=== PATIENT | male | born 1955 | race Caucasian/White ===

== ENCOUNTER 2017-09-26 11:05 | Inpatient (IN) | payer OTHER ==
[~2017-09-26] VITALS: Ht 170.2 cm; Wt 130.7 kg
[~2017-09-26 11:05] MED LIST: ALBUTEROL; ASPIRIN81 M2 PO; DIOVAN160 MG PO; POTASSIUM-9999 MG PO; SPIRIVA18 MCG INH; SYMBICORT 80-46.9 GM IH; TRAZODONE HCL50 MG PO; VITAMIN C500 M5 PO; Z.0.BENTYL20 MG; Z.0.DIOVAN HCT 3201 PO; Z.0.FLAGYL500 MG; Z.0.LASIX80 MG PO; Z.0.LOSARTAN-HCTZ1 E PO; Z.0.SIMVASTATIN40 MG PO; Z.0.VYTORIN 10-401 E PO; [UNRECOGNIZED DRUG - CODE] PO; [UNRECOGNIZED DRUG - OTHER] PO
--- NOTE | 2017-09-26 11:49 | Diagnostic Imaging Report ---
PROCEDURE: A single AP view of the chest. COMPARISON: 05/21/12 INDICATIONS: SOB FINDINGS: Lines/tubes: None. Lungs: Limited by body habitus. The lungs are well inflated. Mild vascular congestion and possibly interstitial edema. Pleura: There is no pleural effusion or pneumothorax. Heart and mediastinum: Enlarged cardiomediastinal silhouette. Bones: No acute bony abnormality. IMPRESSION: Enlarged cardiomediastinal silhouette, mild vascular congestion, and possibly mild interstitial edema, unchanged from prior exam. Dictated by: Pipo Cline M.D. on 09/26/2017 at 11:58 Electronically approved by: Pipo Cline M.D. on 09/26/2017 at 11:58
[2017-09-26 11:52] LABS: BASOPHILS # (AUTO) 0.1 (0.0-0.1); EOSINOPHILS # (AUTO) 0.1 (0.0-0.4); EOSINOPHILS % 1.1 % (0.0-6.0); HEMATOCRIT 60.2 % (38.2-49.6); HEMOGLOBIN 18.6 g/dL (14.0-18.0); LYMPHOCYTES # (AUTO) 1.8 (1.0-3.2); LYMPHOCYTES % 14.4 % (18.0-39.1); MEAN CORPUSCULAR HEMOGLOBIN 29.9 pg (28-32); MEAN CORPUSCULAR HGB CONC 30.9 g/dL (31-35); MEAN CORPUSCULAR VOLUME 96.8 fL (81-99); MONOCYTES # (AUTO) 1.5 (0.2-0.8); MONOCYTES % 11.5 % (4.4-11.3); NEUTROPHILS # (AUTO) 9.1 (2.1-6.9); NEUTROPHILS % 71.5 % (38.7-80.0); PLATELET COUNT 216 x10e3/uL (140-360); RED BLOOD COUNT 6.22 x10e6/uL (4.3-5.7); RED CELL DISTRIBUTION WIDTH 15.8 % (11.7-14.4)
[2017-09-26 12:08] LABS: INR 0.91; PROTHROMBIN TIME 12.7 seconds (11.9-14.5)
[2017-09-26 12:09] LABS: PARTIAL THROMBOPLASTIN TIME 30.7 seconds (23.8-35.5)
[2017-09-26 12:23] LABS: ALANINE AMINOTRANSFERASE 58 IU/L (0-55); ALBUMIN 2.9 g/dL (3.5-5.0); ALBUMIN/GLOBULIN RATIO 0.7 (0.8-2.0); ALKALINE PHOSPHATASE 107 IU/L (40-150); ANION GAP 12.2 mmol/L (8-16); BLOOD UREA NITROGEN 16 mg/dL (7-26); BUN/CREATININE RATIO 20 (6-25); CALCIUM 8.8 mg/dL (8.4-10.2); CARBON DIOXIDE 37 mmol/L (22-29); CHLORIDE 100 mmol/L (98-107); CREATININE, SERUM 0.82 mg/dL (0.72-1.25); EST GLOMERULAR FILTRATION RATE > 60 ML/MIN (60-); GLUCOSE 104 mg/dL (74-118); POTASSIUM 4.2 mmol/L (3.5-5.1); SODIUM 145 mmol/L (136-145)
[2017-09-26 12:26] LABS: B-TYPE NATRIURETIC PEPTIDE2 893.1 pg/mL (0-100)
[2017-09-26 12:33] LABS: TROPONIN I 0.051 ng/mL (0-0.300)
[2017-09-26] MEDS ORDERED: LEVOFLOXACIN 500MG/D5W 100ML IV SCH (13:00)
[2017-09-26 13:03] LABS: ABG PH 7.22 (7.31-7.41)
[2017-09-26 13:04] LABS: ABG HCO3 40 mmol/L (23-28); ABG PCO2 97 mmHg (41-51); ABG PO2 100 mmHg (80-105)
[2017-09-26] MEDS ORDERED: LEVOFLOXACIN 500MG/D5W 100ML 100 ML IV SCH (13:30)
[2017-09-26] MEDS: METHYLPREDNISOLONE SOD SUCC 125 MG/2ML VIAL IV SCH (14:08)
[2017-09-26] MEDS ORDERED: BISACODYL 5 MG TAB EC PO PRN (16:15)
[2017-09-26] MEDS ORDERED: TIOTROPIUM 18 MCG INH POWDER INH SCH (16:15)
[2017-09-26] MEDS ORDERED: TIOTROPIUM 18 MCG INH POWDER INH PRN (16:30)
[2017-09-26] MEDS: ALBUTEROL/IPRATROPIUM 3 ML NEB NEB SCH ×3 (16:39→23:45)
--- NOTE | 2017-09-26 16:51 | History and Physical ---
CHIEF COMPLAINT: Worsening dyspnea. HISTORY OF PRESENT ILLNESS: The patient is a 61-year-old man. He has a history of cardiac disease. He has had 2 prior stents in the past. He also had a catheterization and echocardiogram that showed a chronic decreased ejection fraction. He is currently under the care of Dr. Aldana and takes Lasix on a regular basis along with Diovan for his blood pressure. The patient also has chronic obstructive pulmonary disease. His last pulmonary function test done 3 or 4 years ago showed severe disease with an FEV1 of 1.56 liters. He has a history of sleep apnea and uses BiPAP at night. He came to the hospital complaining of worsening congestion and difficulty breathing. He noted a cough productive of only small amounts of phlegm. He did not complain of any chest pain. He may have had some chills, but does not seem certain about this. PAST MEDICAL HISTORY 1. Severe COPD based on GOLD criteria. 2. Obstructive sleep apnea. 3. Coronary artery disease. 4. Hypertension. PAST SURGICAL HISTORY 1. Status post cardiac stents. 2. Status post bilateral iliac stents in 2004. 3. Thumb surgery. 4. Knee surgery. FAMILY HISTORY: The paternal grandfather from cancer, and maternal grandfather from cancer. SOCIAL HISTORY: The patient quit smoking recently. He is not an active drinker. ALLERGIES: THERE ARE NO KNOWN DRUG ALLERGIES. REVIEW OF SYSTEMS: The patient does not have fever or chills. There is no headache. He is not having any neck pain. He does not complain of chest pain. He does note some difficulty breathing. He has some congestion and a rare cough. He is not having any abdominal pain. He has no nausea or vomiting. He does not complain of leg edema. He has no focal neurological problems. PHYSICAL EXAMINATION VITAL SIGNS: The blood pressure is 150/81, and the saturation is 97%. The heart rate is 83, and the respiratory rate is 24. HEENT: Examination shows no facial swelling or erythema. The nasal mucosa is normal. The oropharynx is normal. LYMPHATIC: Examination shows no submandibular, cervical or supraclavicular adenopathy. CARDIAC: Regular rate and rhythm with normal S1 and S2. There are no murmurs or rubs. LUNGS: Auscultation of the lungs reveals rhonchorous breath sounds bilaterally. There is no wheezing. ABDOMEN: Soft, nontender. There is no rebound or guarding. EXTREMITIES: 2 to 3+ leg edema. There are skin changes consistent with chronic venous stasis. LABORATORY DATA: The white blood cell count is 12.8, and the hemoglobin is 18.6. Platelet count is 216. The JBD-cm-cuitlexryt ratio is normal. The other electrolytes are within normal limits. The BNP is 893. Troponin I is normal. RADIOGRAPHIC DATA: The chest x-ray shows some cardiomegaly and possibly some cephalization. IMPRESSION 1. Cilcu-vk-vthziwc systolic congestive heart failure. 2. Lndhg-sl-mcxcztr respiratory failure. 3. Obstructive sleep apnea. 4. Chronic leg edema and chronic venous stasis. 5. Chronic obstructive pulmonary disease. 6. Obstructive sleep apnea. 7. Peripheral vascular disease and has required prior iliac stents. 8. Coronary disease that has required prior cardiac stent. PLAN 1. Patient will be started on Solu-Medrol at 1 mg per kg along with bronchodilators and antibiotics. 2. Patient will need an evaluation for influenza. 3. Patient will need intravenous diuretics because of his elevated BNP and congestive heart failure. 4. Continue BiPAP. 5. Evaluation of chronic leg edema. Job#: [id number]
[2017-09-26] MEDS ORDERED: ENOXAPARIN SOD INJ 40 MG/0.4 ML SYR SC SCH (17:00)
[2017-09-26] MEDS ORDERED: FUROSEMIDE INJ 10 MG/ML 4 ML VIAL IV SCH (17:00)
[2017-09-26 17:22] LABS: ABG PH 7.27 (7.31-7.41)
[2017-09-26 17:23] LABS: ABG HCO3 38 mmol/L (23-28); ABG PCO2 82 mmHg (41-51); ABG PO2 73 mmHg (80-105)
[2017-09-26] MEDS ORDERED: LORAZEPAM INJ 2 MG/ML VIAL IV ONE (17:30)
[2017-09-26] MEDS: AZITHROMYCIN 500MG/NS 250 ML 250 ML IV SCH (17:53)
[2017-09-26] MEDS: OSELTAMIVIR PHOSPHATE 75 MG CAP PO SCH (17:53)
[2017-09-26] MEDS: SIMVASTATIN 40 MG TAB PO SCH (17:56)
[2017-09-26] MEDS: TRAZODONE HCL 50 MG TAB PO SCH (17:56)
[2017-09-26] MEDS ORDERED: ASPIRIN 81 MG CHEW TAB PO ONE (19:00)
[2017-09-26 19:29] LABS: CREATINE KINASE MB 3.8 ng/mL (0.00-5.00)
[2017-09-26] MEDS: ASPIRIN 81 MG CHEW TAB PO SCH (19:31)
[2017-09-26 19:38] LABS: THYROID STIMULATING HORMONE 1.986 uIU/mL (0.350-4.940)
[2017-09-26 21:34] LABS: CREATINE KINASE MB 4.1 ng/mL (0.00-5.00); TROPONIN I 0.039 ng/mL (0-0.300)
[2017-09-26] MEDS ORDERED: AMIODARONE HCL 200 MG TAB PO SCH (22:00)
[2017-09-27] MEDS: ALBUTEROL/IPRATROPIUM 3 ML NEB NEB SCH ×6 (00:15→19:15)
--- NOTE | 2017-09-27 05:32 | Consultation ---
DATE OF CONSULTATION: September 26, 2017 CARDIOLOGY CONSULTATION ATTENDING PHYSICIAN: Dr. Sandeep Chester CLINICAL HISTORY: This is a 61-year-old white man referred by Dr. Sandeep Chester for cardiovascular evaluation in the setting of respiratory distress. This patient was hospitalized in April of 2017 at [facility] because of suicide ideation. Workup at that time included echocardiogram that showed an ejection fraction of 55% with left ventricular hypertrophy. He has been followed by Dr. Sandeep Chester and presented to the emergency room with shortness of breath and is being admitted. Cardiology consultation requested. PAST MEDICAL HISTORY: Remarkable for hypertension, hyperlipidemia, previous chest pains, COPD, peripheral vascular disease, status post bilateral iliac stents. He had a cardiac catheterization 3 years ago that was said to be negative. PAST SURGICAL HISTORY: Knee surgery and thumb surgery. FAMILY HISTORY: Grandfather had cancer. Grandmother had cancer. PERSONAL/SOCIAL HISTORY: He continues to smoke. ALLERGIES: NONE KNOWN. MEDICATIONS 1. Aspirin. 2. Potassium. 3. Symbicort 160 per 4.5 b.i.d. 4. Spiriva HandiHaler. 5. Lasix 80 mg daily. 6. Ventolin HFA. 7. Albuterol. 8. Trazodone 50 mg daily. 9. Simvastatin 40 mg daily. 10. Diovan 320 mg p.o. daily. REVIEW OF SYSTEMS: Noncontributory. PHYSICAL EXAMINATION GENERAL: He has a BiPAP in position. CARDIAC: Jugular veins are not distended. S1 and S2 are regular. There is no appreciable murmurs. LUNGS: Show wheezing. ABDOMEN: Soft. Bowel sounds are present. EXTREMITIES: Show no cyanosis, clubbing or edema. LABORATORY STUDIES: Chest x-ray showed cardiomegaly and pulmonary congestion. White count is 12,700, hemoglobin 18.6 and platelet count 216,000. The sodium is 145, potassium 4.2, bicarb 27, BUN 16, creatinine 0.8. BNP is 893. Albumin 2.9. Blood gas showed a pH of 7.22, pCO2 97, pO2 100. INR is 0.91. IMPRESSION 1. Respiratory failure due to end-stage chronic obstructive pulmonary disease. 2. Atypical chest pains of 2 weeks' duration with history of the same. 3. Hypertension. 4. Hyperlipidemia. 5. Peripheral vascular disease, status post bilateral iliac stents. 6. Negative cardiac catheterization in 2012. RECOMMENDATION: Treatment for REPORT NOT COMPLETED, LENGTH 5:35 Job#: [id number] RI
[2017-09-27] MEDS: METHYLPREDNISOLONE SOD SUCC 125 MG/2ML VIAL IV SCH ×2 (05:42→14:30)
[2017-09-27 07:25] VITALS: BP 187/85
[2017-09-27 07:56] LABS: BASOPHILS # (AUTO) 0.1 (0.0-0.1); BASOPHILS % 0.7 % (0.0-1.0); EOSINOPHILS % 0.1 % (0.0-6.0); HEMATOCRIT 63.5 % (38.2-49.6); HEMOGLOBIN 19.2 g/dL (14.0-18.0); LYMPHOCYTES # (AUTO) 1.2 (1.0-3.2); LYMPHOCYTES % 11.3 % (18.0-39.1); MEAN CORPUSCULAR HEMOGLOBIN 29.5 pg (28-32); MEAN CORPUSCULAR HGB CONC 30.2 g/dL (31-35); MEAN CORPUSCULAR VOLUME 97.5 fL (81-99); MONOCYTES % 9.9 % (4.4-11.3); NEUTROPHILS # (AUTO) 8.1 (2.1-6.9); NEUTROPHILS % 77.5 % (38.7-80.0); PLATELET COUNT 190 x10e3/uL (140-360); RED BLOOD COUNT 6.51 x10e6/uL (4.3-5.7); RED CELL DISTRIBUTION WIDTH 15.9 % (11.7-14.4)
[2017-09-27] MEDS ORDERED: ASPIRIN 81 MG CHEW TAB PO SCH (09:00)
[2017-09-27] MEDS ORDERED: NON-FORMULARY MEDICATION (Aspirin 81 MG) PO SCH (09:00)
[2017-09-27] MEDS ORDERED: POTASSIUM 595 MG PO SCH (09:00)
[2017-09-27] MEDS ORDERED: CHOLECALCIFEROL 2000 UNIT PO SCH (09:00)
[2017-09-27] MEDS ORDERED: VALSARTAN 160 MG TAB PO SCH (09:00)
[2017-09-27] MEDS: VALSARTAN 160 MG TAB PO SCH (09:13)
[2017-09-27] MEDS: CHOLECALCIFEROL 1,000 UNIT TAB PO SCH (09:13)
[2017-09-27] MEDS: OSELTAMIVIR PHOSPHATE 75 MG CAP PO SCH ×2 (09:13→17:14)
[2017-09-27] MEDS: ASPIRIN 81 MG CHEW TAB PO SCH (09:14)
[2017-09-27] MEDS: POTASSIUM CHLORIDE 10 MEQ TABCR PO SCH (09:14)
[2017-09-27] MEDS: ENOXAPARIN SOD INJ 40 MG/0.4 ML SYR SC SCH (09:15)
[2017-09-27] MEDS: NICOTINE 7 MG PATCH TOP SCH (09:15)
[2017-09-27] MEDS ORDERED: FUROSEMIDE INJ 100 MG in SODIUM CHLORIDE 0.9% 100 ML 90 ML IV SCH (09:30)
[2017-09-27 09:56] LABS: ALANINE AMINOTRANSFERASE 51 IU/L (0-55); ALBUMIN 2.9 g/dL (3.5-5.0); ALBUMIN/GLOBULIN RATIO 0.7 (0.8-2.0); ALKALINE PHOSPHATASE 100 IU/L (40-150); ANION GAP 12.2 mmol/L (8-16); BLOOD UREA NITROGEN 18 mg/dL (7-26); BUN/CREATININE RATIO 23 (6-25); CALCIUM 8.6 mg/dL (8.4-10.2); CARBON DIOXIDE 37 mmol/L (22-29); CHLORIDE 100 mmol/L (98-107); CREATINE KINASE 41 IU/L (30-200); CREATININE, SERUM 0.79 mg/dL (0.72-1.25); EST GLOMERULAR FILTRATION RATE > 60 ML/MIN (60-); GLUCOSE 99 mg/dL (74-118); POTASSIUM 4.2 mmol/L (3.5-5.1); SODIUM 145 mmol/L (136-145)
[2017-09-27 10:02] LABS: TROPONIN I 0.047 ng/mL (0-0.300)
[2017-09-27] MEDS: AZITHROMYCIN 500MG/NS 250 ML 250 ML IV SCH (15:50)
[2017-09-27 15:55] LABS: ABG PH 7.21 (7.31-7.41)
[2017-09-27 15:57] LABS: ABG HCO3 39 mmol/L (23-28); ABG PCO2 97 mmHg (41-51); ABG PO2 77 mmHg (80-105)
[2017-09-27 15:59] LABS: ABG HCO3 42 mmol/L (23-28); ABG PCO2 96 mmHg (41-51); ABG PH 7.26 (7.31-7.41); ABG PO2 79 mmHg (80-105)
[2017-09-27] MEDS ORDERED: KETOROLAC TROMETHAMINE 30 MG/ML VIAL IV STA (16:11)
[2017-09-27] MEDS ORDERED: VANCOMYCIN 1GM/NS 250 ML 250 ML IV ONE (16:15)
[2017-09-27 17:43] LABS: CREATINE KINASE MB 3.7 ng/mL (0.00-5.00); TROPONIN I 0.053 ng/mL (0-0.300)
--- NOTE | 2017-09-27 18:16 | Progress Note ---
DATE: September 27, 2017 PULMONARY CRITICAL CARE PROGRESS NOTE SUBJECTIVE: The patient continues on BiPAP. He is on a Lasix drip. He notes slight improvement, but still complains of dyspnea. He complains of pain in the sacral area. OBJECTIVE VITAL SIGNS: Blood pressure 134/70 and pulse 79, respiratory rate 15. He is on BiPAP at 18/10 with a backup rate of 10. HEENT: No facial swelling or erythema. The nasal mucosa is normal. The oropharynx is normal. LYMPHATICS: No submandibular, cervical or supraclavicular adenopathy. CARDIAC EXAM: Regular rate and rhythm with normal S1 and S2. There are no murmurs or rubs. LUNGS: Auscultation of the lungs reveals increased breath sounds bilaterally. There is no wheezing. ABDOMEN: Soft and nontender. There is no rebound or guarding. EXTREMITIES: No leg edema or calf tenderness. There is chronic bilateral leg edema. LABORATORY DATA: Blood gas is 7.26 with a CO2 of 96 and an O2 of 79. The bicarb is 42. The BUN to creatinine ratio is 18 to 0.8. The other electrolytes are normal except for an elevated carbon dioxide. The blood counts are within normal limits. IMPRESSION 1. Hwpla-fv-idkhibe respiratory failure. 2. Chronic obstructive pulmonary disease with cor pulmonale. 3. Jxats-yq-tmuyuxu systolic congestive heart failure. PLAN: 1. We will continue the BiPAP. 2. The patient will be continued on Solu-Medrol. 3. The patient will continue the Lasix drip until tomorrow. 4. Antibiotics. Job#: [id number]
[2017-09-27] MEDS: TRAZODONE HCL 50 MG TAB PO SCH (20:40)
[2017-09-27] MEDS: SIMVASTATIN 40 MG TAB PO SCH (20:40)
[2017-09-27] MEDS: HYDROCODONE/APAP 5MG-325MG TAB PO PRN (20:56)
[2017-09-28] VITALS (16 sets, daily range): BP systolic 130–182; BP diastolic 63–111
[2017-09-28] MEDS: METHYLPREDNISOLONE SOD SUCC 125 MG/2ML VIAL IV SCH ×2 (01:30→13:51)
[2017-09-28 01:51] LABS: BASOPHILS % 0.2 % (0.0-1.0); HEMATOCRIT 58.1 % (38.2-49.6); HEMOGLOBIN 17.7 g/dL (14.0-18.0); LYMPHOCYTES # (AUTO) 0.5 (1.0-3.2); LYMPHOCYTES % 5.1 % (18.0-39.1); MEAN CORPUSCULAR HEMOGLOBIN 29.5 pg (28-32); MEAN CORPUSCULAR HGB CONC 30.5 g/dL (31-35); MONOCYTES # (AUTO) 0.6 (0.2-0.8); MONOCYTES % 6.4 % (4.4-11.3); NEUTROPHILS # (AUTO) 8.8 (2.1-6.9); NEUTROPHILS % 87.9 % (38.7-80.0); PLATELET COUNT 207 x10e3/uL (140-360); RED BLOOD COUNT 5.99 x10e6/uL (4.3-5.7); RED CELL DISTRIBUTION WIDTH 15.1 % (11.7-14.4)
[2017-09-28 02:08] LABS: ALANINE AMINOTRANSFERASE 44 IU/L (0-55); ALBUMIN 2.8 g/dL (3.5-5.0); ALBUMIN/GLOBULIN RATIO 0.7 (0.8-2.0); ALKALINE PHOSPHATASE 88 IU/L (40-150); ANION GAP 11.6 mmol/L (8-16); BLOOD UREA NITROGEN 25 mg/dL (7-26); BUN/CREATININE RATIO 29 (6-25); CALCIUM 8.3 mg/dL (8.4-10.2); CARBON DIOXIDE 38 mmol/L (22-29); CHLORIDE 98 mmol/L (98-107); CREATININE, SERUM 0.86 mg/dL (0.72-1.25); EST GLOMERULAR FILTRATION RATE > 60 ML/MIN (60-); GLUCOSE 126 mg/dL (74-118); POTASSIUM 4.6 mmol/L (3.5-5.1); SODIUM 143 mmol/L (136-145)
[2017-09-28] MEDS: ALBUTEROL/IPRATROPIUM 3 ML NEB NEB SCH ×4 (03:00→20:45)
--- NOTE | 2017-09-28 07:35 | Diagnostic Imaging Report ---
PROCEDURE: A single AP view of the chest. COMPARISON: Portable chest 09/26/2017. INDICATIONS: SHORTNESS OF BREATH. COPD FINDINGS: Lines/tubes: None. Lungs: Bilateral perihilar opacifications. No parenchymal mass. Pleura: There is no pleural effusion or pneumothorax. Heart and mediastinum: The heart and the mediastinum are unremarkable. Atherosclerotic calcifications. Bones: No acute bony abnormality. Degenerative changes of the thoracic spine. IMPRESSION: Bilateral perihilar opacifications may represent pulmonary edema. Dictated by: Chano Pratt M.D. on 09/28/2017 at 7:43 Electronically approved by: Chano Pratt M.D. on 09/28/2017 at 7:43
[2017-09-28] MEDS ORDERED: FUROSEMIDE 20 MG TAB PO SCH (09:00)
[2017-09-28] MEDS: HYDROCODONE/APAP 5MG-325MG TAB PO PRN (09:19)
[2017-09-28] MEDS: ASPIRIN 81 MG CHEW TAB PO SCH (09:19)
[2017-09-28] MEDS: VALSARTAN 160 MG TAB PO SCH (09:21)
[2017-09-28] MEDS: ENOXAPARIN SOD INJ 40 MG/0.4 ML SYR SC SCH (09:22)
[2017-09-28] MEDS: CHOLECALCIFEROL 1,000 UNIT TAB PO SCH (09:22)
[2017-09-28] MEDS: OSELTAMIVIR PHOSPHATE 75 MG CAP PO SCH ×2 (09:22→17:00)
[2017-09-28] MEDS: NICOTINE 7 MG PATCH TOP SCH (09:22)
[2017-09-28] MEDS: POTASSIUM CHLORIDE 10 MEQ TABCR PO SCH (09:22)
--- NOTE | 2017-09-28 10:58 | Cardiology Report ---
DATE OF STUDY: September 27, 2017 ATTENDING PHYSICIAN: Dr. Sandeep Chester ECHOCARDIOGRAM M-MODE: Dilated right ventricle. Dilated left atrium. Left ventricular hypertrophy. Borderline left ventricular contractility. Normal mitral, aortic and tricuspid valves. No pericardial effusion. SECTOR SCAN: Dilated right ventricle. Dilated left atrium. Left ventricular hypertrophy. Ejection fraction is approximately 50%. Mitral, aortic and tricuspid valves are grossly normal. There is no pericardial effusion. CARDIAC DOPPLER STUDY WITH COLOR: No significant valvular regurgitation or stenosis. CONCLUSION 1. Left ventricular hypertrophy with ejection fraction of approximately 50%. 2. Mildly enlarged left atrium. 3. Mildly enlarged right ventricle suggestive of pulmonary hypertension. 4. No significant tricuspid regurgitation to measure. Right ventricular pressure and vegetation. Job#: [id number] RI cc:SANDEEP CHESTER MD
--- NOTE | 2017-09-28 14:00 | Progress Note ---
DATE: PULMONARY PROGRESS NOTE SUBJECTIVE: The patient was diuresed yesterday several liters. He feels better this morning. He has less dyspnea. He was able to come off the BiPAP and placed on a nasal cannula. OBJECTIVE VITAL SIGNS: The blood pressure is 159/84, the heart rate is 80. HEENT: No facial swelling or erythema. The oropharynx is normal. LYMPHATICS: No submandibular, cervical or supraclavicular adenopathy. CARDIAC: Regular rate and rhythm with normal S1 and S2. There are no murmurs or rubs. LUNGS: Auscultation of the lungs reveals clear breath sounds. There is some rhonchi. ABDOMEN: Soft and nontender. EXTREMITIES: The patient is still has chronic leg edema. IMPRESSION 1. Rsqsp-bm-hukjrcv respiratory failure. 2. Yesls-mx-kvimvlv systolic heart failure. 3. Chronic obstructive pulmonary disease. 4. Obstructive sleep apnea. RECOMMENDATIONS 1. Continue the Solu-Medrol and aggressive bronchodilator therapy. 2. Stop the Lasix drip and switch back to daily Lasix. 3. Continue antibiotics. 4. Wean oxygen as tolerated. Job#: [id number] VAS
[2017-09-28] MEDS ORDERED: HYDROCODONE/APAP 10MG-325MG TAB PO PRN (14:15)
[2017-09-28 14:42] LABS: ABG HCO3 41 mmol/L (23-28); ABG PCO2 66 mmHg (41-51); ABG PO2 65 mmHg (80-105)
[2017-09-28] MEDS: AZITHROMYCIN 500MG/NS 250 ML 250 ML IV SCH (16:15)
[2017-09-28] MEDS: TRAZODONE HCL 50 MG TAB PO SCH (20:50)
[2017-09-28] MEDS: SIMVASTATIN 40 MG TAB PO SCH (20:50)
[2017-09-29] VITALS (10 sets, daily range): BP systolic 128–167; BP diastolic 72–91
[2017-09-29] MEDS: ALBUTEROL/IPRATROPIUM 3 ML NEB NEB SCH ×7 (00:30→22:50)
[2017-09-29] MEDS: METHYLPREDNISOLONE SOD SUCC 125 MG/2ML VIAL IV SCH ×2 (01:30→16:17)
[2017-09-29 06:46] LABS: BASOPHILS % 0.2 % (0.0-1.0); HEMOGLOBIN 18.2 g/dL (14.0-18.0); LYMPHOCYTES # (AUTO) 0.3 (1.0-3.2); LYMPHOCYTES % 3.4 % (18.0-39.1); MEAN CORPUSCULAR HEMOGLOBIN 29.4 pg (28-32); MEAN CORPUSCULAR HGB CONC 30.8 g/dL (31-35); MEAN CORPUSCULAR VOLUME 95.2 fL (81-99); MONOCYTES # (AUTO) 0.5 (0.2-0.8); MONOCYTES % 4.8 % (4.4-11.3); NEUTROPHILS # (AUTO) 8.8 (2.1-6.9); NEUTROPHILS % 91.2 % (38.7-80.0); PLATELET COUNT 226 x10e3/uL (140-360); RED CELL DISTRIBUTION WIDTH 15.4 % (11.7-14.4)
[2017-09-29 07:19] LABS: ALANINE AMINOTRANSFERASE 38 IU/L (0-55); ALBUMIN/GLOBULIN RATIO 0.8 (0.8-2.0); ALKALINE PHOSPHATASE 83 IU/L (40-150); ANION GAP 13.4 mmol/L (8-16); BLOOD UREA NITROGEN 23 mg/dL (7-26); BUN/CREATININE RATIO 33 (6-25); CALCIUM 8.8 mg/dL (8.4-10.2); CARBON DIOXIDE 35 mmol/L (22-29); CHLORIDE 98 mmol/L (98-107); EST GLOMERULAR FILTRATION RATE > 60 ML/MIN (60-); GLUCOSE 119 mg/dL (74-118); POTASSIUM 4.4 mmol/L (3.5-5.1); SODIUM 142 mmol/L (136-145)
[2017-09-29] MEDS: FUROSEMIDE INJ 10 MG/ML 4 ML VIAL IV SCH ×2 (08:45→09:23)
[2017-09-29] MEDS: VALSARTAN 160 MG TAB PO SCH (08:45)
[2017-09-29] MEDS: POTASSIUM CHLORIDE 10 MEQ TABCR PO SCH (08:45)
[2017-09-29] MEDS: ASPIRIN 81 MG CHEW TAB PO SCH (08:45)
[2017-09-29] MEDS: CHOLECALCIFEROL 1,000 UNIT TAB PO SCH (08:46)
[2017-09-29] MEDS: ENOXAPARIN SOD INJ 40 MG/0.4 ML SYR SC SCH (08:46)
[2017-09-29] MEDS: NICOTINE 7 MG PATCH TOP SCH (08:46)
[2017-09-29] MEDS: OSELTAMIVIR PHOSPHATE 75 MG CAP PO SCH ×2 (08:46→17:28)
[2017-09-29] MEDS: AZITHROMYCIN 500MG/NS 250 ML 250 ML IV SCH (16:45)
[2017-09-29] MEDS: SIMVASTATIN 40 MG TAB PO SCH (21:00)
[2017-09-29] MEDS: TRAZODONE HCL 50 MG TAB PO SCH (21:00)
[2017-09-30] MEDS: METHYLPREDNISOLONE SOD SUCC 125 MG/2ML VIAL IV SCH ×2 (01:04→13:17)
[2017-09-30] MEDS: ALBUTEROL/IPRATROPIUM 3 ML NEB NEB SCH ×6 (03:00→23:30)
[2017-09-30 04:29] VITALS: BP 171/81
[2017-09-30 07:10] VITALS: BP 170/90
[2017-09-30 07:30] VITALS: BP 170/90
[2017-09-30] MEDS: CHOLECALCIFEROL 1,000 UNIT TAB PO SCH (08:09)
[2017-09-30] MEDS: NICOTINE 7 MG PATCH TOP SCH (08:09)
[2017-09-30] MEDS: ENOXAPARIN SOD INJ 40 MG/0.4 ML SYR SC SCH (08:09)
[2017-09-30] MEDS: ASPIRIN 81 MG CHEW TAB PO SCH (08:09)
[2017-09-30] MEDS: FUROSEMIDE INJ 10 MG/ML 4 ML VIAL IV SCH (08:09)
[2017-09-30] MEDS: OSELTAMIVIR PHOSPHATE 75 MG CAP PO SCH ×2 (08:09→16:06)
[2017-09-30] MEDS: VALSARTAN 160 MG TAB PO SCH (08:10)
[2017-09-30] MEDS: POTASSIUM CHLORIDE 10 MEQ TABCR PO SCH (08:10)
[2017-09-30] MEDS ORDERED: AMIODARONE HCL 200 MG TAB PO SCH (09:00)
[2017-09-30] MEDS ORDERED: ACETAZOLAMIDE 250 MG TAB PO SCH (11:00)
[2017-09-30 13:00] VITALS: BP 164/102
[2017-09-30] MEDS: ACETAZOLAMIDE 250 MG TAB PO SCH (13:17)
[2017-09-30] MEDS ORDERED: TERAZOSIN HCL 1 MG CAP PO ONE (13:30)
[2017-09-30] MEDS: CLOTRIMAZOLE 1% CR 15 GM TOP SCH (16:06)
[2017-09-30] MEDS: AZITHROMYCIN 500MG/NS 250 ML 250 ML IV SCH (16:06)
[2017-09-30 16:07] VITALS: BP 166/86
[2017-09-30] MEDS: SIMVASTATIN 40 MG TAB PO SCH (20:13)
[2017-09-30] MEDS: TERAZOSIN HCL 1 MG CAP PO SCH (20:13)
[2017-09-30] MEDS: TRIAMCINOLONE 0.1% OINTMENT 15 GM TUBE TP SCH (20:13)
[2017-09-30] MEDS: TRAZODONE HCL 50 MG TAB PO SCH (20:13)
[2017-09-30 20:16] VITALS: BP 143/75
[2017-10-01] VITALS (8 sets, daily range): BP systolic 135–175; BP diastolic 81–94
[2017-10-01] MEDS: METHYLPREDNISOLONE SOD SUCC 125 MG/2ML VIAL IV SCH ×2 (01:22→14:02)
[2017-10-01] MEDS: ALBUTEROL/IPRATROPIUM 3 ML NEB NEB SCH ×6 (03:15→23:45)
[2017-10-01] MEDS: ASPIRIN 81 MG CHEW TAB PO SCH (08:46)
[2017-10-01] MEDS: CHOLECALCIFEROL 1,000 UNIT TAB PO SCH (08:46)
[2017-10-01] MEDS: ENOXAPARIN SOD INJ 40 MG/0.4 ML SYR SC SCH (08:46)
[2017-10-01] MEDS: FUROSEMIDE 40 MG TAB PO SCH (08:46)
[2017-10-01] MEDS: POTASSIUM CHLORIDE 10 MEQ TABCR PO SCH (08:46)
[2017-10-01] MEDS: NICOTINE 7 MG PATCH TOP SCH (08:46)
[2017-10-01] MEDS: OSELTAMIVIR PHOSPHATE 75 MG CAP PO SCH ×2 (08:46→17:25)
[2017-10-01] MEDS: VALSARTAN 160 MG TAB PO SCH (08:46)
[2017-10-01] MEDS: CLOTRIMAZOLE 1% CR 15 GM TOP SCH ×2 (09:00→17:00)
[2017-10-01] MEDS: TRIAMCINOLONE 0.1% OINTMENT 15 GM TUBE TP SCH ×2 (09:00→20:46)
[2017-10-01] MEDS: AZITHROMYCIN 500MG/NS 250 ML 250 ML IV SCH (15:40)
[2017-10-01] MEDS: TRAZODONE HCL 50 MG TAB PO SCH (20:45)
[2017-10-01] MEDS: TERAZOSIN HCL 1 MG CAP PO SCH (20:45)
[2017-10-01] MEDS: SIMVASTATIN 40 MG TAB PO SCH (20:46)
[2017-10-02] VITALS (8 sets, daily range): BP systolic 115–158; BP diastolic 39–94
[2017-10-02] MEDS: METHYLPREDNISOLONE SOD SUCC 125 MG/2ML VIAL IV SCH (01:47)
[2017-10-02] MEDS: ALBUTEROL/IPRATROPIUM 3 ML NEB NEB SCH ×6 (03:00→22:55)
[2017-10-02 06:01] LABS: BASOPHILS % 0.2 % (0.0-1.0); HEMATOCRIT 55.9 % (38.2-49.6); HEMOGLOBIN 17.6 g/dL (14.0-18.0); LYMPHOCYTES # (AUTO) 0.2 (1.0-3.2); LYMPHOCYTES % 2.6 % (18.0-39.1); MEAN CORPUSCULAR HEMOGLOBIN 29.3 pg (28-32); MEAN CORPUSCULAR HGB CONC 31.5 g/dL (31-35); MEAN CORPUSCULAR VOLUME 93.2 fL (81-99); MONOCYTES # (AUTO) 0.3 (0.2-0.8); MONOCYTES % 3.3 % (4.4-11.3); NEUTROPHILS # (AUTO) 8.7 (2.1-6.9); NEUTROPHILS % 93.5 % (38.7-80.0); PLATELET COUNT 187 x10e3/uL (140-360); RED CELL DISTRIBUTION WIDTH 14.9 % (11.7-14.4)
[2017-10-02 06:22] LABS: ALANINE AMINOTRANSFERASE 32 IU/L (0-55); ALBUMIN 2.8 g/dL (3.5-5.0); ALBUMIN/GLOBULIN RATIO 0.8 (0.8-2.0); ALKALINE PHOSPHATASE 64 IU/L (40-150); ANION GAP 8.9 mmol/L (8-16); BLOOD UREA NITROGEN 25 mg/dL (7-26); BUN/CREATININE RATIO 31 (6-25); CALCIUM 8.6 mg/dL (8.4-10.2); CARBON DIOXIDE 31 mmol/L (22-29); CHLORIDE 100 mmol/L (98-107); EST GLOMERULAR FILTRATION RATE > 60 ML/MIN (60-); GLUCOSE 178 mg/dL (74-118); POTASSIUM 3.9 mmol/L (3.5-5.1); SODIUM 136 mmol/L (136-145)
[2017-10-02] MEDS: TRIAMCINOLONE 0.1% OINTMENT 15 GM TUBE TP SCH ×2 (09:00→21:18)
[2017-10-02] MEDS: CLOTRIMAZOLE 1% CR 15 GM TOP SCH ×2 (09:00→17:28)
[2017-10-02] MEDS: ENOXAPARIN SOD INJ 40 MG/0.4 ML SYR SC SCH (09:50)
[2017-10-02] MEDS: FUROSEMIDE 40 MG TAB PO SCH (09:50)
[2017-10-02] MEDS: POTASSIUM CHLORIDE 10 MEQ TABCR PO SCH (09:50)
[2017-10-02] MEDS: VALSARTAN 160 MG TAB PO SCH (09:50)
[2017-10-02] MEDS: ASPIRIN 81 MG CHEW TAB PO SCH (09:50)
[2017-10-02] MEDS: OSELTAMIVIR PHOSPHATE 75 MG CAP PO SCH ×2 (09:50→17:28)
[2017-10-02] MEDS: CHOLECALCIFEROL 1,000 UNIT TAB PO SCH (09:50)
[2017-10-02] MEDS: NICOTINE 7 MG PATCH TOP SCH (10:00)
[2017-10-02] MEDS: ACETAZOLAMIDE 250 MG TAB PO SCH (12:15)
--- NOTE | 2017-10-02 14:30 | Diagnostic Imaging Report ---
EXAM: XR CHEST 2 VIEWS DATE: 10/02/2017 7:30 AM INDICATION: Edema COMPARISON: 09/28/2017 FINDINGS: Lines and Tubes: None Heart and Mediastinum: Cardiomegaly stable. Aortic vascular calcifications. Lungs and Pleura: Biapical scarring present. Small pleural effusion suspected with superimposed opacity left lung base. Bones and Soft Tissues: At least 2 midthoracic vertebral bodies with height loss. IMPRESSION: 1. Probable mild edema with small effusions. 2. Superimposed opacity left lung base, more conspicuous, likely atelectasis. Infectious process not excluded. Signed by: Dr. Macario Talley MD on 10/02/2017 2:26 PM
[2017-10-02] MEDS: METHYLPREDNISOLONE SOD SUCC 40 MG/ML VIAL IV SCH (15:03)
[2017-10-02] MEDS: AZITHROMYCIN 500MG/NS 250 ML 250 ML IV SCH (17:28)
[2017-10-02] MEDS: TERAZOSIN HCL 1 MG CAP PO SCH (21:18)
[2017-10-02] MEDS: TRAZODONE HCL 50 MG TAB PO SCH (21:18)
[2017-10-02] MEDS: SIMVASTATIN 40 MG TAB PO SCH (21:18)
[2017-10-03 00:11] VITALS: BP 142/77
[2017-10-03] MEDS: METHYLPREDNISOLONE SOD SUCC 40 MG/ML VIAL IV SCH (01:45)
[2017-10-03] MEDS: ALBUTEROL/IPRATROPIUM 3 ML NEB NEB SCH ×3 (02:10→10:37)
[2017-10-03 05:36] VITALS: BP 134/71
[2017-10-03 08:00] VITALS: BP 123/64
[2017-10-03] MEDS: ENOXAPARIN SOD INJ 40 MG/0.4 ML SYR SC SCH (08:39)
[2017-10-03] MEDS: VALSARTAN 160 MG TAB PO SCH (08:39)
[2017-10-03] MEDS: CLOTRIMAZOLE 1% CR 15 GM TOP SCH (08:39)
[2017-10-03] MEDS: NICOTINE 7 MG PATCH TOP SCH (08:39)
[2017-10-03] MEDS: POTASSIUM CHLORIDE 10 MEQ TABCR PO SCH (08:39)
[2017-10-03] MEDS: FUROSEMIDE 40 MG TAB PO SCH (08:39)
[2017-10-03] MEDS: CHOLECALCIFEROL 1,000 UNIT TAB PO SCH (08:39)
[2017-10-03] MEDS: TRIAMCINOLONE 0.1% OINTMENT 15 GM TUBE TP SCH (08:39)
[2017-10-03] MEDS: ASPIRIN 81 MG CHEW TAB PO SCH (08:39)
[2017-10-03] MEDS ORDERED: PREDNISONE10 MG PO (09:15)
[2017-10-03] MEDS ORDERED: [UNRECOGNIZED DRUG - OTHER] (09:18)
== END 2017-10-03 11:16 | disposition home or self-care (01) | DRG 291 ==
LOC: ER 11:05 → ERHOLD 15:13 → EDBEDREQSVC 09-28 17:04 → IMCU 09-28 23:43 → ICU 10-02 18:30 → MED/SURG2 10-02 18:35 → IMCU 10-02 18:41 → MED/SURG2 10-02 19:56
PROVIDERS: ADMIT Internal Medicine Cardiovascular Disease; ATTEND Internal Medicine Critical Care Medicine
DX: I11.0 Hypertensive heart disease with heart failure (principal); J96.20 Acute and chronic respiratory failure, unspecified whether with hypoxia or hypercapnia; J44.1 Chronic obstructive pulmonary disease with (acute) exacerbation; I50.23 Acute on chronic systolic (congestive) heart failure; G47.33 Obstructive sleep apnea (adult) (pediatric); Z95.5 Presence of coronary angioplasty implant and graft; F17.200 Nicotine dependence, unspecified, uncomplicated; I87.2 Venous insufficiency (chronic) (peripheral); Z95.820 Peripheral vascular angioplasty status with implants and grafts; Z87.891 Personal history of nicotine dependence; I25.10 Atherosclerotic heart disease of native coronary artery without angina pectoris; E78.5 Hyperlipidemia, unspecified; D75.1 Secondary polycythemia
CPT/HCPCS: 36415; 36600; 71010; 71020; 80053; 82550; 82553; 82805; 83605; 83880; 84436; 84443; 84479; 84484; 85025; 85610; 85730; 87040; 87071; 87186; 87205; 87400; 93005; 93306; 94640; 94660; 99284; J0456; J1650; J1885; J1940; J2060; J2920; J2930; J3370

== ENCOUNTER 2017-12-26 20:50 | Inpatient (IN) | payer OTHER ==
[~2017-12-26] VITALS: Ht 170.2 cm; Wt 130.6 kg
[~2017-12-26 20:50] MED LIST changes: +PREDNISONE10 MG PO; +[UNRECOGNIZED DRUG - OTHER]
--- OUTSIDE RECORDS SUMMARY | 2017-12-26 20:54 | XMS REPORT ---
Author Author [facility] Address Unknown Phone Unavailable Care Team Providers Care Law Enforcement Director Name Role Phone SANDEEP CHESTER Unavailable Unavailable MEME GABRIEL Unavailable Unavailable Problems This patient has no known problems. Allergies, Adverse Reactions, Alerts This patient has no known allergies or adverse reactions. Medications This patient has no known medications. Results Test Description Test Time Test Comments Text Results Atomic Results Result Comments CHEST 2 VIEWS [place] [address] Patient Name: ALEX SERVIN MR #: [id number] : 1955 Age/Sex: 62/M Req #: [id number] Adm Physician: CHRISTY HANKINS MD Ordered by: SANDEEP CHESTER MD Report #: [id number] Location: [facility] Room/Bed: [place] [address] _ Procedure: [id number] DX/CHEST 2 VIEWS Exam Date: 10/02/17 Exam Time: 1406 REPORT STATUS: Signed EXAM: XR CHEST 2 VIEWS DATE: 10/02/2017 7:30 AM INDICATION: Edema COMPARISON: 2017 FINDINGS: Lines and Tubes: None Heart and Mediastinum: Cardiomegaly stable. Aortic vascular calcifications. Lungs and Pleura: Biapical scarring present. Small pleural effusion suspected with superimposed opacity left lung base. Bones and Soft Tissues: At least 2 midthoracic vertebral bodies with height loss. IMPRESSION: 1. Probable mild edema with small effusions. 2. Superimposed opacity left lung base, more conspicuous, likely atelectasis. Infectious process not excluded. Signed by: Dr. Macario Talley MD on 10/02/2017 2:26 PM Dictated By: MACARIO TALLEY MD 25 Transcribed By: LUDMILA on 10/02/171425 COPY TO: SANDEEP CHESTER MD CHEST SINGLE (PORTABLE) [place] [address] Patient Name: ALEX SERVIN MR #: [id number] : 1955 Age/Sex: 62/M Req #: [id number] Adm Physician: CHRISTY HANKINS MD Ordered by: SANDEEP CHESTER MD Report #: [id number] Location: [facility] Room/Bed: [place] [address] Procedure: [id number] DX/CHEST SINGLE (PORTABLE) Exam Date: 09/28/17 Exam Time: 0650 REPORT STATUS: Signed PROCEDURE: A single AP view of the chest. COMPARISON: Portable chest 09/26. INDICATIONS: SHORTNESS OF BREATH. COPD FINDINGS: Lines/tubes: None. Lungs: Bilateral perihilar opacifications. No parenchymal mass. Pleura: There is no pleural effusion or pneumothorax. Heart and mediastinum: The heart and the mediastinum are unremarkable. Atherosclerotic calcifications. Bones: No acute bony abnormality. Degenerative changes of the thoracic spine. IMPRESSION: Bilateral perihilar opacifications may represent pulmonary edema. Dictated by: August Acosta M.D. on 09/28/2017 at 7:43 Electronically approved by: August Acosta M.D. on 09/28/2017 at 7:43 Dictated By : AUGUST ACOSTA MD 0743 Transcribed By: INFCE on 09/28/17 0743 COPY TO: SANDEEP CHESTER MD ECHO COMPLETE (ECHOCARDIOGRAM) [place] [address] Patient Name : ALEX SERVIN MR #: [id number] : 1955 Age/Sex: 62/M Adm Physician : SANDEEP CHESTER MD Admit Date : 09/26/17 Location : MED/SURG2 Room/Bed : [facility] REPORT: Cardiology Report DATE OF STUDY: September 27, 2017 ATTENDING PHYSICIAN: Dr. Sandeep Chester ECHOCARDIOGRAM M- MODE: Dilated right ventricle. Dilated left atrium. Left ventricular hypertrophy. Borderline left ventricular contractility. Normal mitral, aortic and tricuspid valves. No pericardial effusion. SECTOR SCAN: Dilated right ventricle. Dilated left atrium. Left ventricular hypertrophy. Ejection fraction is approximately 50%. Mitral, aortic and tricuspid valves are grossly normal. There is no pericardial effusion. CARDIAC DOPPLER STUDY WITH COLOR: No significant valvular regurgitation or stenosis. CONCLUSION 1. Left ventricular hypertrophy with ejection fraction of approximately 50%. 2. Mildly enlarged left atrium. 3. Mildly enlarged right ventricle suggestive of pulmonary hypertension. 4. No significant tricuspid regurgitation to measure. Right ventricular pressure and vegetation. Job #: [id number] RI cc: SANDEEP CHESTER MD Signature Date Dictated By: ANIL ALLAN MD Transcribed By: SMEDS on 09/28/17 < Electronically signed by ANIL ALLAN MD><<Signature on File>>10/07/17 1029 COPY TO: CHEST SINGLE (PORTABLE) [address] [address] Patient Name: ALEX SERVIN MR #: [id number] : 1955 Age/Sex: 62/M Req #: [id number] Adm Physician: Ordered by: ANNA PARDO MD Report #: [id number] Location: ER Room/Bed: Procedure: [id number] DX/CHEST SINGLE (PORTABLE) Exam Date: 09/26/17 Exam Time: 1125 REPORT STATUS: Signed PROCEDURE: A single AP view of the chest. COMPARISON: 05/21/12 INDICATIONS: SOB FINDINGS: Lines/tubes: None. Lungs: Limited by body habitus. The lungs are well inflated. Mild vascular congestion and possibly interstitial edema. Pleura: There is no pleural effusion or pneumothorax. Heart and mediastinum: Enlarged cardiomediastinal silhouette. Bones: No acute bony abnormality. IMPRESSION: Enlarged cardiomediastinal silhouette, mild vascular congestion, and possibly mild interstitial edema, unchanged from prior exam. Dictated by: Pipo Bañuelos M.D. on 2017 at 11:58 Electronically approved by: Pipo Bañuelos M.D. on 2017 at 11:58 Dictated By: PIPO BAÑUELOS MD 1158 Transcribed By: AMY on 09/26/17 1158 COPY TO: ANNA PARDO MD CT ABDOMEN/PELVIS [place] [address] Patient Name: ALEX SERVIN MR #: [id number] : 1955 Age/Sex: 62/M Req # : [id number] Adm Physician: Ordered by: MEME GABRIEL MD Report # : [id number] Location: ER Room/Bed: Procedure: [id number] CT/CT ABDOMEN/PELVIS W Exam Date: 07/22/17 Exam Time: 0205 REPORT STATUS: Signed EXAM: CT ABDOMEN/PELVIS W DATE : 07/22/2017 12:30 AM INDICATION: Lower abdominal pain COMPARISON: 2015 TECHNIQUE: The abdomen and pelvis were scanned using a multidetector helical scanner. Coronal and sagittal reformations were obtained. Routine protocol performed. IV Contrast: 100 ml Isovue 370 FINDINGS: LOWER THORAX: No consolidations LIVER/BILIARY: Probable hepatic steatosis. No ductal dilatation. GALLBLADDER: Unremarkable SPLEEN: Unremarkable PANCREAS: Unremarkable ADRENALS: Unchanged right adrenal nodules, largest 3 cm previously characterized as adenomas. KIDNEYS: Symmetric perfusion. Probable right superior renal cyst best seen on coronal image 89. Nonobstructing 5 mm right renal calculus, stable. No hydronephrosis. GI TRACT: No bowel obstruction. Extensive diverticulosis. Normal appendix. VESSELS: Severe atherosclerotic changes with bilateral common iliac artery stents. Severe multifocal stenosis and/or occlusion of the common and external iliac arteries but patent distally. PERITONEUM/RETROPERITONEUM: No free air or fluid LYMPH NODES: No lymphadenopathy REPRODUCTIVE ORGANS/BLADDER: Unremarkable SOFT TISSUES: Rectus muscle diastases. BONES: Scattered degenerative changes with unchanged mild L4 anterior wedging deformity IMPRESSION: 1. No acute abnormality. Extensive diverticulosis without evidence of acute diverticulitis. 2. Severe atherosclerotic changes with bilateral common iliac artery stents. Multifocal occlusion and/or severe stenosis of the common/external iliac arteries, but patent distally. Signed by: Dr Concepcion Heaton MD on 07/22/2017 2:46 AM Dictated By: CONCEPCION HEATON MD 0246 Transcribed By: LUDMILA on 07/22/17 0246 COPY TO: MEME GABRIEL MD
[2017-12-26] MEDS ORDERED: ALBUTEROL SULF 0.083% NEB SOLN 3 ML NEB NEB STA (21:03)
[2017-12-26] MEDS ORDERED: ASPIRIN 81 MG CHEW TAB PO ONE ×3 (21:15→22:30)
[2017-12-26] MEDS ORDERED: IPRATROPIUM BROMIDE 0.02% 2.5 ML NEB NEB ONE (21:15)
[2017-12-26] MEDS ORDERED: RISPERIDONE0.5 MG PO (21:17)
[2017-12-26] MEDS ORDERED: VENTOLIN HFA18 GM INH (21:17)
[2017-12-26] MEDS ORDERED: SERTRALINE HCL100 MG PO (21:17)
[2017-12-26] MEDS ORDERED: LISINOPRIL10 MG PO (21:17)
[2017-12-26] MEDS ORDERED: ULTRAM50 MG PO (21:17)
[2017-12-26] MEDS ORDERED: DESOXIMETASONE15 G2 TOP (21:17)
[2017-12-26] MEDS ORDERED: SYMBICORT 80-10.2 GM INH (21:17)
[2017-12-26] MEDS ORDERED: TEMAZEPAM15 MG PO (21:17)
[2017-12-26 21:19] LABS: BASOPHILS # (AUTO) 0.1 (0.0-0.1); BASOPHILS % 1.2 % (0.0-1.0); EOSINOPHILS # (AUTO) 0.1 (0.0-0.4); EOSINOPHILS % 0.8 % (0.0-6.0); HEMATOCRIT 60.8 % (38.2-49.6); HEMOGLOBIN 18.8 g/dL (14.0-18.0); LYMPHOCYTES # (AUTO) 1.1 (1.0-3.2); MEAN CORPUSCULAR HEMOGLOBIN 30.2 pg (28-32); MEAN CORPUSCULAR HGB CONC 30.9 g/dL (31-35); MEAN CORPUSCULAR VOLUME 97.7 fL (81-99); MONOCYTES % 8.8 % (4.4-11.3); NEUTROPHILS # (AUTO) 8.6 (2.1-6.9); NEUTROPHILS % 78.8 % (38.7-80.0); PLATELET COUNT 159 x10e3/uL (140-360); RED BLOOD COUNT 6.22 x10e6/uL (4.3-5.7); RED CELL DISTRIBUTION WIDTH 14.9 % (11.7-14.4)
[2017-12-26] MEDS ORDERED: CARBINOXAMINE MA4 MG PO ×2 (21:23→21:25)
[2017-12-26 21:38] LABS: ALANINE AMINOTRANSFERASE 32 IU/L (0-55); ALBUMIN 3.1 g/dL (3.5-5.0); ALBUMIN/GLOBULIN RATIO 0.7 (0.8-2.0); ALKALINE PHOSPHATASE 92 IU/L (40-150); ANION GAP 13.7 mmol/L (8-16); BLOOD UREA NITROGEN 10 mg/dL (7-26); BUN/CREATININE RATIO 12 (6-25); CALCIUM 8.9 mg/dL (8.4-10.2); CARBON DIOXIDE 39 mmol/L (22-29); CHLORIDE 96 mmol/L (98-107); CREATINE KINASE 66 IU/L (30-200); CREATININE, SERUM 0.86 mg/dL (0.72-1.25); EST GLOMERULAR FILTRATION RATE > 60 ML/MIN (60-); GLUCOSE 127 mg/dL (74-118); POTASSIUM 3.7 mmol/L (3.5-5.1); SODIUM 145 mmol/L (136-145)
--- NOTE | 2017-12-26 21:45 | Diagnostic Imaging Report ---
EXAM: CHEST SINGLE (PORTABLE), AP 1 view INDICATION: Shortness of breath COMPARISON: PA and lateral view of the chest October 02 2017 FINDINGS: LINES/TUBES: None LUNGS: No consolidations or edema. PLEURA: No effusions or pneumothorax. Limited evaluation of the costophrenic angles bilaterally. HEART AND MEDIASTINUM: Stable appearance. Pulmonary vessels likely accentuated by positioning and technique. BONES AND SOFT TISSUES: No acute findings. IMPRESSION: No acute thoracic abnormality. Signed by: Dr. Elodia Alcala M.D. on 12/26/2017 9:42 PM
[2017-12-26] MEDS ORDERED: AZITHROMYCIN 500MG/NS 250 ML 250 ML IV SCH (22:30)
[2017-12-26] MEDS ORDERED: TRAMADOL HCL 50 MG TAB PO PRN (22:30)
[2017-12-26] MEDS ORDERED: CEFTRIAXONE SOD 1 GM VIAL IV SCH (23:00)
[2017-12-26] MEDS: ALBUTEROL/IPRATROPIUM 3 ML NEB NEB SCH (23:00)
[2017-12-27] MEDS: METHYLPREDNISOLONE SOD SUCC 40 MG/ML VIAL IV SCH ×2 (00:20→06:45)
[2017-12-27] MEDS: ALBUTEROL/IPRATROPIUM 3 ML NEB NEB SCH ×2 (03:35→08:00)
[2017-12-27 05:30] LABS: BASOPHILS # (AUTO) 0.1 (0.0-0.1); BASOPHILS % 0.8 % (0.0-1.0); HEMATOCRIT 53.5 % (38.2-49.6); HEMOGLOBIN 16.5 g/dL (14.0-18.0); LYMPHOCYTES # (AUTO) 0.4 (1.0-3.2); LYMPHOCYTES % 6.4 % (18.0-39.1); MEAN CORPUSCULAR HEMOGLOBIN 30.1 pg (28-32); MEAN CORPUSCULAR HGB CONC 30.8 g/dL (31-35); MEAN CORPUSCULAR VOLUME 97.6 fL (81-99); MONOCYTES # (AUTO) 0.1 (0.2-0.8); MONOCYTES % 1.7 % (4.4-11.3); NEUTROPHILS # (AUTO) 5.8 (2.1-6.9); NEUTROPHILS % 90.6 % (38.7-80.0); PLATELET COUNT 145 x10e3/uL (140-360); RED BLOOD COUNT 5.48 x10e6/uL (4.3-5.7); RED CELL DISTRIBUTION WIDTH 14.6 % (11.7-14.4)
[2017-12-27 05:52] LABS: ANION GAP 13.8 mmol/L (8-16); BLOOD UREA NITROGEN 13 mg/dL (7-26); BUN/CREATININE RATIO 15 (6-25); CALCIUM 9.1 mg/dL (8.4-10.2); CARBON DIOXIDE 36 mmol/L (22-29); CHLORIDE 99 mmol/L (98-107); CREATINE KINASE 57 IU/L (30-200); CREATININE, SERUM 0.88 mg/dL (0.72-1.25); EST GLOMERULAR FILTRATION RATE > 60 ML/MIN (60-); GLUCOSE 146 mg/dL (74-118); SODIUM 144 mmol/L (136-145)
[2017-12-27] MEDS ORDERED: CARBINOXAMINE MALEATE 4 MG PO SCH (06:00)
[2017-12-27 06:05] LABS: POTASSIUM 4.8 mmol/L (3.5-5.1)
--- NOTE | 2017-12-27 06:40 | Diagnostic Imaging Report ---
EXAM: CHEST SINGLE (PORTABLE), AP 1 view INDICATION: COPD COMPARISON: AP view of the chest December 26, 2017 FINDINGS: LINES/TUBES: None LUNGS: No consolidations or edema. PLEURA: No effusions or pneumothorax. HEART AND MEDIASTINUM: Stable BONES AND SOFT TISSUES: No acute findings. IMPRESSION: No interval change Signed by: Dr. Elodia Alcala M.D. on 12/27/2017 6:36 AM
[2017-12-27] MEDS ORDERED: BUDESONIDE/FORMOTEROL FUMARATE 80/4.5MCG 6.9 GM INH AEROSOL IH SCH (07:00)
[2017-12-27] MEDS: CARBINOXAMINE MALEATE 4 MG PO SCH ×2 (08:40→14:00)
[2017-12-27] MEDS ORDERED: FUROSEMIDE 40 MG TAB PO SCH (09:00)
[2017-12-27] MEDS ORDERED: RISPERIDONE 0.5 MG TAB PO SCH (09:00)
[2017-12-27] MEDS ORDERED: ALBUTEROL SULFATE HFA 8GM INHALATION AEROSOL INH PRN (09:00)
[2017-12-27] MEDS ORDERED: VALSARTAN 160 MG TAB PO SCH (09:00)
[2017-12-27] MEDS ORDERED: BISACODYL 5 MG TAB EC PO SCH (09:00)
[2017-12-27] MEDS ORDERED: SIMVASTATIN 40 MG TAB PO SCH (09:00)
[2017-12-27] MEDS ORDERED: CHOLECALCIFEROL 1,000 UNIT TAB PO SCH (09:00)
[2017-12-27] MEDS ORDERED: DESOXIMETASONE TOP SCH (09:00)
[2017-12-27] MEDS ORDERED: ASPIRIN 81 MG CHEW TAB PO SCH (09:00)
[2017-12-27] MEDS ORDERED: NICOTINE 21 MG/EA PATCH TOP SCH (09:00)
[2017-12-27] MEDS ORDERED: POTASSIUM 99 MG PO SCH (09:00)
[2017-12-27] MEDS ORDERED: METHYLPREDNISOLONE SOD SUCC 125 MG/2ML VIAL IV SCH (09:00)
[2017-12-27] MEDS ORDERED: METHYLPREDNISOLONE SOD SUCC 40 MG/ML VIAL IV SCH (09:00)
[2017-12-27] MEDS ORDERED: LISINOPRIL 10 MG TAB PO SCH (09:00)
[2017-12-27] MEDS ORDERED: TIOTROPIUM 18 MCG INH POWDER INH SCH (10:00)
[2017-12-27 10:30] VITALS: BP 181/83
[2017-12-27 10:42] VITALS: BP 112/73
[2017-12-27 13:54] LABS: CREATINE KINASE MB 2.2 ng/mL (0-5.0)
--- NOTE | 2017-12-27 19:35 | History and Physical ---
SHORTSTAY CHIEF COMPLAINT: Dyspnea. HISTORY OF PRESENT ILLNESS: The patient has a history of COPD and obstructive sleep apnea. He uses a CPAP at home. He also uses oxygen at home. He has Spiriva and Symbicort along with rescue medications and a nebulizer. The patient came to the hospital complaining of increased difficulty breathing. He noted some congestion and dyspnea. He denied any cough. After arriving to the ER he received some Solu-Medrol and bronchodilators. He improved with this. PAST SURGICAL HISTORY 1. Status post bilateral iliac stents in the legs in 2004. 2. Cardiac catheterization that was negative in 2012. 3. Prior thumb surgery. 4. Prior knee surgery. PAST MEDICAL HISTORY 1. Sleep apnea. 2. COPD. 3. Hypertension. FAMILY HISTORY: History of cancer in his grandparents. There is no history of heart disease. SOCIAL HISTORY: The patient quit smoking. He was a prior smoker. He is not an active drinker. REVIEW OF SYSTEMS: He does not have any fevers or headache. He did not complain of neck pain. There is no sore throat. He has no swollen glands. He did have difficulty breathing and some congestion. This has improved. He did not have any chest pain. He denies any abdominal pain. There is no nausea or vomiting. He did have some leg edema that has been worsening. He attributes this to not taking his Lasix and to his prior peripheral vascular disease. PHYSICAL EXAMINATION VITAL SIGNS: The patient is afebrile. The blood pressure is 112/73. Saturation is 98%. His pulse is 63. HEENT: Shows no facial swelling or erythema. The nasal mucosa is normal. The oropharynx is normal. LYMPHATIC: Shows no submandibular, cervical or supraclavicular adenopathy. CARDIAC: Regular rate and rhythm with a normal S1 and S2. There are no murmurs or rubs. LUNGS: Auscultation reveals rhonchus breath sounds bilaterally. Some wheezing. ABDOMEN: Soft, nontender. There is no rebound or guarding. EXTREMITIES: Shows some edema and skin changes suggestive of chronic lymphedema. NEUROLOGIC: Shows no focal abnormalities. LABORATORY DATA: Troponin I negative. The CMP is all within normal limits. The blood counts are within normal limits. RADIOGRAPHIC DATA: Chest x-ray shows no active disease. IMPRESSION 1. Chronic obstructive pulmonary disease with acute exacerbation. 2. Chronic lymphedema. 3. Peripheral vascular disease. 4. Sleep apnea. 5. Hypertension. PLAN 1. Patient will be discharged home. 2. He will continue his Symbicort along with Spiriva. 3. He will continue his Lasix. 1. Antibiotics at home. 2. Followup in [address] Chester. Job#: [id number] [place]
[2017-12-27] MEDS ORDERED: SERTRALINE HCL 100 MG TAB PO SCH (21:00)
[2017-12-27] MEDS ORDERED: TEMAZEPAM 15 MG CAP PO SCH (21:00)
[2017-12-27] MEDS ORDERED: TRAZODONE HCL 50 MG TAB PO SCH (21:00)
[2017-12-28] MEDS ORDERED: RISPERIDONE 1 MG TAB PO SCH (09:00)
== END 2017-12-27 15:41 | disposition home or self-care (01) | DRG 190 ==
LOC: ER 20:50 → ERHOLD 22:47 → MED/SURG2 12-27 09:50
PROVIDERS: ADMIT Internal Medicine Critical Care Medicine; ATTEND Internal Medicine Critical Care Medicine
DX: J44.1 Chronic obstructive pulmonary disease with (acute) exacerbation (principal); J96.21 Acute and chronic respiratory failure with hypoxia; Z68.42 Body mass index [BMI] 45.0-49.9, adult; I10 Essential (primary) hypertension; G47.33 Obstructive sleep apnea (adult) (pediatric); I73.9 Peripheral vascular disease, unspecified; I89.0 Lymphedema, not elsewhere classified; Z87.891 Personal history of nicotine dependence; E66.3 Overweight
CPT/HCPCS: 36415; 71045; 80048; 80053; 82550; 82553; 82948; 83880; 84484; 85025; 87040; 87071; 87205; 93005; 94640; 94660; 99284; J0456; J0696; J2920

== ENCOUNTER 2018-01-31 00:44 | Inpatient (IN) | payer OTHER ==
[~2018-01-31] VITALS: Ht 165.1 cm; Wt 128.6 kg
[2018-01-31] VITALS (55 sets, daily range): BP systolic 77–162; BP diastolic 57–98
[~2018-01-31 00:44] MED LIST changes: +CARBINOXAMINE MA4 MG PO; +DESOXIMETASONE15 G2 TOP; +LISINOPRIL10 MG PO; +RISPERIDONE0.5 MG PO; +SERTRALINE HCL100 MG PO; +SYMBICORT 80-10.2 GM INH; +TEMAZEPAM15 MG PO; +ULTRAM50 MG PO; +VENTOLIN HFA18 GM INH
[2018-01-31] MEDS ORDERED: ALBUTEROL SULF 0.083% NEB SOLN 3 ML NEB NEB STA ×2 (00:46→03:31)
[2018-01-31] MEDS ORDERED: METHYLPREDNISOLONE SOD SUCC 125 MG/2ML VIAL IV STA (00:46)
--- OUTSIDE RECORDS SUMMARY | 2018-01-31 00:48 | XMS REPORT | Continuity of Care Document ---
Author Author [facility] Organization [facility] Address [address] [place] [address] Phone Unavailable Care Team Providers Care Training Mgr Name Role Phone MAMIE NIXON DO PCP Insurance Providers Guarantor Arun Hough Address [address] [place] [address] Email [email or web address] Payer Aetna Pos Policy Number [id number] Subscriber's Name Arun Hough Relationship 18 Self / Same As Patient Group Number [id number] Group Name BARRY Effective Date 12 Advance Directives Directive Response Recorded Date/Time Does the patient have an advance directive? No 12/27/17 10:36am If yes, is advance directive on file with [facility]? No 12/27/17 10:36am If not on file with [facility] will patient provide a copy? No 12/27/17 10:36am Do you have a Directive to Physician? No 12/26/17 10:41pm Do you have a Medical Power of Bunghole Borer? No 04/09/18 10:41pm Do you have an out of hospital Do Not Resuscitate Order? No 12/26/17 10:41pm Do you have any special needs we should be aware of? No 12/26/17 10:41pm Do you have a support person here with you today? No 12/26/17 10:41pm Did patient receive Notice of Privacy Practices? Yes 12/26/17 10:41pm Did patient receive patient rights and responsibilities? Yes 12/26/17 10:41pm Problems Medical Problem Onset Date Status Bilateral leg pain Unknown Acute COPD (chronic obstructive pulmonary disease) Unknown Acute Polycythemia Unknown Acute Medications Current Home Medications Medication Dose Units Route Directions Days Qty Instructions Start Date Albuterol Albuterol Sulfate (Ventolin Hfa) 18 Gm Hfa.aer.ad 2 Inh Inhalation Every 4 Hours as needed for Shortness Of Breath Aspirin 81 Mg Tablet 81 Mg Oral Daily Bisacodyl (Dulcolax) 5 Mg Tablet.dr 5 Mg Oral 3 X A Week Budesonide/Formoterol Fumarate (Symbicort 80-4.5 Mcg Inhaler) 10.2 Gm Hfa.aer.ad 1 Each Inhalation Twice A Day Carbinoxamine Maleate 4 Mg Tablet 4 Mg Oral Every 8 Hours Carbinoxamine Maleate 4 Mg Tablet 4 Mg Oral Every 8 Hours Cholecalciferol (Vitamin D3) (Vitamin D-3) 2,000 Unit Capsule 2,000 Unit Oral Daily Desoximetasone 15 Gm Cream..g. 1 Applic Topically Daily Furosemide (Lasix) 80 Mg Tablet 40 Mg Oral Daily Lisinopril 10 Mg Tablet 10 Mg Oral Daily 30 Tab Potassium (Potassium-99) 99 Mg Tablet 99 Mg Oral Daily Prednisone 10 Mg Tab 10 Mg Oral Risperidone 0.5 Mg Tablet 1 Mg Oral Daily Sertraline Hcl 100 Mg Tablet 100 Mg Oral Bedtime Simvastatin 40 Mg Tablet 40 Mg Oral Daily Temazepam 15 Mg Capsule 15 Mg Oral Bedtime Tiotropium [place] (Spiriva) 18 Mcg Cap.w.dev 18 Mcg Inhalation As Needed Tramadol Hcl (Ultram) 50 Mg Tablet 50 Mg Oral Twice A Day as needed for Pain And Temperature Trazodone Hcl 50 Mg Tablet 100 Mg Oral Bedtime 30 Tab Valsartan (Diovan) 160 Mg Tab 325 Mg Oral Daily 60 Tab Past Home Medications Medication Directions Ordered Status 2 Angel , Discontinued Ascorbate Calcium (Vitamin C) 500 Mg Tablet, 500 Mg Oral Daily Discontinued Budesonide/Formoterol Fumarate (Symbicort 80-4.5 Mcg Inhaler) 6.9 Gm Hfa.aer.ad , 6.9 Gm Inhalation As Needed Discontinued Dicyclomine Hcl (Bentyl) 20 Mg Tablet, Discontinued Ezetimibe/Simvastatin (Vytorin 10-40 Mg Tablet) 1 Each Tablet, 1 Tab Oral Daily Discontinued Losartan/Hydrochlorothiazide (Losartan-Hctz 100-25 Mg Tab) 1 Each Tablet, 1 Each Oral Daily Discontinued Metronidazole (Flagyl) 500 Mg Tablet, Discontinued Valsartan/Hydrochlorothiazide (Diovan Hct 320-25 Mg Tablet) 1 Each Tablet, 1 Tab Oral Daily Discontinued Social History Social History Problem Response Recorded Date/Time Onset Date Status Hx Psychiatric Problems No 12/27/2017 10:36am Not Applicable Not Applicable Hx Eating Disorder Yes 12/27/2017 10:36am Not Applicable Not Applicable Hx Substance Use Disorder No 12/27/2017 10:36am Not Applicable Not Applicable Hx Depression Yes 12/27/2017 10:36am Not Applicable Not Applicable Hx Alcohol Use No 12/27/2017 10:36am Not Applicable Not Applicable Hx Substance Use Treatment No 12/27/2017 10:36am Not Applicable Not Applicable Hx Physical Abuse No 12/27/2017 10:36am Not Applicable Not Applicable Smoking Status Start Date Stop Date Current every day smoker Hospital Discharge Instructions No hospital discharge instruction information available. Plan of Care Discharge Date 12/27/17 3:41pm Disposition HOME, SELF-CARE Instructions/Education Provided COPD Prescriptions See Medication Section Referrals JULIAN DUNHAM MD (Pulmonary) Order Date: 1 Week Entered Date: 12/27/2017 2:24pm Address: [address] [place] [id number] Additional Instructions/Education Cardiac diet Functional Status Query Response Date Recorded Assistive Devices None December 27, 2017 10:42am Ambulation Ability Independent December 27, 2017 10:42am Toileting Ability Independent December 27, 2017 10:42am Allergies, Adverse Reactions, Alerts No known allergies. Immunizations No immunization information available. Vital Signs Acute Vital Signs Vital Response Date/Time Temperature (Fahrenheit) 98.0 degrees F (97.6 - 99.5) 12/27/2017 10:30am Pulse Pulse Rate (adult) 63 bpm (60 - 90) 12/27/2017 10:42am Respiratory Rate 20 bpm (12 - 24) 12/27/2017 10:42am Blood Pressure 112/73 mm Hg 12/27/2017 10:42am Height 5 ft 7 in 12/26/2017 9:02pm Weight 288 lb 12/26/2017 9:02pm Body Mass Index 45.1 kg/m^2 12/27/2017 10:36am Results Laboratory Results Test Name Result Units Flags Reference Collection Date/Time Result Date/ Time Comments Urine Color YELLOW YELLOW 07/22/2017 12:37am 07/22/2017 12:49am Urine Clarity CLEAR CLEAR 07/22/2017 12:37am 07/22/2017 12:49am Urine Specific Dawn 1.020 1.010-1.025 07/22/2017 12:37am 2016 12:49am Urine pH 5 5 - 7 07/22/2017 12:37am 07/22/2017 12:49am Urine Leukocyte Esterase TRACE H NEGATIVE 07/22/2017 12:37am 2016 12:49am Urine Nitrite NEGATIVE NEGATIVE 07/22/2017 12:37am 07/22/2017 12: 49am Urine Protein 2+ H NEGATIVE 07/22/2017 12:37am 07/22/2017 12:49am Urine Glucose (UA) NEGATIVE NEGATIVE 07/22/2017 12:37am 07/22/2017 12 :49am Urine Ketones NEGATIVE NEGATIVE 07/22/2017 12:37am 07/22/2017 12: 49am Urine Urobilinogen 1 mg/dL 0.2 - 1 07/22/2017 12:37am 07/22/2017 12: 49am Urine Bilirubin NEGATIVE NEGATIVE 07/22/2017 12:37am 07/22/2017 12: 49am Urine Blood 1+ H NEGATIVE 07/22/2017 12:37am 07/22/2017 12:49am Urine WBC 6-10 /HPF H 0-5 07/22/2017 12:37am 07/22/2017 12:59am Urine RBC 6-10 /HPF H 0-5 07/22/2017 12:37am 07/22/2017 12:59am Urine Bacteria RARE /HPF NONE 07/22/2017 12:37am 07/22/2017 12:59am Urine Epithelial Cells RARE /LPF NONE 07/22/2017 12:37am 07/22/2017 12: 59am Amylase Level 69 U/L 25-125 07/22/2017 12:37am 07/22/2017 1:08am Lipase 44 U/L 8-78 07/22/2017 12:37am 07/22/2017 1:08am Prothrombin Time 12.7 seconds 11.9-14.5 09/26/2017 11:20am 09/26/2017 12:09pm Prothromb Time International Ratio 0.91 09/26/2017 11:20am 2017 12:09pm Oral Anticoagulant Therapy INR Values: 1. Low Intensity Therapy 1.5 - 2.0 2. Moderate Intensity Therapy 2.0 - 3.0 3. High Intensity Therapy(1) 2.5 - 3.5 4. High Intensity Therapy(2) 3.0 - 4.0 5. Panic Value INR > 5.0 Activated Partial Thromboplast Time 30.7 seconds 23.8-35.5 09/26/2017 11 :20am 09/26/2017 12:09pm Influenza Virus Types A,B Antigen NEGATIVE NEGATIVE 09/27/2017 10: 50am 09/27/2017 11:35am Lactic Acid Level 8.4 MG/DL 4.5-19.8 09/26/2017 11:20am 09/26/2017 12: 23pm Free Thyroxine Index 2.0004 1.4-3.8 09/26/2017 11:20am 09/26/2017 7: 38pm Thyroxine (T4) 5.87 ug/dL 4.5-10.9 09/26/2017 11:20am 09/26/2017 7: 38pm Triiodothyronine (T3) Uptake 34.08 % 22.50-37.00 09/26/2017 11:20am 04/2018 7:38pm Thyroid Stimulating Hormone (TSH) 1.986 uIU/mL 0.350-4.940 09/26/2017 11 :20am 09/26/2017 7:38pm Arterial Blood pH 7.40 7.31-7.41 09/28/2017 2:12pm 09/28/2017 2:43pm Arterial Blood Partial Pressure CO2 66 mmHg *H 41-51 09/28/2017 2:12pm 2:43pm Results called/hand delivered to ER DOCTOR at 1442 on 09/28/17 by AYAH BARRIOS. RB OK. Arterial Blood Partial Pressure O2 65 mmHg L 80-105 09/28/2017 2:12pm 2:43pm Arterial Blood HCO3 41 mmol/L H 23-28 09/28/2017 2:12pm 09/28/2017 2: 43pm Arterial Blood Base Excess 16.0 mmol/L H -2 - 3 09/28/2017 2:12pm 2017 2:43pm Arterial Blood Oxygen Saturation 91.0 % L 95-98 09/28/2017 2:12pm 2017 2:43pm White Blood Count 6.37 x10e3/uL 4.8-10.8 12/27/2017 5:20am 12/27/2017 5 :30am Red Blood Count 5.48 x10e6/uL 4.3-5.7 12/27/2017 5:20am 12/27/2017 5: 30am Hemoglobin 16.5 g/dL 14.0-18.0 12/27/2017 5:2012/27/2017 5:30am Hematocrit 53.5 % H 38.2-49.6 12/27/2017 5:2012/27/2017 5:30am Mean Corpuscular Volume 97.6 fL 81-99 12/27/2017 5:20am 12/27/2017 5: 30am Mean Corpuscular Hemoglobin 30.1 pg 28-32 12/27/2017 5:2012/27/2017 5:30am Mean Corpuscular Hemoglobin Concent 30.8 g/dL L 31-35 12/27/2017 5:2012/27/2017 5:30am Red Cell Distribution Width 14.6 % H 11.7-14.4 12/27/2017 5:202017 5:30am Platelet Count 145 x10e3/uL 140-360 12/27/2017 5:20am 12/27/2017 5: 30am Neutrophils (%) (Auto) 90.6 % H 38.7-80.0 12/27/2017 5:20am 12/27/2017 5 :30am Lymphocytes (%) (Auto) 6.4 % L 18.0-39.1 12/27/2017 5:2012/27/2017 5: 30am Monocytes (%) (Auto) 1.7 % L 4.4-11.3 12/27/2017 5:12/27/2017 5: 30am Eosinophils (%) (Auto) 0.0 % 0.0-6.0 12/27/2017 5:12/27/2017 5: 30am Basophils (%) (Auto) 0.8 % 0.0-1.0 12/27/2017 5:12/27/2017 5:30am IM GRANULOCYTES % 0.5 % 0.0-1.0 12/27/2017 5:12/27/2017 5:30am Neutrophils # (Auto) 5.8 2.1-6.9 12/27/2017 5:12/27/2017 5:30am Lymphocytes # (Auto) 0.4 L 1.0-3.2 12/27/2017 5:12/27/2017 5: 30am Monocytes # (Auto) 0.1 L 0.2-0.8 12/27/2017 5:12/27/2017 5:30am Eosinophils # (Auto) 0.0 0.0-0.4 12/27/2017 5:12/27/2017 5:30am Basophils # (Auto) 0.1 0.0-0.1 12/27/2017 5:12/27/2017 5:30am Absolute Immature Granulocyte (auto 0.03 x10e3/uL 0-0.1 12/27/2017 5: 12/27/2017 5:30am Sodium Level 144 mmol/L 136-145 12/27/2017 5:12/27/2017 6:05am Potassium Level 4.8 mmol/L # 3.5-5.1 12/27/2017 5:12/27/2017 6:05am Results called to JANN MONTOYA RN at 0604 on 12/27/17 by Nicole Rdz. RB OK. Chloride Level 99 mmol/L 98-107 12/27/2017 5:2012/27/2017 6:05am Carbon Dioxide Level 36 mmol/L H 22-29 12/27/2017 5:12/27/2017 6: 05am Anion Gap 13.8 mmol/L 8-16 12/27/2017 5:2012/27/2017 6:05am Blood Urea Nitrogen 13 mg/dL 7-26 12/27/2017 5:20am 12/27/2017 6:05am Creatinine 0.88 mg/dL 0.72-1.25 12/27/2017 5:20am 12/27/2017 6:05am BUN/Creatinine Ratio 15 6-25 12/27/2017 5:20am 12/27/2017 6:05am Estimat Glomerular Filtration Rate > 60 ML/MIN 60- 12/27/2017 5:20 6:05am Ranges were taken from the National Kidney Disease Education Program and the National Kid[employer] Foundation literature. Reference ranges: 60 or greater: Normal 16-59 (for 3 consecutive months): Chronic kidney disease 15 or less: Kidney failure Glucose Level 146 mg/dL H 74-118 12/27/2017 5:20am 12/27/2017 6:05am Calcium Level 9.1 mg/dL 8.4-10.2 12/27/2017 5:2012/27/2017 6:05am Total Bilirubin 0.4 mg/dL 0.2-1.2 12/26/2017 9:07pm 12/26/2017 9:38pm Aspartate Amino Transf (AST/SGOT) 14 IU/L 5-34 12/26/2017 9:07pm 2017 9:38pm Alanine Aminotransferase (ALT/SGPT) 32 IU/L 0-55 12/26/2017 9:07pm 05/2018 9:38pm Total Protein 7.3 g/dL 6.5-8.1 12/26/2017 9:07pm 12/26/2017 9:38pm Albumin 3.1 g/dL L 3.5-5.0 12/26/2017 9:07pm 12/26/2017 9:38pm Globulin 4.2 g/dL H 2.3-3.5 12/26/2017 9:07pm 12/26/2017 9:38pm Albumin/Globulin Ratio 0.7 L 0.8-2.0 12/26/2017 9:07pm 12/26/2017 9: 38pm Alkaline Phosphatase 92 IU/L 40-150 12/26/2017 9:07pm 12/26/2017 9: 38pm B-Type Natriuretic Peptide 712.8 pg/mL H 0-100 12/26/2017 9:07pm 2017 9:43pm Creatine Kinase 58 IU/L 30-200 12/27/2017 1:00pm 12/27/2017 1:48pm Creatine Kinase MB 2.20 ng/mL 0-5.0 12/27/2017 1:00pm 12/27/2017 1: 55pm Troponin I 0.018 ng/mL 0-0.300 12/27/2017 1:00pm 12/27/2017 1:55pm Microbiology Results Procedure Source Organism/Result Collection Date/Time Result Date/Time Result Status Blood Culture Blood STAPHYLOCOCCUS INTERMEDIUS 09/26/2017 11:20am 2017 1:12pm Final Blood Culture Blood NO GROWTH AFTER 5 DAYS, FINAL REPORT 09/26/2017 11: 20am 10/01/2017 11:46am Final Procedures Procedure Status Date Provider(s) Computed tomography of abdomen and pelvis with contrast Active 07/22/17 MEME GABRIEL MD X-ray of chest, two views Active 10/02/17 JULIAN DUNHAM MD Encounters Encounter Location Arrival/Admit Date Discharge/Depart Date Attending Provider Discharged Inpatient [facility] 12/26/17 10:47pm 3:41pm JULIAN DUNHAM MD Discharged Inpatient [facility] 09/26/17 3:13pm 10/03/17 11:16am JULIAN DUNHAM MD Departed Emergency Room [facility] 07/22/17 12:18am 07/22 5:00am MEME GABRIEL MD
[2018-01-31] MEDS ORDERED: IPRATROPIUM BROMIDE 0.02% 2.5 ML NEB NEB ONE ×2 (01:00→03:45)
[2018-01-31 01:10] LABS: BASOPHILS # (AUTO) 0.1 (0.0-0.1); BASOPHILS % 0.8 % (0.0-1.0); EOSINOPHILS % 0.2 % (0.0-6.0); HEMATOCRIT 62.5 % (38.2-49.6); HEMOGLOBIN 18.8 g/dL (14.0-18.0); LYMPHOCYTES # (AUTO) 1.1 (1.0-3.2); LYMPHOCYTES % 8.8 % (18.0-39.1); MEAN CORPUSCULAR HEMOGLOBIN 30.3 pg (28-32); MEAN CORPUSCULAR HGB CONC 30.1 g/dL (31-35); MEAN CORPUSCULAR VOLUME 100.8 fL (81-99); MONOCYTES # (AUTO) 1.4 (0.2-0.8); MONOCYTES % 10.7 % (4.4-11.3); NEUTROPHILS # (AUTO) 9.9 (2.1-6.9); NEUTROPHILS % 79.3 % (38.7-80.0); PLATELET COUNT 187 x10e3/uL (140-360); RED CELL DISTRIBUTION WIDTH 15.6 % (11.7-14.4)
[2018-01-31 01:24] LABS: INR 1.08; PROTHROMBIN TIME 13.2 seconds (11.9-14.5)
[2018-01-31 01:25] LABS: PARTIAL THROMBOPLASTIN TIME 31.6 seconds (23.8-35.5)
[2018-01-31] MEDS ORDERED: NITROGLYCERIN 2% OINT 1 GM PKT TOP ONE ×2 (01:45→02:45)
--- NOTE | 2018-01-31 01:58 | Diagnostic Imaging Report ---
EXAMINATION: CHEST SINGLE (PORTABLE) INDICATION: COPD with cough, shortness of breath. COMPARISON: 12/27/2017 FINDINGS: TUBES and LINES: None. LUNGS: Lungs are not well inflated. There are bibasilar atelectasis. There is perihilar interstitial opacities, consistent with interstitial edema. PLEURA: No pleural effusion or pneumothorax. HEART AND MEDIASTINUM: Cardiac size is moderately enlarged. BONES AND SOFT TISSUES: No acute osseous lesion. Soft tissues are unremarkable. UPPER ABDOMEN: No free air under the diaphragm. IMPRESSION: Findings are compatible with cardiomegaly and developing pulmonary edema with central vascular congestion. Signed by: Dr. Carter Castañeda M.D. on 01/31/2018 1:55 AM
[2018-01-31 02:39] LABS: CREATINE KINASE MB < 1.00 ng/mL (0-4.3)
[2018-01-31] MEDS ORDERED: FUROSEMIDE INJ 10 MG/ML 4 ML VIAL IV ONE ×2 (02:45→06:00)
[2018-01-31 03:34] LABS: ALANINE AMINOTRANSFERASE 29 IU/L (0-55); ALBUMIN/GLOBULIN RATIO 0.9 (0.8-2.0); ALKALINE PHOSPHATASE 97 IU/L (40-150); ANION GAP 14.1 mmol/L (8-16); BLOOD UREA NITROGEN 13 mg/dL (7-26); BUN/CREATININE RATIO 16 (6-25); CALCIUM 8.2 mg/dL (8.4-10.2); CHLORIDE 94 mmol/L (98-107); CREATINE KINASE 52 IU/L (30-200); CREATININE, SERUM 0.83 mg/dL (0.72-1.25); EST GLOMERULAR FILTRATION RATE > 60 ML/MIN (60-); GLUCOSE 121 mg/dL (74-118); MAGNESIUM 1.8 MG/DL (1.3-2.1); POTASSIUM 4.1 mmol/L (3.5-5.1); SODIUM 145 mmol/L (136-145)
[2018-01-31 03:40] LABS: CARBON DIOXIDE 41 mmol/L (22-29)
[2018-01-31] MEDS ORDERED: LEVOFLOXACIN 500MG/D5W 100ML 100 ML IV SCH (03:45)
[2018-01-31 03:58] LABS: BILIRUBIN,URINE NEGATIVE (NEGATIVE); CLARITY,URINE CLEAR (CLEAR); COLOR,URINE YELLOW (YELLOW); KETONES,URINE NEGATIVE (NEGATIVE); LEUKOCYTE ESTERASE ,URINE NEGATIVE (NEGATIVE); NITRITE,URINE NEGATIVE (NEGATIVE); PROTEIN,URINE DIPSTICK 2+ (NEGATIVE); URINE UROBILINOGEN 0.2 mg/dL (0.2 - 1)
[2018-01-31 04:11] LABS: MUCUS,URINE FEW (RARE)
[2018-01-31 04:27] LABS: ABG PH 7.25 (7.31-7.41)
[2018-01-31 04:29] LABS: ABG HCO3 45 mmol/L (23-28); ABG PCO2 102 mmHg (41-51); ABG PO2 51 mmHg (80-105)
[2018-01-31 05:49] LABS: ABG PH 7.29 (7.31-7.41)
[2018-01-31 05:50] LABS: ABG PCO2 104 mmHg (41-51)
[2018-01-31 05:52] LABS: ABG PO2 83 mmHg (80-105)
[2018-01-31 05:54] LABS: ABG HCO3 49 mmol/L (23-28)
[2018-01-31] MEDS ORDERED: NITROGLYCERIN 2% OINT 1 GM PKT TOP SCH (06:00)
[2018-01-31] MEDS ORDERED: METHYLPREDNISOLONE SOD SUCC 125 MG/2ML VIAL IV SCH ×3 (06:00→21:00)
[2018-01-31] MEDS: ALBUTEROL SULF 0.083% NEB SOLN 3 ML NEB NEB SCH ×5 (07:00→23:45)
[2018-01-31] MEDS: IPRATROPIUM BROMIDE 0.02% 2.5 ML NEB NEB SCH ×5 (07:00→23:45)
[2018-01-31] MEDS ORDERED: ALBUTEROL/IPRATROPIUM 3 ML NEB NEB ONE (08:30)
[2018-01-31] MEDS ORDERED: FUROSEMIDE INJ 10 MG/ML 4 ML VIAL IV SCH (09:00)
[2018-01-31] MEDS: NITROGLYCERIN 2% OINT 1 GM PKT TOP SCH ×2 (09:00→12:00)
[2018-01-31 09:10] LABS: ABG PH 7.25 (7.31-7.41)
[2018-01-31 09:11] LABS: ABG HCO3 48 mmol/L (23-28); ABG PCO2 111 mmHg (41-51); ABG PO2 85 mmHg (80-105)
[2018-01-31 09:31] LABS: B-TYPE NATRIURETIC PEPTIDE2 1018.4 pg/mL (0-100); CREATINE KINASE MB 2.1 ng/mL (0-5.0)
--- NOTE | 2018-01-31 09:44 | Diagnostic Imaging Report ---
PROCEDURE: CHEST SINGLE (PORTABLE) COMPARISON: Patients [facility], DX, CHEST SINGLE (PORTABLE), 01/31/2018, 1:13. INDICATIONS: SOB, COPD, CHF FINDINGS: LUNGS: Worsening of pulmonary edema. PLEURA: Small left pleural effusion. HEART \T\ MEDIASTINUM: The heart remains enlarged. BONES \T\ SOFT TISSUES: No acute findings. CONCLUSION: Cardiomegaly with worsening pulmonary edema. Deo Davalos D.O. Dictated by: Deo Davalos D.O. on 01/31/2018 at 9:46 Electronically approved by: Deo Davalos D.O. on 01/31/2018 at 9:46
[2018-01-31] MEDS ORDERED: ETOMIDATE 2 MG/ML 10 ML INJ IV STA (10:14)
[2018-01-31] MEDS ORDERED: SUCCINYLCHOLINE 200 MG/10 ML SYR IV STA (10:14)
[2018-01-31] MEDS ORDERED: ROCURONIUM BROMIDE 10 MG/ML 5ML VIAL IV ONE (10:15)
[2018-01-31] MEDS ORDERED: PROPOFOL IV EMULSION 10MG/ML 100 ML IV ONE (10:15)
--- NOTE | 2018-01-31 12:24 | Diagnostic Imaging Report ---
PROCEDURE: A single AP view of the chest. COMPARISON: Patients [facility], DX, CHEST SINGLE (PORTABLE), 01/31/2018, 9:18. INDICATIONS: ET TUBE PLACEMENT FINDINGS: See impression. IMPRESSION: 1. interval placement of endotracheal tube, which has its distal tip projecting approximately 3.7 cm above the marilyn. An enteric tube is also noted, however, the distal tip is not visualized. 2. Otherwise, no significant interval change. Bradford Mattson M.D. Dictated by: Bradford Mattson M.D. on 01/31/2018 at 12:26 Electronically approved by: Bradford Mattson M.D. on 01/31/2018 at 12:26
--- NOTE | 2018-01-31 12:45 | Consultation ---
DATE OF CONSULTATION: January 31, 2018 CARDIOLOGY CONSULTATION ATTENDING PHYSICIAN: Sandeep Chester MD CLINICAL HISTORY: This is a 61-year-old white man with end-stage renal disease referred by Dr. Sandeep Chester for cardiovascular evaluation in the setting of progressive respiratory failure possibly requiring intubation and with intermittent atrial fibrillation with history of atrial flutter. This patient was seen by me in September at which time he had rapid atrial flutter with rate in the range of 150. He presented this time with intermittent atrial fibrillation and has converted to sinus rhythm. He is not, as far as I know, on anticoagulant. PAST MEDICAL HISTORY: Remarkable for hypertension, hyperlipidemia, peripheral vascular disease, status post bilateral iliac stents. He had a cardiac catheterization around 2014, said to be negative. It was done elsewhere. PAST SURGICAL HISTORY: Knee surgery, thumb surgery. FAMILY HISTORY: Grandfather had cancer. Grandmother also had cancer. PERSONAL / SOCIAL HISTORY: Continues to smoke. ALLERGIES: NONE KNOWN. MEDICATIONS: Previously included Symbicort, aspirin, potassium, Spiriva, Lasix, Ventolin, albuterol, trazodone, simvastatin, Diovan. REVIEW OF SYSTEMS: Noncontributory. PHYSICAL EXAMINATION GENERAL: He is wearing BiPAP and may be getting intubated. CARDIAC: Jugular veins were not well seen. S1 and S2 were irregular. There is no appreciable murmur. LUNGS: Diminished breath sounds with expiratory wheezing. ABDOMEN: Soft. Bowel sounds are present. EXTREMITIES: No cyanosis, clubbing or edema. IMPRESSION 1. Respiratory failure due to end-stage renal disease possibly requiring intubation. Currently on BiPAP. 2. History of atypical chest pain. Cannot exclude underlying coronary artery disease with history of peripheral vascular disease. 3. Peripheral vascular disease status post bilateral iliac stents. 4. Hypertension. 5. Obesity. 6. Hyperlipidemia. 7. Negative cardiac catheterization in 2012 per patient's report. 8. Ejection fraction in September was 50% by echocardiogram with enlarged left atrium. 9. Atrial fibrillation and atrial flutter, currently in sinus rhythm, probably exacerbated by underlying lung disease and lung medications. RECOMMENDATION: Treatment for COPD, consider amiodarone to control atrial fibrillation and atrial flutter. Thank you very much. Job#: [id number] cc:SANDEEP CHESTER M.D.
--- NOTE | 2018-01-31 12:52 | Diagnostic Imaging Report ---
PROCEDURE:X-RAY ABDOMEN - KUB COMPARISON:Patients [facility], DX, CHEST SINGLE (PORTABLE), 01/31/2018, 11:44. INDICATIONS:OG TUBE PLACEMENT FINDINGS: Limited KUB for purpose of OG tube placement. Location. Enteric tube projects in the mid lower mediastinum, with distal tip projecting at the level of the proximal fundus/GE junction. Obscuration of the left lateral costophrenic sulcus and partially left hemidiaphragm, likely representing left pleural effusion and associated atelectasis. CONCLUSION: Enteric tube has distal tip projecting at the proximal fundus near GE junction. Further advancement is recommended. Bradford Mattson M.D. Dictated by: Bradford Mattson M.D. on 01/31/2018 at 12:54 Electronically approved by: Bradford Mattson M.D. on 01/31/2018 at 12:54
[2018-01-31 13:23] LABS: ABG HCO3 52 mmol/L (23-28); ABG PCO2 82 mmHg (41-51); ABG PO2 247 mmHg (80-105)
[2018-01-31] MEDS ORDERED: PROPOFOL IV EMULSION 10 MG/ML 50 ML VIAL IV PRN (14:15)
[2018-01-31] MEDS ORDERED: ZEBETA10 MG PO (14:27)
[2018-01-31] MEDS ORDERED: CLONIDINE HCL0.2 MG PO (14:28)
[2018-01-31] MEDS ORDERED: VENTOLIN HFA18 GM IH (14:31)
[2018-01-31] MEDS ORDERED: TRIAMCINOLONE A15 G2 TOP (14:33)
[2018-01-31] MEDS ORDERED: LASIX20 MG PO (14:38)
[2018-01-31] MEDS ORDERED: POTASSIUM CHLO10 ME1 PO (14:39)
[2018-01-31] MEDS: PROPOFOL IV EMULSION 10MG/ML 100 ML IV PRN ×3 (14:47→20:57)
[2018-01-31] MEDS ORDERED: DOXYCYCLINE 100MG/NS 100ML 100 ML IV SCH (15:00)
[2018-01-31] MEDS ORDERED: ALBUTEROL SULFATE HFA 8GM INHALATION AEROSOL INH PRN (15:00)
--- NOTE | 2018-01-31 15:33 | History and Physical ---
HISTORY OF PRESENT ILLNESS: The patient is a 62-year-old man. He has a history of severe COPD, obstructive sleep apnea and obesity hypoventilation syndrome. He also has a history of chronic heart problems secondary to his lung disease. He has recurrent fluid retention in the lower extremities, as well as a history of atrial fibrillation that required treatment in the hospital in September. He came to the emergency department last night after worsening fluid retention over several days. He noted worsening dyspnea and leg swelling. He complained of some cough, but no fevers. He did not have chest pain. He had BiPAP overnight and some intermittent Lasix, but did not improve and was intubated this morning. PAST MEDICAL HISTORY 1. Hypertension. 2. Severe COPD. 3. Obstructive sleep apnea. 4. Obesity hypoventilation syndrome. 5. Chronic cor pulmonale. 6. Atrial fibrillation. PAST SURGICAL HISTORY 1. History of knee surgery. 2. History of colonoscopies. 3. History of iliac stents in 2004. FAMILY HISTORY: There is no significant family history. SOCIAL HISTORY: The patient is a chronic smoker. He is not an active drinker. ALLERGIES: THERE ARE NO KNOWN DRUG ALLERGIES. REVIEW OF SYSTEMS: The patient is not having any fevers. He does not have any headache. There is no neck pain. He has no throat pain or difficulty swallowing. He is not having any chest pain. He did note difficulty breathing and dyspnea. He noted cough. He notes abdominal swelling, as well as leg swelling. He does not complain of focal neurological problems. PHYSICAL EXAMINATION VITALS: The patient is afebrile. The vital signs are stable. HEENT: Shows no facial swelling or erythema. The nasal mucosa is normal. The oropharynx is normal. LYMPHATICS: Shows no submandibular, cervical or clavicular adenopathy. NECK: Shows no JVD or thyromegaly. There is no nuchal rigidity. CARDIAC: Reveals a regular rate and rhythm with a normal S1 and S2. There are no murmurs or rubs. LUNGS: Auscultation of the lungs reveals rhonchus breath sounds bilaterally. There is no wheezing. ABDOMEN: Distended. There is some fluid retention. EXTREMITIES: The patient has bilateral leg edema. It is 3-4+ and pitting. NEURO: There are no focal neurological abnormalities. LABORATORY DATA: The white blood cell count is 12.56, hemoglobin is 18.8, and the platelet count is 187,000. The BNP is 1018. The BUN to creatinine ratio is normal. The other electrolytes are within normal limits. The blood gas most recently is 7.4, 82, 247, and 52. RADIOGRAPHIC DATA: Chest x-ray shows findings consistent with congestive heart failure. IMPRESSION 1. Suneg-ex-belgmzh respiratory failure. 2. Hcroh-za-gnbauwn right-sided heart failure. 3. Sgjlv-ku-qmfoijg diastolic heart failure. 4. Obstructive sleep apnea. 5. Obesity hypoventilation syndrome. PLAN 1. The patient will be placed on an IV Lasix drip. 2. Repeat electrolytes and chest x-ray in the morning. 3. Solu-Medrol. 4. Try and wean the patient as tolerated. 5. DVT prophylaxis. 6. Cardiology evaluation. Job#: [id number] ADRI
[2018-01-31] MEDS ORDERED: FUROSEMIDE INJ 100 MG in SODIUM CHLORIDE 0.9% 100 ML 90 ML IV SCH (16:00)
[2018-01-31] MEDS: LISINOPRIL 10 MG TAB PO SCH (17:00)
[2018-01-31] MEDS: CLONIDINE HCL 0.2 MG TAB PO SCH (17:00)
[2018-01-31] MEDS: BISOPROLOL FUMARATE 10 MG TAB PO SCH (17:00)
[2018-01-31] MEDS ORDERED: VECURONIUM BROMIDE FOR INJ 20 MG VIAL ONE (17:53)
[2018-01-31] MEDS ORDERED: WATER STERILE 10 ML VIAL ONE (17:53)
[2018-01-31] MEDS ORDERED: ETOMIDATE 40 MG/ 20ML VIAL IV ONE (17:53)
[2018-01-31] MEDS: ENOXAPARIN SOD INJ 40 MG/0.4 ML SYR SC SCH (17:56)
--- NOTE | 2018-01-31 18:09 | Diagnostic Imaging Report ---
PROCEDURE: A single AP view of the chest. COMPARISON: Patients [facility], DX, CHEST SINGLE (PORTABLE), 01/31/2018, 11:44. INDICATIONS: PICC LINE PLACEMENT FINDINGS: See impression. IMPRESSION: 1. exam limited by soft tissue attenuation. 2. Interval placement of right-sided PIC line, which has its distal tip projecting at the cavoatrial junction. 3. Endotracheal tube is unchanged. Enteric tube is again noted, however, distal tip cannot be visualized. 4. Bilateral central venous congestion and interstitial opacities, likely reflecting edema. Left pleural effusion and likely associated atelectasis. Enlarged cardiac silhouette. Bradford Mattson M.D. Dictated by: Bradford Mattson M.D. on 01/31/2018 at 18:11 Electronically approved by: Bradford Mattson M.D. on 01/31/2018 at 18:11
[2018-01-31] MEDS: BUDESONIDE/FORMOTEROL FUMARATE 80/4.5MCG 6.9 GM INH AEROSOL IH SCH (19:00)
[2018-01-31 19:19] LABS: CREATINE KINASE MB 2.3 ng/mL (0-5.0)
[2018-01-31] MEDS: DOXYCYCLINE 100MG/NS 100ML 100 ML IV SCH (20:29)
[2018-01-31] MEDS: FUROSEMIDE INJ 100 MG in SODIUM CHLORIDE 0.9% 100 ML 90 ML IV SCH (20:30)
[2018-01-31] MEDS: TRAZODONE HCL 50 MG TAB PO SCH (20:31)
[2018-01-31] MEDS: SIMVASTATIN 40 MG TAB PO SCH (20:31)
[2018-02-01] VITALS (41 sets, daily range): BP systolic 83–154; BP diastolic 52–93
[2018-02-01] MEDS: PROPOFOL IV EMULSION 10MG/ML 100 ML IV PRN ×8 (00:16→20:40)
[2018-02-01] MEDS: IPRATROPIUM BROMIDE 0.02% 2.5 ML NEB NEB SCH ×6 (02:45→22:45)
[2018-02-01] MEDS: ALBUTEROL SULF 0.083% NEB SOLN 3 ML NEB NEB SCH ×6 (02:45→22:45)
--- NOTE | 2018-02-01 06:04 | Diagnostic Imaging Report ---
EXAMINATION: CHEST SINGLE (PORTABLE) INDICATION: Congestive heart failure COMPARISON: 01/31/2018 FINDINGS: TUBES and LINES: Endotracheal and NG tubes are stable in good position. Right PICC line is stable. LUNGS: Lungs are not well inflated. There are bibasilar atelectasis. There is perihilar interstitial opacities, consistent with interstitial edema. PLEURA: No pleural effusion or pneumothorax. HEART AND MEDIASTINUM: Cardiac size is moderately enlarged. BONES AND SOFT TISSUES: No acute osseous lesion. Soft tissues are unremarkable. UPPER ABDOMEN: No free air under the diaphragm. IMPRESSION: Findings are stable, compatible with cardiomegaly and developing pulmonary edema with central vascular congestion. Signed by: Dr. Carter Castañeda M.D. on 02/01/2018 6:01 AM
[2018-02-01 06:05] LABS: BASOPHILS % 0.2 % (0.0-1.0); HEMATOCRIT 55.6 % (38.2-49.6); HEMOGLOBIN 17.2 g/dL (14.0-18.0); LYMPHOCYTES # (AUTO) 0.4 (1.0-3.2); LYMPHOCYTES % 3.8 % (18.0-39.1); MEAN CORPUSCULAR HEMOGLOBIN 29.8 pg (28-32); MEAN CORPUSCULAR HGB CONC 30.9 g/dL (31-35); MEAN CORPUSCULAR VOLUME 96.4 fL (81-99); MONOCYTES # (AUTO) 0.9 (0.2-0.8); MONOCYTES % 8.1 % (4.4-11.3); NEUTROPHILS # (AUTO) 9.2 (2.1-6.9); NEUTROPHILS % 87.4 % (38.7-80.0); PLATELET COUNT 140 x10e3/uL (140-360); RED BLOOD COUNT 5.77 x10e6/uL (4.3-5.7); RED CELL DISTRIBUTION WIDTH 14.8 % (11.7-14.4)
[2018-02-01] MEDS: DOXYCYCLINE 100MG/NS 100ML 100 ML IV SCH ×2 (06:24→18:39)
[2018-02-01 06:33] LABS: ALANINE AMINOTRANSFERASE 20 IU/L (0-55); ALBUMIN 2.5 g/dL (3.5-5.0); ALBUMIN/GLOBULIN RATIO 0.8 (0.8-2.0); ALKALINE PHOSPHATASE 72 IU/L (40-150); ANION GAP 13.8 mmol/L (8-16); BLOOD UREA NITROGEN 19 mg/dL (7-26); BUN/CREATININE RATIO 24 (6-25); CALCIUM 8.4 mg/dL (8.4-10.2); CARBON DIOXIDE 40 mmol/L (22-29); CHLORIDE 93 mmol/L (98-107); EST GLOMERULAR FILTRATION RATE > 60 ML/MIN (60-); GLUCOSE 140 mg/dL (74-118); POTASSIUM 3.8 mmol/L (3.5-5.1); SODIUM 143 mmol/L (136-145)
[2018-02-01] MEDS: BUDESONIDE/FORMOTEROL FUMARATE 80/4.5MCG 6.9 GM INH AEROSOL IH SCH ×2 (06:35→19:00)
[2018-02-01] MEDS ORDERED: ACETAZOLAMIDE SODIUM 500 MG/VIAL IV ONE (08:15)
--- NOTE | 2018-02-01 08:50 | Diagnostic Imaging Report ---
PROCEDURE:ABDOMEN-1VIEW (KUB) TECHNIQUE:Supine AP abdomen INDICATION:NG tube placement COMPARISON:None. FINDINGS: See conclusion. CONCLUSION: 1. Nasogastric tube tip at the proximal gastric body. The distal side-port is in the distal esophagus and therefore enhancement 10-15 cm is recommended. 2. Nonobstructive bowel gas pattern. Dictated by: Tad Lewis M.D. on 02/01/2018 at 8:52 Electronically approved by: Tad Lewis M.D. on 02/01/2018 at 8:52
[2018-02-01] MEDS: LISINOPRIL 10 MG TAB PO SCH ×2 (09:00→18:39)
[2018-02-01] MEDS: CLONIDINE HCL 0.2 MG TAB PO SCH ×2 (09:00→17:00)
[2018-02-01] MEDS: BISOPROLOL FUMARATE 10 MG TAB PO SCH ×2 (09:00→17:00)
[2018-02-01] MEDS: VALSARTAN 160 MG TAB PO SCH (09:00)
[2018-02-01] MEDS: SERTRALINE HCL 100 MG TAB PO SCH (09:32)
[2018-02-01] MEDS: ASPIRIN 81 MG CHEW TAB PO SCH (10:16)
[2018-02-01] MEDS: METHYLPREDNISOLONE SOD SUCC 125 MG/2ML VIAL IV SCH ×2 (10:19→20:40)
[2018-02-01 11:06] LABS: ABG HCO3 44 mmol/L (23-28); ABG PCO2 61 mmHg (41-51); ABG PH 7.46 (7.31-7.41); ABG PO2 53 mmHg (80-105)
--- NOTE | 2018-02-01 12:27 | Cardiology Report ---
DATE OF STUDY: January 31, 2018 DOPPLER SCAN OF LOWER EXTREMITY VEINS The lower extremity veins were interrogated using the duplex scanning method. The veins were compressible. There was no definite deep venous thrombosis. CONCLUSIONS: No definite deep venous thrombosis seen involving the lower extremity veins bilaterally. Job#: [id number] cc:JULIAN DUNHAM M.D.
--- NOTE | 2018-02-01 15:35 | Diagnostic Imaging Report ---
PROCEDURE:X-RAY ABDOMEN - KUB COMPARISON:None. INDICATIONS:DOBHOFF TUBE PLACEMENT FINDINGS: There are no dilated loops of bowel to suggest obstruction. There are no masses or abnormal calcifications. There is no evidence of free air. No acute osseous abnormalities are present. Endotracheal tube tip is 4 cm above the marilyn. Dobbhoff tube tip is in the pylorus. Moderate left pleural effusion. CONCLUSION: Dobbhoff tip is in the pylorus. Dictated by: Nirav Downey M.D. on 02/01/2018 at 15:37 Electronically approved by: Nirav Downey M.D. on 02/01/2018 at 15:37
[2018-02-01] MEDS: FUROSEMIDE INJ 100 MG in SODIUM CHLORIDE 0.9% 100 ML 90 ML IV SCH (15:42)
--- NOTE | 2018-02-01 15:42 | Progress Note ---
DATE: PULMONARY CRITICAL CARE PROGRESS NOTE The patient started a Lasix drip yesterday and is negative about 1200 mL. He had respiratory alkalosis as a result of overhead ventilation. His ventilation was decreased and a repeat ABG is pending. He does have sinus rhythm with frequent PACs but is not in atrial fibrillation. He had an NG tube placed for feedings but the positioning was not good on the KUB. The nurses subsequently removed it and inserting a Dobbhoff. PHYSICAL EXAMINATION VITAL SIGNS: The patient is afebrile. The blood pressure is 103/80 and the heart rate is 97. HEENT: Shows no facial swelling or erythema. The nasal mucosa is normal. Patient is on pressure regulated volume control. CARDIAC: Reveals a regular rate and rhythm with irregular beats. The patient has decreased breath sounds at the bases. ABDOMEN: Soft and nontender. There is no rebound or guarding. There is some ascites. The patient has 2-3+ leg edema. NEUROLOGIC: Shows no focal abnormalities. LABORATORY DATA: White blood cell count is 10.5 and the hemoglobin is 17.2. The platelet count is 140. The SVP-al-wmizmhdfbh ratio is normal. Carbon dioxide is 40. The other electrolytes were within normal limits. The albumin is 2.5. The blood gas is 7.46 or 61 CO2 and an O2 of 53. The bicarbonate is 44. IMPRESSION 1. Icpyc-qa-nsccsyo respiratory failure. 2. Xenfc-hw-afifxaw right-sided heart failure. 3. Chronic obstructive pulmonary disease. 4. Obesity hypoventilation syndrome. PLAN 1. Patient will be continued on Lasix drip. 2. We will repeat the ABG at 7 pm. 3. Repeat spontaneous breathing trial in the morning. 4. Wean corticosteroids. 5. Continue doxycycline. 6. Monitor electrolytes, BUN, creatinine and blood sugar. 7. Enteral feedings. 8. DVT prophylaxis. Greater than 35 minutes in direct critical care time during 2 separate visits, one at 8 am and one at 3 pm. Case discussed with the family, nursing staff and Respiratory. Job#: [id number] SALVADOR
[2018-02-01 17:21] LABS: ABG PCO2 59 mmHg (41-51); ABG PH 7.45 (7.31-7.41); ABG PO2 60 mmHg (80-105)
[2018-02-01 17:22] LABS: ABG HCO3 41 mmol/L (23-28)
--- NOTE | 2018-02-01 18:02 | Diagnostic Imaging Report ---
PROCEDURE:US RETROPERITONEAL ( KIDNEY ). COMPARISON:CT abdomen and pelvis 03/29/2014 INDICATIONS:PROTEINURIA \T\ LOW ALBUMIN TECHNIQUE: Morales-scale and color sonographic images of the bilateral kidneys and bladder where obtained in transverse and longitudinal planes. FINDINGS: RIGHT KIDNEY: 12.0 x 6.5 x 6.6 cm, cortex 1.4 cm Cysts: None Solid masses: 2.6 x 2.7 x 2.6 cm hypoechoic area in the superior medial pole, exophytic Stones: None Hydronephrosis: None Echogenicity: Increased LEFT KIDNEY: 12.6 x 8.0 x 7.0 cm, cortex 1.9 cm Cysts: None Solid masses: None Stones: None Hydronephrosis: None Echogenicity: Increase Bladder: Pantoja catheter in place. Partially filled. 41 mL. Prostate: Not visualized. CONCLUSION: 1. 2.7 cm lesion in the superior medial pole of the right kidney. On previous CTs there were no discrete mass. There was however a 2.8 cm right adrenal nodule in the approximate location. 2. Slight increased echogenicity of the kidneys consistent medical renal disease. Dictated by: Nirav Downey M.D. on 02/01/2018 at 18:04 Electronically approved by: Nirav Downey M.D. on 02/01/2018 at 18:04
[2018-02-01] MEDS: ENOXAPARIN SOD INJ 40 MG/0.4 ML SYR SC SCH (18:39)
[2018-02-01] MEDS: TRAZODONE HCL 50 MG TAB PO SCH (20:40)
[2018-02-01] MEDS: SIMVASTATIN 40 MG TAB PO SCH (20:40)
[2018-02-02] VITALS (72 sets, daily range): BP systolic 92–160; BP diastolic 45–77
[2018-02-02] MEDS: IPRATROPIUM BROMIDE 0.02% 2.5 ML NEB NEB SCH ×6 (02:20→22:35)
[2018-02-02] MEDS: ALBUTEROL SULF 0.083% NEB SOLN 3 ML NEB NEB SCH ×6 (02:20→22:35)
[2018-02-02] MEDS: PROPOFOL IV EMULSION 10MG/ML 100 ML IV PRN ×4 (02:21→23:51)
--- NOTE | 2018-02-02 05:50 | Diagnostic Imaging Report ---
EXAMINATION: CHEST SINGLE (PORTABLE) INDICATION: Respiratory failure COMPARISON: 02/01/2018 FINDINGS: TUBES and LINES: Endotracheal and NG tubes are stable in good position. Right PICC line is stable. LUNGS: Lungs are not well inflated. There are bibasilar atelectasis. There is perihilar interstitial opacities, consistent with interstitial edema. PLEURA: Small left pleural effusion is suspected. HEART AND MEDIASTINUM: Cardiac size is moderately enlarged. BONES AND SOFT TISSUES: No acute osseous lesion. Soft tissues are unremarkable. UPPER ABDOMEN: No free air under the diaphragm. IMPRESSION: Findings are stable, compatible with cardiomegaly and developing pulmonary edema with central vascular congestion. Signed by: Dr. Carter Castañeda M.D. on 02/02/2018 5:47 AM
[2018-02-02 05:55] LABS: BASOPHILS % 0.3 % (0.0-1.0); HEMATOCRIT 56.7 % (38.2-49.6); HEMOGLOBIN 17.7 g/dL (14.0-18.0); LYMPHOCYTES # (AUTO) 0.5 (1.0-3.2); LYMPHOCYTES % 4.1 % (18.0-39.1); MEAN CORPUSCULAR HEMOGLOBIN 30.3 pg (28-32); MEAN CORPUSCULAR HGB CONC 31.2 g/dL (31-35); MEAN CORPUSCULAR VOLUME 97.1 fL (81-99); MONOCYTES # (AUTO) 1.1 (0.2-0.8); MONOCYTES % 9.8 % (4.4-11.3); NEUTROPHILS # (AUTO) 9.5 (2.1-6.9); NEUTROPHILS % 85.3 % (38.7-80.0); PLATELET COUNT 170 x10e3/uL (140-360); RED BLOOD COUNT 5.84 x10e6/uL (4.3-5.7); RED CELL DISTRIBUTION WIDTH 15.6 % (11.7-14.4)
[2018-02-02 06:31] LABS: ALANINE AMINOTRANSFERASE 16 IU/L (0-55); ALBUMIN 2.6 g/dL (3.5-5.0); ALBUMIN/GLOBULIN RATIO 0.7 (0.8-2.0); ALKALINE PHOSPHATASE 66 IU/L (40-150); ANION GAP 14.7 mmol/L (8-16); BLOOD UREA NITROGEN 21 mg/dL (7-26); BUN/CREATININE RATIO 23 (6-25); CALCIUM 8.7 mg/dL (8.4-10.2); CARBON DIOXIDE 34 mmol/L (22-29); CHLORIDE 100 mmol/L (98-107); CREATININE, SERUM 0.91 mg/dL (0.72-1.25); EST GLOMERULAR FILTRATION RATE > 60 ML/MIN (60-); GLUCOSE 136 mg/dL (74-118); POTASSIUM 3.7 mmol/L (3.5-5.1); SODIUM 145 mmol/L (136-145)
[2018-02-02] MEDS: DOXYCYCLINE 100MG/NS 100ML 100 ML IV SCH ×2 (06:34→18:20)
[2018-02-02] MEDS: BUDESONIDE/FORMOTEROL FUMARATE 80/4.5MCG 6.9 GM INH AEROSOL IH SCH ×2 (07:00→19:00)
[2018-02-02 07:57] LABS: LYMPHOCYTES % (MANUAL) 5 % (19-48); MONOCYTES % (MANUAL) 5 % (3.4-9.0); NEUTROPHILS % (MANUAL) 87 % (40-74)
[2018-02-02 07:58] LABS: ANISOCYTOSIS SLIGHT; PLATELET ESTIMATE ADEQUATE; PLATELET MORPHOLOGY COMMENT NORMAL; RBC MORPHOLOGY COMMENT NORMAL
[2018-02-02 08:59] LABS: ABG HCO3 38 mmol/L (23-28); ABG PCO2 59 mmHg (41-51); ABG PH 7.41 (7.31-7.41); ABG PO2 64 mmHg (80-105)
[2018-02-02] MEDS ORDERED: FUROSEMIDE INJ 10 MG/ML 4 ML VIAL IV SCH (09:00)
[2018-02-02] MEDS: BISOPROLOL FUMARATE 10 MG TAB PO SCH ×2 (09:00→17:00)
[2018-02-02] MEDS: CLONIDINE HCL 0.2 MG TAB PO SCH ×2 (09:00→17:00)
[2018-02-02] MEDS: VALSARTAN 160 MG TAB PO SCH (09:00)
[2018-02-02] MEDS: METHYLPREDNISOLONE SOD SUCC 125 MG/2ML VIAL IV SCH ×2 (09:22→21:59)
[2018-02-02] MEDS: SERTRALINE HCL 100 MG TAB PO SCH (11:18)
[2018-02-02] MEDS: ASPIRIN 81 MG CHEW TAB PO SCH (11:18)
[2018-02-02] MEDS: LISINOPRIL 10 MG TAB PO SCH ×2 (11:18→17:00)
[2018-02-02] MEDS ORDERED: ACETAZOLAMIDE SODIUM 500 MG/VIAL IV ONE (12:10)
[2018-02-02] MEDS: FUROSEMIDE INJ 100 MG in SODIUM CHLORIDE 0.9% 100 ML 90 ML IV SCH (12:17)
--- NOTE | 2018-02-02 12:51 | Progress Note ---
DATE: PULMONARY/CRITICAL CARE PROGRESS NOTE The patient had a Lasix drip again overnight and is now negative about 1600 mL. The patient was placed on CPAP of 5 and pressure support of 8 this morning. Initially, he did well with a respiratory rate of 20 to 25, but then started to have some tachypnea into the low 30s and some tachycardia. He was switched back to pure A/C. The patient did wake up when sedation was held. He does not have any fevers or chest pain. PHYSICAL EXAMINATION VITAL SIGNS: The patient is afebrile. The vital signs are stable. HEENT: No facial swelling or erythema. There is an oral 7.[address] The ventilator is now set at PRVC with a rate of 15 and tidal volume of 520. The FiO2 is set at 60%. CARDIAC: Regular rate and rhythm with normal S1 and S2. There are some ectopic beats. LUNGS: Auscultation of the lungs reveals clear breath sounds bilaterally. There is no wheezing. ABDOMEN: Soft and nontender. There is still some ascites. EXTREMITIES: There is 3 to 4+ leg edema. RADIOGRAPHIC DATA: Chest x-ray shows continued infiltrate suggestive of pulmonary edema. IMPRESSION 1. Ozcne-ye-yjilmna respiratory failure. 2. Bbhun-ac-nkyltjp right-sided heart failure. 3. Obesity-hypoventilation syndrome. 4. Hypertension. PLAN 1. We will continue diuresis with a Lasix drip. 2. Patient will receive Diamox. 3. Continue doxycycline and monitor cultures. 4. Continue enteral feedings. 5. DVT prophylaxis. 6. Repeat spontaneous breathing trial in the morning. I spent greater than 35 minutes in direct critical care time during 2 separate visits, one at 8:30 a.m. and one at noon. Case discussed with nursing and respiratory. Job#: [id number]
[2018-02-02] MEDS ORDERED: ALBUTEROL SULFATE HFA 8GM INHALATION AEROSOL INH PRN (15:45)
[2018-02-02] MEDS ORDERED: DESOXIMETASONE TOP SCH (17:00)
[2018-02-02] MEDS: BETAMETHASONE DIP AUG 0.05% CRM 15 GM TUBE TOP SCH (18:11)
[2018-02-02] MEDS: TRIAMCINOLONE ACET 0.1% CREAM 15 GM TUBE TOP SCH ×2 (18:11→22:22)
[2018-02-02] MEDS: ENOXAPARIN SOD INJ 40 MG/0.4 ML SYR SC SCH (18:20)
[2018-02-02] MEDS: SIMVASTATIN 40 MG TAB PO SCH (21:59)
[2018-02-02] MEDS: TRAZODONE HCL 50 MG TAB PO SCH (21:59)
[2018-02-03] VITALS (80 sets, daily range): BP systolic 97–146; BP diastolic 48–114
[2018-02-03] MEDS: ALBUTEROL SULF 0.083% NEB SOLN 3 ML NEB NEB SCH ×6 (02:34→23:10)
[2018-02-03] MEDS: IPRATROPIUM BROMIDE 0.02% 2.5 ML NEB NEB SCH ×6 (02:34→23:10)
[2018-02-03] MEDS: PROPOFOL IV EMULSION 10MG/ML 100 ML IV PRN ×4 (03:15→10:18)
[2018-02-03] MEDS: DOXYCYCLINE 100MG/NS 100ML 100 ML IV SCH ×2 (06:02→18:36)
[2018-02-03] MEDS: BUDESONIDE/FORMOTEROL FUMARATE 80/4.5MCG 6.9 GM INH AEROSOL IH SCH ×2 (06:02→19:00)
[2018-02-03 06:07] LABS: BASOPHILS % 0.2 % (0.0-1.0); HEMATOCRIT 58.8 % (38.2-49.6); HEMOGLOBIN 17.9 g/dL (14.0-18.0); LYMPHOCYTES # (AUTO) 0.4 (1.0-3.2); LYMPHOCYTES % 3.9 % (18.0-39.1); MEAN CORPUSCULAR HEMOGLOBIN 29.4 pg (28-32); MEAN CORPUSCULAR HGB CONC 30.4 g/dL (31-35); MEAN CORPUSCULAR VOLUME 96.7 fL (81-99); MONOCYTES # (AUTO) 0.7 (0.2-0.8); MONOCYTES % 7.3 % (4.4-11.3); NEUTROPHILS # (AUTO) 8.7 (2.1-6.9); NEUTROPHILS % 88.3 % (38.7-80.0); PLATELET COUNT 159 x10e3/uL (140-360); RED BLOOD COUNT 6.08 x10e6/uL (4.3-5.7); RED CELL DISTRIBUTION WIDTH 15.4 % (11.7-14.4)
--- NOTE | 2018-02-03 06:21 | Diagnostic Imaging Report ---
EXAMINATION: CHEST SINGLE (PORTABLE) INDICATION: Respiratory failure. COMPARISON: 02/02/2018 FINDINGS: TUBES and LINES: Endotracheal, Dobbhoff tube and right upper extremity PICC line are visualized in good position, stable LUNGS: Lungs are not well inflated. There are bibasilar atelectasis. There is perihilar interstitial opacities, consistent with interstitial edema. PLEURA: Left pleural effusion appears to be increased in volume. HEART AND MEDIASTINUM: Cardiac size is moderately enlarged. There are atherosclerotic calcifications within the aorta. BONES AND SOFT TISSUES: No acute osseous lesion. Soft tissues are unremarkable. UPPER ABDOMEN: No free air under the diaphragm. IMPRESSION: 1. Findings are compatible with worsening cardiogenic pulmonary edema. 2. Worsening small left pleural effusion. Signed by: Dr. Carter Castañeda M.D. on 02/03/2018 6:18 AM
[2018-02-03 06:40] LABS: ALANINE AMINOTRANSFERASE 17 IU/L (0-55); ALBUMIN 2.7 g/dL (3.5-5.0); ALBUMIN/GLOBULIN RATIO 0.7 (0.8-2.0); ALKALINE PHOSPHATASE 63 IU/L (40-150); BLOOD UREA NITROGEN 24 mg/dL (7-26); BUN/CREATININE RATIO 29 (6-25); CALCIUM 8.8 mg/dL (8.4-10.2); CARBON DIOXIDE 32 mmol/L (22-29); CHLORIDE 102 mmol/L (98-107); CREATININE, SERUM 0.82 mg/dL (0.72-1.25); EST GLOMERULAR FILTRATION RATE > 60 ML/MIN (60-); GLUCOSE 132 mg/dL (74-118); SODIUM 145 mmol/L (136-145)
[2018-02-03] MEDS: FUROSEMIDE INJ 100 MG in SODIUM CHLORIDE 0.9% 100 ML 90 ML IV SCH (08:15)
[2018-02-03 09:50] LABS: ABG PH 7.41 (7.31-7.41)
[2018-02-03 09:51] LABS: ABG HCO3 36 mmol/L (23-28); ABG PCO2 57 mmHg (41-51); ABG PO2 58 mmHg (80-105)
[2018-02-03] MEDS: METHYLPREDNISOLONE SOD SUCC 125 MG/2ML VIAL IV SCH ×2 (10:12→21:51)
[2018-02-03] MEDS: ASPIRIN 81 MG CHEW TAB PO SCH (10:13)
[2018-02-03] MEDS: CLONIDINE HCL 0.2 MG TAB PO SCH ×4 (10:13→18:44)
[2018-02-03] MEDS: VALSARTAN 160 MG TAB PO SCH (10:14)
[2018-02-03] MEDS: BISOPROLOL FUMARATE 10 MG TAB PO SCH ×3 (10:16→18:45)
[2018-02-03] MEDS: MUPIROCIN 2% OINT 22 GM TUBE TOP SCH (10:17)
[2018-02-03] MEDS: LISINOPRIL 10 MG TAB PO SCH ×4 (10:17→18:44)
[2018-02-03] MEDS: BETAMETHASONE DIP AUG 0.05% CRM 15 GM TUBE TOP SCH ×2 (10:17→18:36)
[2018-02-03] MEDS: TRIAMCINOLONE ACET 0.1% CREAM 15 GM TUBE TOP SCH ×3 (10:17→23:19)
[2018-02-03] MEDS: SERTRALINE HCL 100 MG TAB PO SCH (10:17)
[2018-02-03] MEDS: ENOXAPARIN SOD INJ 40 MG/0.4 ML SYR SC SCH (18:36)
[2018-02-03] MEDS: TRAZODONE HCL 50 MG TAB PO SCH (21:51)
[2018-02-03] MEDS: SIMVASTATIN 40 MG TAB PO SCH (21:51)
[2018-02-04] VITALS (87 sets, daily range): BP systolic 98–147; BP diastolic 50–82
[2018-02-04] MEDS: FUROSEMIDE INJ 100 MG in SODIUM CHLORIDE 0.9% 100 ML 90 ML IV SCH (01:59)
[2018-02-04] MEDS: IPRATROPIUM BROMIDE 0.02% 2.5 ML NEB NEB SCH ×7 (02:50→22:05)
[2018-02-04] MEDS: ALBUTEROL SULF 0.083% NEB SOLN 3 ML NEB NEB SCH ×7 (02:50→22:05)
[2018-02-04 05:09] LABS: BASOPHILS % 0.2 % (0.0-1.0); HEMOGLOBIN 17.7 g/dL (14.0-18.0); LYMPHOCYTES # (AUTO) 0.4 (1.0-3.2); MEAN CORPUSCULAR HEMOGLOBIN 29.9 pg (28-32); MEAN CORPUSCULAR VOLUME 99.8 fL (81-99); MONOCYTES # (AUTO) 0.7 (0.2-0.8); NEUTROPHILS # (AUTO) 8.2 (2.1-6.9); NEUTROPHILS % 88.4 % (38.7-80.0); PLATELET COUNT 149 x10e3/uL (140-360); RED BLOOD COUNT 5.91 x10e6/uL (4.3-5.7); RED CELL DISTRIBUTION WIDTH 15.3 % (11.7-14.4)
[2018-02-04 05:29] LABS: ALANINE AMINOTRANSFERASE 20 IU/L (0-55); ALBUMIN 2.6 g/dL (3.5-5.0); ALBUMIN/GLOBULIN RATIO 0.7 (0.8-2.0); ALKALINE PHOSPHATASE 58 IU/L (40-150); ANION GAP 12.1 mmol/L (8-16); BLOOD UREA NITROGEN 30 mg/dL (7-26); BUN/CREATININE RATIO 39 (6-25); CALCIUM 8.9 mg/dL (8.4-10.2); CARBON DIOXIDE 36 mmol/L (22-29); CHLORIDE 104 mmol/L (98-107); CREATININE, SERUM 0.77 mg/dL (0.72-1.25); EST GLOMERULAR FILTRATION RATE > 60 ML/MIN (60-); GLUCOSE 123 mg/dL (74-118); POTASSIUM 4.1 mmol/L (3.5-5.1); SODIUM 148 mmol/L (136-145)
[2018-02-04] MEDS: DOXYCYCLINE 100MG/NS 100ML 100 ML IV SCH ×2 (05:36→18:33)
--- NOTE | 2018-02-04 05:59 | Diagnostic Imaging Report ---
EXAMINATION: CHEST SINGLE (PORTABLE) INDICATION: Respiratory failure. COMPARISON: 02/03/2018 FINDINGS: TUBES and LINES: Endotracheal tube has been removed. Dobbhoff tube and right upper extremity PICC line are stable LUNGS: Lungs are not well inflated. There are bibasilar atelectasis. There is mild prominence of the central pulmonary vasculature, consistent with pulmonary venous congestion. Bilateral interlobular septi thickening has slightly improved when compared with prior examination PLEURA: Small left pleural effusion. HEART AND MEDIASTINUM: Cardiac size is mildly enlarged. There are atherosclerotic calcifications within the aorta. BONES AND SOFT TISSUES: No acute osseous lesion. Soft tissues are unremarkable. UPPER ABDOMEN: No free air under the diaphragm. IMPRESSION: Improving pulmonary edema with persistent congestion, most likely cardiogenic. Small left pleural effusion Signed by: Dr. Carter Castañeda M.D. on 02/04/2018 5:56 AM
[2018-02-04] MEDS: BUDESONIDE/FORMOTEROL FUMARATE 80/4.5MCG 6.9 GM INH AEROSOL IH SCH (07:30)
[2018-02-04] MEDS: TRIAMCINOLONE ACET 0.1% CREAM 15 GM TUBE TOP SCH ×2 (09:00→15:00)
[2018-02-04] MEDS: SERTRALINE HCL 100 MG TAB PO SCH (09:00)
[2018-02-04] MEDS: METHYLPREDNISOLONE SOD SUCC 125 MG/2ML VIAL IV SCH ×2 (09:00→21:22)
[2018-02-04] MEDS: VALSARTAN 160 MG TAB PO SCH (09:00)
[2018-02-04] MEDS: BETAMETHASONE DIP AUG 0.05% CRM 15 GM TUBE TOP SCH ×2 (09:00→17:00)
[2018-02-04] MEDS: MUPIROCIN 2% OINT 22 GM TUBE TOP SCH (09:00)
[2018-02-04] MEDS: BISOPROLOL FUMARATE 10 MG TAB PO SCH (09:00)
[2018-02-04] MEDS: ASPIRIN 81 MG CHEW TAB PO SCH (09:00)
[2018-02-04 14:09] LABS: ABG PCO2 72 mmHg (41-51); ABG PH 7.34 (7.31-7.41)
[2018-02-04 14:10] LABS: ABG HCO3 39 mmol/L (23-28); ABG PO2 59 mmHg (80-105)
[2018-02-04] MEDS: CLONIDINE HCL 0.2 MG TAB PO SCH (17:00)
[2018-02-04] MEDS: LISINOPRIL 10 MG TAB PO SCH (17:00)
[2018-02-04] MEDS: ENOXAPARIN SOD INJ 40 MG/0.4 ML SYR SC SCH (18:33)
[2018-02-04] MEDS: TRAZODONE HCL 50 MG TAB PO SCH (21:22)
[2018-02-04] MEDS: SIMVASTATIN 40 MG TAB PO SCH (21:22)
[2018-02-04] MEDS: FUROSEMIDE INJ 10 MG/ML 4 ML VIAL IV SCH (22:37)
[2018-02-05] VITALS (71 sets, daily range): BP systolic 87–161; BP diastolic 55–110
[2018-02-05] MEDS: IPRATROPIUM BROMIDE 0.02% 2.5 ML NEB NEB SCH ×6 (02:15→23:45)
[2018-02-05] MEDS: ALBUTEROL SULF 0.083% NEB SOLN 3 ML NEB NEB SCH ×6 (02:15→23:45)
[2018-02-05 05:09] LABS: BASOPHILS % 0.1 % (0.0-1.0); HEMATOCRIT 58.2 % (38.2-49.6); HEMOGLOBIN 17.6 g/dL (14.0-18.0); LYMPHOCYTES # (AUTO) 0.5 (1.0-3.2); LYMPHOCYTES % 4.6 % (18.0-39.1); MEAN CORPUSCULAR HEMOGLOBIN 29.8 pg (28-32); MEAN CORPUSCULAR HGB CONC 30.2 g/dL (31-35); MEAN CORPUSCULAR VOLUME 98.5 fL (81-99); MONOCYTES # (AUTO) 0.8 (0.2-0.8); MONOCYTES % 8.1 % (4.4-11.3); NEUTROPHILS # (AUTO) 8.4 (2.1-6.9); NEUTROPHILS % 86.9 % (38.7-80.0); PLATELET COUNT 141 x10e3/uL (140-360); RED BLOOD COUNT 5.91 x10e6/uL (4.3-5.7); RED CELL DISTRIBUTION WIDTH 14.4 % (11.7-14.4)
[2018-02-05] MEDS: TRIAMCINOLONE ACET 0.1% CREAM 15 GM TUBE TOP SCH ×4 (05:16→20:57)
[2018-02-05 05:25] LABS: ALANINE AMINOTRANSFERASE 28 IU/L (0-55); ALBUMIN 2.7 g/dL (3.5-5.0); ALBUMIN/GLOBULIN RATIO 0.7 (0.8-2.0); ALKALINE PHOSPHATASE 63 IU/L (40-150); BLOOD UREA NITROGEN 35 mg/dL (7-26); BUN/CREATININE RATIO 49 (6-25); CALCIUM 9.3 mg/dL (8.4-10.2); CARBON DIOXIDE 35 mmol/L (22-29); CHLORIDE 102 mmol/L (98-107); CREATININE, SERUM 0.72 mg/dL (0.72-1.25); EST GLOMERULAR FILTRATION RATE > 60 ML/MIN (60-); GLUCOSE 105 mg/dL (74-118); SODIUM 147 mmol/L (136-145)
[2018-02-05] MEDS: DOXYCYCLINE 100MG/NS 100ML 100 ML IV SCH ×2 (06:51→18:19)
--- NOTE | 2018-02-05 07:03 | Diagnostic Imaging Report ---
EXAMINATION: CHEST SINGLE (PORTABLE) INDICATION: CHF COMPARISON: 02/03/2018 FINDINGS: TUBES and LINES: Dobbhoff tube and right upper extremity PICC line are stable LUNGS: Lungs are not well inflated. There are bibasilar atelectasis. There is mild prominence of the central pulmonary vasculature, consistent with pulmonary venous congestion. PLEURA: Stable left pleural effusion. HEART AND MEDIASTINUM: Cardiac size is mildly enlarged. There are atherosclerotic calcifications within the aorta. BONES AND SOFT TISSUES: No acute osseous lesion. Soft tissues are unremarkable. UPPER ABDOMEN: No free air under the diaphragm. IMPRESSION: 1. Improving pulmonary edema with persistent congestion, most likely cardiogenic. 2. Stable left pleural effusion Signed by: Dr. Carter Castañeda M.D. on 02/05/2018 7:00 AM
[2018-02-05] MEDS: BUDESONIDE/FORMOTEROL FUMARATE 80/4.5MCG 6.9 GM INH AEROSOL IH SCH ×2 (07:25→23:45)
[2018-02-05] MEDS: METHYLPREDNISOLONE SOD SUCC 125 MG/2ML VIAL IV SCH ×2 (09:00→20:57)
[2018-02-05] MEDS: LISINOPRIL 10 MG TAB PO SCH ×2 (09:00→17:00)
[2018-02-05] MEDS: SERTRALINE HCL 100 MG TAB PO SCH (09:00)
[2018-02-05] MEDS: BETAMETHASONE DIP AUG 0.05% CRM 15 GM TUBE TOP SCH ×2 (09:00→17:00)
[2018-02-05] MEDS: FUROSEMIDE INJ 10 MG/ML 4 ML VIAL IV SCH ×2 (09:00→20:57)
[2018-02-05] MEDS: CLONIDINE HCL 0.2 MG TAB PO SCH ×2 (09:00→17:00)
[2018-02-05] MEDS: VALSARTAN 160 MG TAB PO SCH (09:00)
[2018-02-05] MEDS: BISOPROLOL FUMARATE 10 MG TAB PO SCH ×2 (09:00→17:00)
[2018-02-05] MEDS: ASPIRIN 81 MG CHEW TAB PO SCH (09:00)
[2018-02-05 10:21] LABS: ABG HCO3 37 mmol/L (23-28); ABG PCO2 62 mmHg (41-51); ABG PO2 63 mmHg (80-105)
[2018-02-05 10:22] LABS: ABG PH 7.39 (7.31-7.41)
[2018-02-05] MEDS: MUPIROCIN 2% OINT 22 GM TUBE TOP SCH (11:39)
[2018-02-05] MEDS: ENOXAPARIN SOD INJ 40 MG/0.4 ML SYR SC SCH (17:59)
[2018-02-05] MEDS: ACETAZOLAMIDE SODIUM 500 MG/VIAL IV NR ×2 (18:00→18:27)
[2018-02-05] MEDS: SIMVASTATIN 40 MG TAB PO SCH (20:57)
[2018-02-05] MEDS: TRAZODONE HCL 50 MG TAB PO SCH (20:57)
[2018-02-05] MEDS ORDERED: BISACODYL 10 MG SUPP PR ONE (23:30)
[2018-02-06] VITALS (25 sets, daily range): BP systolic 121–163; BP diastolic 61–83
[2018-02-06] MEDS: IPRATROPIUM BROMIDE 0.02% 2.5 ML NEB NEB SCH ×6 (03:45→23:45)
[2018-02-06] MEDS: ALBUTEROL SULF 0.083% NEB SOLN 3 ML NEB NEB SCH ×4 (03:45→14:50)
[2018-02-06 05:55] LABS: TOTAL PROTEIN 24HR, URINE 562.5 mg/24hr (50-100)
[2018-02-06] MEDS: DOXYCYCLINE 100MG/NS 100ML 100 ML IV SCH ×2 (06:07→18:35)
[2018-02-06 06:14] LABS: BASOPHILS % 0.1 % (0.0-1.0); HEMATOCRIT 56.6 % (38.2-49.6); HEMOGLOBIN 17.6 g/dL (14.0-18.0); LYMPHOCYTES # (AUTO) 0.3 (1.0-3.2); LYMPHOCYTES % 2.9 % (18.0-39.1); MEAN CORPUSCULAR HEMOGLOBIN 29.8 pg (28-32); MEAN CORPUSCULAR HGB CONC 31.1 g/dL (31-35); MEAN CORPUSCULAR VOLUME 95.9 fL (81-99); MONOCYTES # (AUTO) 0.5 (0.2-0.8); MONOCYTES % 5.4 % (4.4-11.3); NEUTROPHILS # (AUTO) 8.8 (2.1-6.9); NEUTROPHILS % 91.3 % (38.7-80.0); PLATELET COUNT 152 x10e3/uL (140-360); RED CELL DISTRIBUTION WIDTH 14.1 % (11.7-14.4)
[2018-02-06 06:34] LABS: ALANINE AMINOTRANSFERASE 28 IU/L (0-55); ALBUMIN 2.7 g/dL (3.5-5.0); ALBUMIN/GLOBULIN RATIO 0.8 (0.8-2.0); ALKALINE PHOSPHATASE 58 IU/L (40-150); ANION GAP 12.9 mmol/L (8-16); BLOOD UREA NITROGEN 38 mg/dL (7-26); BUN/CREATININE RATIO 52 (6-25); CARBON DIOXIDE 34 mmol/L (22-29); CHLORIDE 104 mmol/L (98-107); CREATININE, SERUM 0.73 mg/dL (0.72-1.25); EST GLOMERULAR FILTRATION RATE > 60 ML/MIN (60-); GLUCOSE 107 mg/dL (74-118); POTASSIUM 3.9 mmol/L (3.5-5.1); SODIUM 147 mmol/L (136-145)
--- NOTE | 2018-02-06 07:00 | Diagnostic Imaging Report ---
EXAMINATION: CHEST SINGLE (PORTABLE) INDICATION: CHF COMPARISON: 02/05/2018 FINDINGS: TUBES and LINES: Interval removal of Dobbhoff tube. Right upper extremity PICC line remains is stable. LUNGS: Lungs are not well inflated. There are bibasilar atelectasis. There is mild prominence of the central pulmonary vasculature, consistent with pulmonary venous congestion. PLEURA: Stable left pleural effusion. HEART AND MEDIASTINUM: Cardiac size is mildly enlarged. There are atherosclerotic calcifications within the aorta. BONES AND SOFT TISSUES: No acute osseous lesion. Soft tissues are unremarkable. UPPER ABDOMEN: No free air under the diaphragm. IMPRESSION: 1. Stable pulmonary edema with persistent congestion, most likely cardiogenic. 2. Stable left pleural effusion Signed by: Dr. Carter Castañeda M.D. on 02/06/2018 6:56 AM
[2018-02-06] MEDS: FUROSEMIDE INJ 10 MG/ML 4 ML VIAL IV SCH ×2 (09:00→21:07)
[2018-02-06] MEDS: METHYLPREDNISOLONE SOD SUCC 125 MG/2ML VIAL IV SCH ×2 (09:00→21:07)
[2018-02-06] MEDS: CLONIDINE HCL 0.2 MG TAB PO SCH ×2 (09:00→17:00)
[2018-02-06] MEDS: BUDESONIDE/FORMOTEROL FUMARATE 80/4.5MCG 6.9 GM INH AEROSOL IH SCH ×2 (11:41→18:45)
[2018-02-06] MEDS: BETAMETHASONE DIP AUG 0.05% CRM 15 GM TUBE TOP SCH (12:56)
[2018-02-06] MEDS: MUPIROCIN 2% OINT 22 GM TUBE TOP SCH (12:56)
[2018-02-06] MEDS: TRIAMCINOLONE ACET 0.1% CREAM 15 GM TUBE TOP SCH ×3 (12:56→21:07)
[2018-02-06] MEDS: VALSARTAN 160 MG TAB PO SCH (13:23)
[2018-02-06] MEDS: SERTRALINE HCL 100 MG TAB PO SCH (13:23)
[2018-02-06] MEDS: LISINOPRIL 10 MG TAB PO SCH ×2 (13:23→18:35)
[2018-02-06] MEDS: ASPIRIN 81 MG CHEW TAB PO SCH (13:33)
--- NOTE | 2018-02-06 15:43 | Diagnostic Imaging Report ---
PROCEDURE:US CHEST COMPARISON:Same day chest xray INDICATIONS:LT PLEURAL EFFUSION FINDINGS: CONCLUSION: Small complex appearing bilateral pleural effusions. Dictated by: Pipo Cline M.D. on 02/06/2018 at 15:45 Electronically approved by: Pipo Cline M.D. on 02/06/2018 at 15:45
--- NOTE | 2018-02-06 16:11 | Consultation ---
DATE OF CONSULTATION: February 06, 2018 PODIATRY CONSULTATION REASON FOR CONSULTATION: Pain associated to the bilateral feet with concomitant significant hypertrophy multiple nails bilateral feet. REASON FOR ADMISSION: Jznxl-af-jtlasyj respiratory failure. HISTORY OF PRESENT ILLNESS: Patient is a very pleasant 62-year-old male admitted secondary to the aforementioned diagnoses, also found to have significant dermatological issues associated to bilateral feet and thus I was asked to evaluate. PAST MEDICAL HISTORY: Hypertension, severe COPD, atrial fibrillation, morbid obesity. SURGICAL HISTORY: Knee surgeries, history of colonoscopies and iliac stenting. FAMILY HISTORY: Noncontributory. SOCIAL HISTORY: Chronic tobacco use. No alcohol use. No illicit drug use. ALLERGIES: NEGATIVE. REVIEW OF SYSTEMS: Denies any nausea, vomiting, fever, chills. Does admit of shortness of breath although improved. Denies chest pain. Positive cough. Pain associated to bilateral lower extremities with edema associated to the same pain and multiple hypertrophic nails. PHYSICAL EXAMINATION VITAL SIGNS: Temperature 97.8, pulse was 58, blood pressure was 140/80, respiratory rate is 22 and sats are 96. GENERAL: AO x3. NAD. HEENT: Normocephalic, atraumatic, anicteric. RESPIRATORY: At this point no distress. ABDOMEN: Distended, soft, nontender. PSYCHIATRIC: Normal affect. EXTREMITIES: Severe edema associated to bilateral extremities, +1 pitting with indeed significant dermaticological changes, raised skin borders, diffusely spread erythematous base, concomitant severe and hypertrophic dystrophy in the brachial system with onychomycotic changes although psoriatic nails cannot be excluded. ASSESSMENT 1. Severe dyshidrotic eczema, underlying psoriasis and underlying chronic tinea. 2. Severe hypertrophic dystrophy. Possible onychomycosis versus psoriatic nails. PLAN: At this point recommend management, recommend Lotrisone bilateral lower extremities and feet, concomitant Urea to the nails to soften. Ultimately will benefit greatly from nail biopsy to further aid in treatment. In the interim also hepatic function panel ordered. If within the normal limits, may benefit from Lamisil pending biopsy results to be done outpatient. I would like to thank Dr. Chester for allowing me to participate in the care of this patient. Job#: [id number] EV
[2018-02-06] MEDS: ENOXAPARIN SOD INJ 40 MG/0.4 ML SYR SC SCH (18:35)
[2018-02-06] MEDS: BETAMETHASONE/CLOTRIMAZOLE CR 15 GM TUBE TOP SCH (18:38)
[2018-02-06] MEDS: LEVALBUTEROL HCL SOLN NEBU 0.63 MG/3 ML NEB INH SCH ×2 (18:45→23:45)
[2018-02-06] MEDS: TRAZODONE HCL 50 MG TAB PO SCH (21:07)
[2018-02-06] MEDS: SIMVASTATIN 40 MG TAB PO SCH (21:07)
[2018-02-07] VITALS (26 sets, daily range): BP systolic 97–169; BP diastolic 50–112
[2018-02-07] MEDS: LEVALBUTEROL HCL SOLN NEBU 0.63 MG/3 ML NEB INH SCH ×6 (03:15→23:45)
[2018-02-07] MEDS: IPRATROPIUM BROMIDE 0.02% 2.5 ML NEB NEB SCH ×6 (03:15→23:45)
[2018-02-07 06:04] LABS: BASOPHILS % 0.1 % (0.0-1.0); HEMATOCRIT 57.1 % (38.2-49.6); HEMOGLOBIN 17.7 g/dL (14.0-18.0); LYMPHOCYTES # (AUTO) 0.6 (1.0-3.2); LYMPHOCYTES % 5.9 % (18.0-39.1); MEAN CORPUSCULAR HEMOGLOBIN 29.8 pg (28-32); MEAN CORPUSCULAR VOLUME 96.3 fL (81-99); MONOCYTES # (AUTO) 0.8 (0.2-0.8); MONOCYTES % 7.7 % (4.4-11.3); NEUTROPHILS # (AUTO) 8.5 (2.1-6.9); NEUTROPHILS % 85.9 % (38.7-80.0); PLATELET COUNT 148 x10e3/uL (140-360); RED BLOOD COUNT 5.93 x10e6/uL (4.3-5.7); RED CELL DISTRIBUTION WIDTH 14.2 % (11.7-14.4)
[2018-02-07 06:36] LABS: ALANINE AMINOTRANSFERASE 32 IU/L (0-55); ALBUMIN 2.6 g/dL (3.5-5.0); ALBUMIN/GLOBULIN RATIO 0.7 (0.8-2.0); ALKALINE PHOSPHATASE 52 IU/L (40-150); ANION GAP 12.6 mmol/L (8-16); BLOOD UREA NITROGEN 35 mg/dL (7-26); BUN/CREATININE RATIO 48 (6-25); CARBON DIOXIDE 34 mmol/L (22-29); CHLORIDE 103 mmol/L (98-107); CREATININE, SERUM 0.73 mg/dL (0.72-1.25); EST GLOMERULAR FILTRATION RATE > 60 ML/MIN (60-); GLUCOSE 157 mg/dL (74-118); POTASSIUM 3.6 mmol/L (3.5-5.1); SODIUM 146 mmol/L (136-145)
[2018-02-07] MEDS: DOXYCYCLINE 100MG/NS 100ML 100 ML IV SCH (06:57)
[2018-02-07] MEDS: BUDESONIDE/FORMOTEROL FUMARATE 80/4.5MCG 6.9 GM INH AEROSOL IH SCH ×2 (07:20→19:00)
[2018-02-07 07:38] LABS: RBC MORPHOLOGY COMMENT NORMAL
[2018-02-07 07:39] LABS: ANISOCYTOSIS SLIG; PLATELET ESTIMATE SLIGHTLY DECREASED; PLATELET MORPHOLOGY COMMENT FEW LARGE; POIKILOCYTOSIS SLIGHT
[2018-02-07] MEDS: FUROSEMIDE INJ 10 MG/ML 4 ML VIAL IV SCH ×2 (08:15→20:34)
[2018-02-07] MEDS: DILTIAZEM HCL 120 MG CAP CD PO SCH (08:15)
[2018-02-07] MEDS: CLONIDINE HCL 0.2 MG TAB PO SCH ×2 (08:17→17:10)
[2018-02-07] MEDS: LISINOPRIL 10 MG TAB PO SCH ×2 (08:18→17:10)
[2018-02-07] MEDS: VALSARTAN 160 MG TAB PO SCH (08:18)
[2018-02-07] MEDS: SERTRALINE HCL 100 MG TAB PO SCH (08:18)
[2018-02-07] MEDS: UREA 40% CRM TP SCH (09:00)
[2018-02-07] MEDS: METHYLPREDNISOLONE SOD SUCC 125 MG/2ML VIAL IV SCH ×2 (09:33→20:34)
[2018-02-07] MEDS: ASPIRIN 81 MG CHEW TAB PO SCH (09:33)
[2018-02-07] MEDS: BETAMETHASONE/CLOTRIMAZOLE CR 15 GM TUBE TOP SCH ×2 (13:45→17:31)
[2018-02-07] MEDS: TRIAMCINOLONE ACET 0.1% CREAM 15 GM TUBE TOP SCH ×3 (13:45→20:35)
[2018-02-07] MEDS: MUPIROCIN 2% OINT 22 GM TUBE TOP SCH (13:45)
[2018-02-07] MEDS: TRAZODONE HCL 50 MG TAB PO SCH (20:34)
[2018-02-07] MEDS: SIMVASTATIN 40 MG TAB PO SCH (20:35)
[2018-02-08] VITALS (25 sets, daily range): BP systolic 116–167; BP diastolic 62–112
[2018-02-08] MEDS: LEVALBUTEROL HCL SOLN NEBU 0.63 MG/3 ML NEB INH SCH ×6 (02:45→22:15)
[2018-02-08] MEDS: IPRATROPIUM BROMIDE 0.02% 2.5 ML NEB NEB SCH ×6 (02:45→22:15)
[2018-02-08 04:44] LABS: BASOPHILS % 0.1 % (0.0-1.0); HEMATOCRIT 57.5 % (38.2-49.6); HEMOGLOBIN 18.1 g/dL (14.0-18.0); LYMPHOCYTES # (AUTO) 0.4 (1.0-3.2); LYMPHOCYTES % 4.6 % (18.0-39.1); MEAN CORPUSCULAR HGB CONC 31.5 g/dL (31-35); MEAN CORPUSCULAR VOLUME 95.2 fL (81-99); MONOCYTES # (AUTO) 0.5 (0.2-0.8); NEUTROPHILS # (AUTO) 8.4 (2.1-6.9); NEUTROPHILS % 89.9 % (38.7-80.0); PLATELET COUNT 136 x10e3/uL (140-360); RED BLOOD COUNT 6.04 x10e6/uL (4.3-5.7)
[2018-02-08 05:05] LABS: ANION GAP 12.8 mmol/L (8-16); BLOOD UREA NITROGEN 31 mg/dL (7-26); BUN/CREATININE RATIO 41 (6-25); CALCIUM 8.9 mg/dL (8.4-10.2); CARBON DIOXIDE 32 mmol/L (22-29); CHLORIDE 103 mmol/L (98-107); CREATININE, SERUM 0.75 mg/dL (0.72-1.25); EST GLOMERULAR FILTRATION RATE > 60 ML/MIN (60-); GLUCOSE 187 mg/dL (74-118); POTASSIUM 3.8 mmol/L (3.5-5.1); SODIUM 144 mmol/L (136-145)
[2018-02-08 05:21] LABS: PLATELET ESTIMATE SLIGHTLY DECREASED; PLATELET MORPHOLOGY COMMENT NORMAL; RBC MORPHOLOGY COMMENT NORMAL
[2018-02-08] MEDS: BUDESONIDE/FORMOTEROL FUMARATE 80/4.5MCG 6.9 GM INH AEROSOL IH SCH ×2 (07:30→18:54)
[2018-02-08] MEDS: ASPIRIN 81 MG CHEW TAB PO SCH (09:32)
[2018-02-08] MEDS: FUROSEMIDE INJ 10 MG/ML 4 ML VIAL IV SCH ×2 (09:32→20:41)
[2018-02-08] MEDS: DILTIAZEM HCL 120 MG CAP CD PO SCH (09:36)
[2018-02-08] MEDS: CLONIDINE HCL 0.2 MG TAB PO SCH ×2 (09:37→17:13)
[2018-02-08] MEDS: MUPIROCIN 2% OINT 22 GM TUBE TOP SCH (09:38)
[2018-02-08] MEDS: BETAMETHASONE/CLOTRIMAZOLE CR 15 GM TUBE TOP SCH ×2 (09:38→17:03)
[2018-02-08] MEDS: LISINOPRIL 10 MG TAB PO SCH (09:38)
[2018-02-08] MEDS: VALSARTAN 160 MG TAB PO SCH (09:38)
[2018-02-08] MEDS: TRIAMCINOLONE ACET 0.1% CREAM 15 GM TUBE TOP SCH ×3 (09:38→20:43)
[2018-02-08] MEDS: SERTRALINE HCL 100 MG TAB PO SCH (09:38)
[2018-02-08] MEDS: UREA 40% CRM TP SCH (09:39)
[2018-02-08] MEDS: LISINOPRIL 20 MG TAB PO SCH (17:14)
[2018-02-08] MEDS: TRAZODONE HCL 50 MG TAB PO SCH (20:42)
[2018-02-08] MEDS: HYDROCORTISONE SOD SUCCINATE 100 MG VIAL IV SCH (20:42)
[2018-02-08] MEDS: SIMVASTATIN 40 MG TAB PO SCH (20:42)
[2018-02-08] MEDS: ZOLPIDEM TARTRATE 10 MG TAB PO PRN (20:43)
[2018-02-09] VITALS: BP 132/96
[2018-02-09] MEDS: IPRATROPIUM BROMIDE 0.02% 2.5 ML NEB NEB SCH ×6 (02:25→22:55)
[2018-02-09] MEDS: LEVALBUTEROL HCL SOLN NEBU 0.63 MG/3 ML NEB INH SCH ×6 (02:25→22:55)
[2018-02-09 04:00] VITALS: BP_SYST 147; BP_SYST 165; BP_DIAS 100; BP_DIAS 91
--- NOTE | 2018-02-09 06:52 | Diagnostic Imaging Report ---
EXAM: CHEST SINGLE (PORTABLE), AP 1 view INDICATION: Respiratory failure COMPARISON: AP view of the chest February 06, 2018 FINDINGS: LINES/TUBES: Stable right approach PICC. LUNGS: Bibasilar consolidation/atelectasis. Stable pulmonary edema. PLEURA: Possible small left pleural effusion. HEART AND MEDIASTINUM: Stable appearance BONES AND SOFT TISSUES: No acute findings. IMPRESSION: No significant interval change. Signed by: Dr. Elodia Alcala M.D. on 02/09/2018 6:48 AM
[2018-02-09 08:00] VITALS: BP 141/72
[2018-02-09] MEDS: BUDESONIDE/FORMOTEROL FUMARATE 80/4.5MCG 6.9 GM INH AEROSOL IH SCH ×2 (08:23→19:10)
[2018-02-09] MEDS: TRIAMCINOLONE ACET 0.1% CREAM 15 GM TUBE TOP SCH ×3 (09:00→20:47)
[2018-02-09] MEDS: CLONIDINE HCL 0.2 MG TAB PO SCH ×2 (09:00→17:14)
[2018-02-09] MEDS: FUROSEMIDE INJ 10 MG/ML 4 ML VIAL IV SCH ×2 (09:00→20:47)
[2018-02-09] MEDS: LISINOPRIL 20 MG TAB PO SCH ×2 (09:00→17:15)
[2018-02-09] MEDS: HYDROCORTISONE SOD SUCCINATE 100 MG VIAL IV SCH ×2 (09:00→20:47)
[2018-02-09] MEDS: BETAMETHASONE/CLOTRIMAZOLE CR 15 GM TUBE TOP SCH ×2 (09:00→17:14)
[2018-02-09] MEDS: ASPIRIN 81 MG CHEW TAB PO SCH (09:00)
[2018-02-09] MEDS: SERTRALINE HCL 100 MG TAB PO SCH (09:00)
[2018-02-09] MEDS: VALSARTAN 160 MG TAB PO SCH (09:00)
[2018-02-09] MEDS: UREA 40% CRM TP SCH (09:00)
[2018-02-09] MEDS: DILTIAZEM HCL 120 MG CAP CD PO SCH (09:00)
[2018-02-09] MEDS: MUPIROCIN 2% OINT 22 GM TUBE TOP SCH (09:00)
[2018-02-09 12:00] VITALS: BP 126/98
[2018-02-09 15:42] VITALS: BP 139/79
[2018-02-09 19:30] VITALS: BP 139/74
[2018-02-09] MEDS: TRAZODONE HCL 50 MG TAB PO SCH (20:47)
[2018-02-09] MEDS: SIMVASTATIN 40 MG TAB PO SCH (20:47)
[2018-02-09] MEDS: ZOLPIDEM TARTRATE 10 MG TAB PO PRN (22:38)
[2018-02-09] MEDS: HYDROCODONE/APAP 5MG-325MG TAB PO PRN (22:50)
[2018-02-10] VITALS (9 sets, daily range): BP systolic 106–136; BP diastolic 57–97
[2018-02-10] MEDS: LEVALBUTEROL HCL SOLN NEBU 0.63 MG/3 ML NEB INH SCH ×7 (03:00→23:02)
[2018-02-10] MEDS: IPRATROPIUM BROMIDE 0.02% 2.5 ML NEB NEB SCH ×6 (03:00→23:02)
[2018-02-10] MEDS ORDERED: FUROSEMIDE INJ 10 MG/ML 4 ML VIAL IV SCH (09:00)
[2018-02-10] MEDS: HYDROCORTISONE SOD SUCCINATE 100 MG VIAL IV SCH ×2 (10:18→20:19)
[2018-02-10] MEDS: ASPIRIN 81 MG CHEW TAB PO SCH (10:18)
[2018-02-10] MEDS: DILTIAZEM HCL 120 MG CAP CD PO SCH (10:19)
[2018-02-10] MEDS: SERTRALINE HCL 100 MG TAB PO SCH (10:19)
[2018-02-10] MEDS: VALSARTAN 160 MG TAB PO SCH (10:19)
[2018-02-10] MEDS: CLONIDINE HCL 0.2 MG TAB PO SCH ×2 (10:19→17:04)
[2018-02-10] MEDS: TRIAMCINOLONE ACET 0.1% CREAM 15 GM TUBE TOP SCH ×3 (10:19→20:19)
[2018-02-10] MEDS: LISINOPRIL 20 MG TAB PO SCH ×2 (10:19→17:04)
[2018-02-10] MEDS: UREA 40% CRM TP SCH (10:20)
[2018-02-10] MEDS: BETAMETHASONE/CLOTRIMAZOLE CR 15 GM TUBE TOP SCH ×2 (10:20→17:04)
[2018-02-10] MEDS: BUDESONIDE/FORMOTEROL FUMARATE 80/4.5MCG 6.9 GM INH AEROSOL IH SCH ×2 (11:07→19:30)
[2018-02-10] MEDS: HYDROCODONE/APAP 5MG-325MG TAB PO PRN ×2 (11:47→20:43)
[2018-02-10] MEDS: SIMVASTATIN 40 MG TAB PO SCH (20:19)
[2018-02-10] MEDS: TRAZODONE HCL 50 MG TAB PO SCH (20:19)
[2018-02-10] MEDS: ZOLPIDEM TARTRATE 10 MG TAB PO PRN (20:42)
[2018-02-11 00:33] VITALS: BP 151/85
[2018-02-11] MEDS: IPRATROPIUM BROMIDE 0.02% 2.5 ML NEB NEB SCH ×6 (02:18→22:55)
[2018-02-11] MEDS: LEVALBUTEROL HCL SOLN NEBU 0.63 MG/3 ML NEB INH SCH ×6 (02:18→22:55)
[2018-02-11 05:06] VITALS: BP 178/96
[2018-02-11 06:06] LABS: BASOPHILS % 0.3 % (0.0-1.0); EOSINOPHILS % 0.3 % (0.0-6.0); HEMATOCRIT 54.6 % (38.2-49.6); HEMOGLOBIN 17.4 g/dL (14.0-18.0); LYMPHOCYTES # (AUTO) 1.1 (1.0-3.2); LYMPHOCYTES % 10.3 % (18.0-39.1); MEAN CORPUSCULAR HEMOGLOBIN 30.2 pg (28-32); MEAN CORPUSCULAR HGB CONC 31.9 g/dL (31-35); MEAN CORPUSCULAR VOLUME 94.6 fL (81-99); MONOCYTES # (AUTO) 0.7 (0.2-0.8); MONOCYTES % 6.7 % (4.4-11.3); NEUTROPHILS # (AUTO) 8.7 (2.1-6.9); NEUTROPHILS % 81.8 % (38.7-80.0); PLATELET COUNT 141 x10e3/uL (140-360); RED BLOOD COUNT 5.77 x10e6/uL (4.3-5.7); RED CELL DISTRIBUTION WIDTH 13.9 % (11.7-14.4)
[2018-02-11 06:32] LABS: ALANINE AMINOTRANSFERASE 39 IU/L (0-55); ALBUMIN 2.7 g/dL (3.5-5.0); ALBUMIN/GLOBULIN RATIO 0.9 (0.8-2.0); ALKALINE PHOSPHATASE 51 IU/L (40-150); ANION GAP 10.3 mmol/L (8-16); BLOOD UREA NITROGEN 22 mg/dL (7-26); BUN/CREATININE RATIO 37 (6-25); CALCIUM 8.7 mg/dL (8.4-10.2); CARBON DIOXIDE 33 mmol/L (22-29); CHLORIDE 98 mmol/L (98-107); CREATININE, SERUM 0.59 mg/dL (0.72-1.25); EST GLOMERULAR FILTRATION RATE > 60 ML/MIN (60-); GLUCOSE 96 mg/dL (74-118); POTASSIUM 3.3 mmol/L (3.5-5.1); SODIUM 138 mmol/L (136-145)
[2018-02-11 07:30] VITALS: BP 162/81
[2018-02-11] MEDS: BUDESONIDE/FORMOTEROL FUMARATE 80/4.5MCG 6.9 GM INH AEROSOL IH SCH ×2 (07:30→19:00)
[2018-02-11] MEDS ORDERED: POTASSIUM CHLORIDE 20 MEQ TAB CR PO ONE (09:00)
[2018-02-11] MEDS: ASPIRIN 81 MG CHEW TAB PO SCH (09:10)
[2018-02-11] MEDS: CLONIDINE HCL 0.2 MG TAB PO SCH ×2 (09:11→16:33)
[2018-02-11] MEDS: UREA 40% CRM TP SCH (09:11)
[2018-02-11] MEDS: FUROSEMIDE 20 MG TAB PO SCH (09:11)
[2018-02-11] MEDS: VALSARTAN 160 MG TAB PO SCH (09:11)
[2018-02-11] MEDS: SERTRALINE HCL 100 MG TAB PO SCH (09:11)
[2018-02-11] MEDS: TRIAMCINOLONE ACET 0.1% CREAM 15 GM TUBE TOP SCH ×3 (09:11→21:30)
[2018-02-11] MEDS: BETAMETHASONE/CLOTRIMAZOLE CR 15 GM TUBE TOP SCH ×2 (09:11→16:33)
[2018-02-11] MEDS: DILTIAZEM HCL 120 MG CAP CD PO SCH (09:11)
[2018-02-11] MEDS: PREDNISONE 10 MG TAB PO SCH ×2 (09:11→16:33)
[2018-02-11] MEDS: LISINOPRIL 20 MG TAB PO SCH ×2 (09:11→16:33)
[2018-02-11 11:30] VITALS: BP 137/80
[2018-02-11 16:00] VITALS: BP 143/87
[2018-02-11] MEDS: HYDROCODONE/APAP 5MG-325MG TAB PO PRN ×2 (16:33→22:53)
[2018-02-11 20:16] VITALS: BP 145/68
[2018-02-11] MEDS: TRAZODONE HCL 50 MG TAB PO SCH (21:00)
[2018-02-11] MEDS: SIMVASTATIN 40 MG TAB PO SCH (21:30)
[2018-02-11] MEDS: ZOLPIDEM TARTRATE 10 MG TAB PO PRN (23:27)
[2018-02-12] VITALS (8 sets, daily range): BP systolic 129–167; BP diastolic 69–95
[2018-02-12] MEDS: IPRATROPIUM BROMIDE 0.02% 2.5 ML NEB NEB SCH ×6 (02:30→22:40)
[2018-02-12] MEDS: LEVALBUTEROL HCL SOLN NEBU 0.63 MG/3 ML NEB INH SCH ×7 (02:30→22:40)
[2018-02-12] MEDS: BUDESONIDE/FORMOTEROL FUMARATE 80/4.5MCG 6.9 GM INH AEROSOL IH SCH ×2 (08:00→20:30)
[2018-02-12 08:11] LABS: BASOPHILS % 0.4 % (0.0-1.0); EOSINOPHILS # (AUTO) 0.1 (0.0-0.4); EOSINOPHILS % 0.8 % (0.0-6.0); HEMATOCRIT 55.3 % (38.2-49.6); HEMOGLOBIN 17.3 g/dL (14.0-18.0); LYMPHOCYTES # (AUTO) 1.3 (1.0-3.2); LYMPHOCYTES % 13.8 % (18.0-39.1); MEAN CORPUSCULAR HEMOGLOBIN 30.3 pg (28-32); MEAN CORPUSCULAR HGB CONC 31.3 g/dL (31-35); MEAN CORPUSCULAR VOLUME 96.8 fL (81-99); MONOCYTES # (AUTO) 0.7 (0.2-0.8); MONOCYTES % 7.7 % (4.4-11.3); NEUTROPHILS # (AUTO) 7.3 (2.1-6.9); NEUTROPHILS % 76.4 % (38.7-80.0); PLATELET COUNT 140 x10e3/uL (140-360); RED BLOOD COUNT 5.71 x10e6/uL (4.3-5.7); RED CELL DISTRIBUTION WIDTH 13.6 % (11.7-14.4)
[2018-02-12] MEDS: DILTIAZEM HCL 180 MG CAP CD PO SCH (08:21)
[2018-02-12] MEDS: CLONIDINE HCL 0.2 MG TAB PO SCH ×2 (08:21→16:24)
[2018-02-12] MEDS: ASPIRIN 81 MG CHEW TAB PO SCH (08:21)
[2018-02-12] MEDS: LISINOPRIL 20 MG TAB PO SCH ×2 (08:22→16:24)
[2018-02-12] MEDS: FUROSEMIDE 20 MG TAB PO SCH (08:22)
[2018-02-12] MEDS: PREDNISONE 10 MG TAB PO SCH ×2 (08:22→16:24)
[2018-02-12] MEDS: VALSARTAN 160 MG TAB PO SCH (08:22)
[2018-02-12] MEDS: SERTRALINE HCL 100 MG TAB PO SCH (08:22)
[2018-02-12 08:34] LABS: ANION GAP 9.6 mmol/L (8-16); BLOOD UREA NITROGEN 18 mg/dL (7-26); BUN/CREATININE RATIO 31 (6-25); CALCIUM 8.6 mg/dL (8.4-10.2); CARBON DIOXIDE 33 mmol/L (22-29); CHLORIDE 102 mmol/L (98-107); CREATININE, SERUM 0.58 mg/dL (0.72-1.25); EST GLOMERULAR FILTRATION RATE > 60 ML/MIN (60-); GLUCOSE 76 mg/dL (74-118); POTASSIUM 3.6 mmol/L (3.5-5.1); SODIUM 141 mmol/L (136-145)
[2018-02-12] MEDS: BETAMETHASONE/CLOTRIMAZOLE CR 15 GM TUBE TOP SCH ×2 (09:00→16:11)
[2018-02-12] MEDS: UREA 40% CRM TP SCH (09:00)
[2018-02-12] MEDS: TRIAMCINOLONE ACET 0.1% CREAM 15 GM TUBE TOP SCH ×3 (09:00→21:55)
[2018-02-12] MEDS ORDERED: POTASSIUM CHLORIDE 20 MEQ TAB CR PO ONE (11:30)
[2018-02-12] MEDS: NICOTINE 14 MG/EA PATCH TOP SCH (16:33)
[2018-02-12] MEDS: TRAZODONE HCL 50 MG TAB PO SCH (21:00)
[2018-02-12] MEDS: SIMVASTATIN 40 MG TAB PO SCH (21:55)
[2018-02-12] MEDS ORDERED: HYDROCODONE/APAP 5MG-325MG TAB PO PRN (22:30)
[2018-02-13] VITALS: BP 157/71
[2018-02-13] MEDS: ZOLPIDEM TARTRATE 10 MG TAB PO PRN ×2 (00:52→23:59)
[2018-02-13 02:44] VITALS: BP 157/71
[2018-02-13] MEDS: LEVALBUTEROL HCL SOLN NEBU 0.63 MG/3 ML NEB INH SCH ×7 (03:00→23:32)
[2018-02-13] MEDS: IPRATROPIUM BROMIDE 0.02% 2.5 ML NEB NEB SCH ×6 (03:00→23:00)
[2018-02-13 04:00] VITALS: BP 173/86
[2018-02-13] MEDS: CLONIDINE HCL 0.2 MG TAB PO SCH ×4 (05:36→17:18)
[2018-02-13 07:00] VITALS: BP 108/84
[2018-02-13] MEDS: BUDESONIDE/FORMOTEROL FUMARATE 80/4.5MCG 6.9 GM INH AEROSOL IH SCH ×2 (07:40→19:10)
[2018-02-13] MEDS: ASPIRIN 81 MG CHEW TAB PO SCH (09:12)
[2018-02-13] MEDS: TRIAMCINOLONE ACET 0.1% CREAM 15 GM TUBE TOP SCH ×3 (09:13→21:34)
[2018-02-13] MEDS: FUROSEMIDE 20 MG TAB PO SCH (09:13)
[2018-02-13] MEDS: LISINOPRIL 20 MG TAB PO SCH ×2 (09:13→17:19)
[2018-02-13] MEDS: DILTIAZEM HCL 180 MG CAP CD PO SCH (09:13)
[2018-02-13] MEDS: PREDNISONE 10 MG TAB PO SCH (09:13)
[2018-02-13] MEDS: SERTRALINE HCL 100 MG TAB PO SCH (09:13)
[2018-02-13] MEDS: VALSARTAN 160 MG TAB PO SCH (09:13)
[2018-02-13] MEDS: UREA 40% CRM TP SCH (09:14)
[2018-02-13] MEDS: BETAMETHASONE/CLOTRIMAZOLE CR 15 GM TUBE TOP SCH (09:14)
[2018-02-13] MEDS: FLUCONAZOLE 100 MG TAB PO SCH (14:30)
[2018-02-13 15:32] VITALS: BP 144/77
[2018-02-13] MEDS: NICOTINE 14 MG/EA PATCH TOP SCH (17:19)
[2018-02-13 20:02] VITALS: BP 141/72
[2018-02-13] MEDS: TRAZODONE HCL 50 MG TAB PO SCH (21:00)
[2018-02-13] MEDS: FUROSEMIDE INJ 10 MG/ML 4 ML VIAL IV SCH (21:34)
[2018-02-13] MEDS: SIMVASTATIN 40 MG TAB PO SCH (21:34)
[2018-02-14] VITALS (7 sets, daily range): BP systolic 116–157; BP diastolic 70–87
[2018-02-14] MEDS: LEVALBUTEROL HCL SOLN NEBU 0.63 MG/3 ML NEB INH SCH ×6 (01:20→23:40)
[2018-02-14] MEDS: IPRATROPIUM BROMIDE 0.02% 2.5 ML NEB NEB SCH ×6 (02:48→23:40)
[2018-02-14] MEDS: FUROSEMIDE INJ 10 MG/ML 4 ML VIAL IV SCH ×2 (07:54→21:51)
[2018-02-14] MEDS: ASPIRIN 81 MG CHEW TAB PO SCH (07:54)
[2018-02-14] MEDS: FLUCONAZOLE 100 MG TAB PO SCH (07:54)
[2018-02-14] MEDS: PREDNISONE 10 MG TAB PO SCH (07:54)
[2018-02-14] MEDS: SERTRALINE HCL 100 MG TAB PO SCH (07:55)
[2018-02-14] MEDS: BUDESONIDE/FORMOTEROL FUMARATE 80/4.5MCG 6.9 GM INH AEROSOL IH SCH ×2 (07:56→19:35)
[2018-02-14] MEDS: VALSARTAN 160 MG TAB PO SCH (07:58)
[2018-02-14] MEDS: DILTIAZEM HCL 180 MG CAP CD PO SCH (07:58)
[2018-02-14] MEDS: CLONIDINE HCL 0.2 MG TAB PO SCH ×2 (07:58→17:31)
[2018-02-14] MEDS: LISINOPRIL 20 MG TAB PO SCH ×2 (07:59→17:31)
[2018-02-14] MEDS: UREA 40% CRM TP SCH (10:56)
[2018-02-14] MEDS: TRIAMCINOLONE ACET 0.1% CREAM 15 GM TUBE TOP SCH ×3 (10:56→21:51)
[2018-02-14] MEDS ORDERED: POTASSIUM CHLORIDE 20 MEQ TAB CR PO STA (12:44)
[2018-02-14] MEDS: NICOTINE 14 MG/EA PATCH TOP SCH (17:31)
[2018-02-14] MEDS ORDERED: HYDROCODONE/APAP 5MG-325MG TAB PO PRN (19:00)
[2018-02-14] MEDS ORDERED: HYDROCORTISONE 2.5% PR CRM 1 OZ TUBE PR PRN (19:15)
[2018-02-14 20:09] LABS: ALANINE AMINOTRANSFERASE 45 IU/L (0-55); ALBUMIN 2.8 g/dL (3.5-5.0); ALBUMIN/GLOBULIN RATIO 0.8 (0.8-2.0); ALKALINE PHOSPHATASE 59 IU/L (40-150); BLOOD UREA NITROGEN 21 mg/dL (7-26); BUN/CREATININE RATIO 25 (6-25); CARBON DIOXIDE 36 mmol/L (22-29); CHLORIDE 97 mmol/L (98-107); CREATININE, SERUM 0.83 mg/dL (0.72-1.25); EST GLOMERULAR FILTRATION RATE > 60 ML/MIN (60-); GLUCOSE 110 mg/dL (74-118); SODIUM 139 mmol/L (136-145)
[2018-02-14] MEDS: TRAZODONE HCL 50 MG TAB PO SCH (21:51)
[2018-02-14] MEDS: SIMVASTATIN 40 MG TAB PO SCH (21:51)
[2018-02-14] MEDS: ZOLPIDEM TARTRATE 10 MG TAB PO PRN (22:03)
[2018-02-15 01:05] VITALS: BP 124/67
[2018-02-15] MEDS: IPRATROPIUM BROMIDE 0.02% 2.5 ML NEB NEB SCH ×5 (02:45→20:30)
[2018-02-15] MEDS: LEVALBUTEROL HCL SOLN NEBU 0.63 MG/3 ML NEB INH SCH ×5 (02:45→20:30)
[2018-02-15 05:37] VITALS: BP 140/73
[2018-02-15] MEDS: BUDESONIDE/FORMOTEROL FUMARATE 80/4.5MCG 6.9 GM INH AEROSOL IH SCH ×2 (07:00→20:30)
[2018-02-15 08:00] VITALS: BP 138/74
[2018-02-15] MEDS: VALSARTAN 160 MG TAB PO SCH (09:00)
[2018-02-15] MEDS: UREA 40% CRM TP SCH (09:00)
[2018-02-15] MEDS: LISINOPRIL 20 MG TAB PO SCH ×2 (09:00→17:00)
[2018-02-15] MEDS: DILTIAZEM HCL 180 MG CAP CD PO SCH (09:00)
[2018-02-15] MEDS: PREDNISONE 10 MG TAB PO SCH (09:00)
[2018-02-15] MEDS: ASPIRIN 81 MG CHEW TAB PO SCH (09:00)
[2018-02-15] MEDS: CLONIDINE HCL 0.2 MG TAB PO SCH ×2 (09:00→17:00)
[2018-02-15] MEDS: TRIAMCINOLONE ACET 0.1% CREAM 15 GM TUBE TOP SCH ×3 (09:00→21:45)
[2018-02-15] MEDS: SERTRALINE HCL 100 MG TAB PO SCH (09:00)
[2018-02-15] MEDS: FLUCONAZOLE 100 MG TAB PO SCH (09:00)
[2018-02-15] MEDS: FUROSEMIDE INJ 10 MG/ML 4 ML VIAL IV SCH ×2 (09:00→20:16)
[2018-02-15 12:00] VITALS: BP 116/69
[2018-02-15 16:00] VITALS: BP 133/73
[2018-02-15] MEDS: NICOTINE 14 MG/EA PATCH TOP SCH (17:00)
[2018-02-15 20:00] VITALS: BP 125/59
[2018-02-15] MEDS: SIMVASTATIN 40 MG TAB PO SCH (20:16)
[2018-02-15] MEDS: TRAZODONE HCL 50 MG TAB PO SCH ×2 (20:16→21:00)
[2018-02-15] MEDS ORDERED: ZOLPIDEM TARTRATE 5 MG TAB PO PRN (21:00)
[2018-02-16] VITALS (11 sets, daily range): BP systolic 110–175; BP diastolic 63–94
[2018-02-16] MEDS: LEVALBUTEROL HCL SOLN NEBU 0.63 MG/3 ML NEB INH SCH ×7 (00:15→22:35)
[2018-02-16] MEDS: IPRATROPIUM BROMIDE 0.02% 2.5 ML NEB NEB SCH ×7 (00:15→22:35)
[2018-02-16 06:25] LABS: BASOPHILS # (AUTO) 0.1 (0.0-0.1); BASOPHILS % 0.4 % (0.0-1.0); EOSINOPHILS # (AUTO) 0.1 (0.0-0.4); EOSINOPHILS % 1.1 % (0.0-6.0); HEMATOCRIT 55.3 % (38.2-49.6); HEMOGLOBIN 17.7 g/dL (14.0-18.0); LYMPHOCYTES # (AUTO) 1.3 (1.0-3.2); LYMPHOCYTES % 11.2 % (18.0-39.1); MEAN CORPUSCULAR HEMOGLOBIN 30.2 pg (28-32); MEAN CORPUSCULAR VOLUME 94.2 fL (81-99); MONOCYTES % 8.8 % (4.4-11.3); NEUTROPHILS # (AUTO) 8.9 (2.1-6.9); NEUTROPHILS % 77.6 % (38.7-80.0); PLATELET COUNT 135 x10e3/uL (140-360); RED BLOOD COUNT 5.87 x10e6/uL (4.3-5.7); RED CELL DISTRIBUTION WIDTH 13.7 % (11.7-14.4)
[2018-02-16 06:46] LABS: ALANINE AMINOTRANSFERASE 44 IU/L (0-55); ALBUMIN 2.8 g/dL (3.5-5.0); ALBUMIN/GLOBULIN RATIO 0.8 (0.8-2.0); ALKALINE PHOSPHATASE 56 IU/L (40-150); ANION GAP 12.5 mmol/L (8-16); BLOOD UREA NITROGEN 21 mg/dL (7-26); BUN/CREATININE RATIO 30 (6-25); CALCIUM 8.9 mg/dL (8.4-10.2); CARBON DIOXIDE 33 mmol/L (22-29); CHLORIDE 100 mmol/L (98-107); CREATININE, SERUM 0.71 mg/dL (0.72-1.25); EST GLOMERULAR FILTRATION RATE > 60 ML/MIN (60-); GLUCOSE 107 mg/dL (74-118); POTASSIUM 3.5 mmol/L (3.5-5.1); SODIUM 142 mmol/L (136-145)
[2018-02-16] MEDS: BUDESONIDE/FORMOTEROL FUMARATE 80/4.5MCG 6.9 GM INH AEROSOL IH SCH ×2 (07:25→19:07)
[2018-02-16] MEDS: SERTRALINE HCL 100 MG TAB PO SCH (09:00)
[2018-02-16] MEDS: VALSARTAN 160 MG TAB PO SCH (09:00)
[2018-02-16] MEDS: FUROSEMIDE INJ 10 MG/ML 4 ML VIAL IV SCH (09:00)
[2018-02-16] MEDS: CLONIDINE HCL 0.2 MG TAB PO SCH ×2 (09:00→17:51)
[2018-02-16] MEDS: PREDNISONE 10 MG TAB PO SCH (09:00)
[2018-02-16] MEDS: ASPIRIN 81 MG CHEW TAB PO SCH (09:00)
[2018-02-16] MEDS: FLUCONAZOLE 100 MG TAB PO SCH (09:00)
[2018-02-16] MEDS: DILTIAZEM HCL 180 MG CAP CD PO SCH (09:00)
[2018-02-16] MEDS: LISINOPRIL 20 MG TAB PO SCH ×2 (09:00→17:52)
[2018-02-16 10:22] LABS: CREATININE,URINE RANDOM 55.54 mg/dL (63-166); TOTAL PROTEIN, URINE 27.5 mg/dL (1-14)
[2018-02-16] MEDS: TRIAMCINOLONE ACET 0.1% CREAM 15 GM TUBE TOP SCH ×3 (10:42→20:03)
[2018-02-16] MEDS: UREA 40% CRM TP SCH (10:42)
--- NOTE | 2018-02-16 11:56 | Consultation ---
DATE OF CONSULTATION: NEPHROLOGY CONSULTATION REASON FOR CONSULTATION: Concerns for proteinuria. HPI: This is a 62-year-old male with known COPD, obstructive sleep apnea, and obesity hyperventilation syndrome, also had underlying heart problems in the past, who comes in due to concerns of underlying lower extremity edema over the last several days and underlying orthopnea and dyspnea on exertion. Patient was seen and evaluated at bedside on the medical floor and discussed his overall nephrology history. He reports taking NSAIDs once every couple of months for chronic pain. He denies any kidney stones, hematuria, ifsg-tjs-uudlrki herbal supplement, or any family history of renal disease. He does report he does smoke and he has been smoker for several years now. Patient denies any foamy urine upon urination. There is no family history of renal disease or anyone on dialysis. Patient was seen and evaluated at bedside on the medical floor, currently doing well with no other issues. He is on nasal cannula chronically. REVIEW OF SYSTEMS: Pertinent positives: Dyspnea on exertion, orthopnea, lower extremity edema. Pertinent negatives: Denies any chest pain, palpitation, nausea, vomiting, diarrhea, dysuria, hematuria, frequency, urgency, lightheadedness, dizziness, abdominal pain, headache, or any other complaints. The rest of the 14-point review of systems have been reviewed with the patient and are negative. ALLERGIES: NO KNOWN DRUG ALLERGIES. HOME MEDICATIONS: Albuterol 18 g inhaler, aspirin 81 mg daily, vesperal 10 mg p.o. b.i.d., budesonide and formoterol 1 inhaled b.i.d., clonidine 0.2 mg p.o. b.i.d., furosemide 20 mg daily, lisinopril 20 mg twice daily, potassium supplements, prednisone 10 mg daily, risperidone 1 mg at bedtime, sertraline 100 mg daily, simvastatin 40 mg at bedtime, temazepam 15 mg p.o. at bedtime, trazodone 100 mg at night, valsartan 320 mg daily. PAST MEDICAL HISTORY: He has hypertension, COPD, obstructive sleep apnea, obesity hypoventilation syndrome, chronic cor pulmonale, atrial fibrillation. SURGICAL HISTORY: Knee surgery, colonoscopy, iliac stent in 2004. FAMILY HISTORY: Hypertension and diabetes. SOCIAL HISTORY: He is a chronic smoker. No drugs, no alcohol. VITAL SIGNS: Temperature is 98, pulse 105, respiratory rate is 14, blood pressure is 150/89, and pulse ox is 98%. He is on 3 L nasal cannula. LAB FINDINGS: Show white count of 11.5, hemoglobin 17, hematocrit 55, and platelets of 135. Coagulation is normal. Chemistries: Sodium 142, potassium 3.5, chloride 100, bicarb 33, anion gap of 12, BUN is 21, creatinine is 0.7, glucose is 107, calcium is 8.9. LFTs are normal. Albumin is 2.8. Total protein 6.1. Urinalysis shows 2+ protein. The urine random total protein is 15 mg, urine total volume 3.7 L and urine total protein 24 hours is 562 mg. MICROBIOLOGY: Blood culture is negative. Urine culture is negative. IMAGING STUDIES: He had a renal ultrasound that showed right kidney of 12 cm, left kidney of 12.6 cm. There is some mild medical renal disease. PHYSICAL EXAMINATION GENERAL: Not in acute distress. Alert, oriented x3, cooperative on exam. HEENT: Head is normocephalic, atraumatic. Eyes: Pupils are equal, round and reactive to light bilaterally. Extraocular movements are intact bilaterally. NECK: Supple. Good range of motion. THROAT: No evidence of any erythema or exudates in the posterior pharynx. Has poor dentition. PULMONARY: Clear to auscultation bilaterally. No wheezing, no rales, no rhonchi, or no crackles appreciated. CARDIOVASCULAR: Positive S1 and S2. No murmurs, rubs, or gallops appreciated. ABDOMEN: Soft, nondistended, and nontender to palpation. Bowel sounds present. MUSCULOSKELETAL: Strength is 5/5 throughout. No evidence of any musculoskeletal deficit on examination. No weakness appreciated. NEUROLOGICAL: Cranial nerves II through XII are grossly intact. No evidence of any neurological deficits on exam. SKIN: Intact. Warm to touch. Good capillary refill. PSYCHIATRIC: Normal affect and mood. EXTREMITIES: No edema. Good range of motion throughout. IMPRESSION 1. Proteinuria with normal creatinine. 2. Chronic obstructive pulmonary disease. 3. Morbidly obese. 4. Hypertension. PLAN: At this time, looking at his total urine protein in 24 hours, it is actually 562 mg, which is half a gram based on the results that were done. He also had a random total protein which is 15 mg, though his UA shows 2+ protein. He may have some mild proteinuria, likely due to his underlying longstanding hypertension and smoking history. At this time, I do not see 15 g that was specified. I will do as I will get a urine protein to creatinine ratio and microalbumin to creatinine ratio to get a feel for what his true proteinuria is. There are no rbc's seen in the UA to go for further GN workup. His renal ultrasound was performed and shows the evidence of 12 cm kidneys bilaterally, which was on the larger end, but the gentleman is a larger moses. If this patient has nephrotic range proteinuria, he could have multiple diagnoses. Of note, he could have FSGS versus membranous versus MPGN versus amyloid versus multiple myeloma, but at this time based on the results that I have, normal creatinine is less likely. At this time, we are going to get the urine protein to creatinine ratio, microalbumin to creatinine ratio, discussed with the nurse to call me. If they are elevated, we will get a more further workup. I also discuss with him in the event and even if he is leaving, he could just follow up with us and the full workup can be done as an outpatient. He verbalized understanding and agrees to plan of care. Information, address, and phone number will be given to the patient. Job#: [id number] DARIN
[2018-02-16] MEDS ORDERED: POTASSIUM CHLORIDE 20 MEQ TAB CR PO NR (16:00)
[2018-02-16] MEDS: FUROSEMIDE 40 MG TAB PO SCH (17:52)
[2018-02-16] MEDS: NICOTINE 14 MG/EA PATCH TOP SCH (17:52)
[2018-02-16] MEDS: SIMVASTATIN 40 MG TAB PO SCH (20:03)
[2018-02-16] MEDS: TRAZODONE HCL 50 MG TAB PO SCH (20:04)
[2018-02-17] MEDS: LEVALBUTEROL HCL SOLN NEBU 0.63 MG/3 ML NEB INH SCH ×4 (02:48→14:56)
[2018-02-17] MEDS: IPRATROPIUM BROMIDE 0.02% 2.5 ML NEB NEB SCH ×4 (02:48→14:56)
[2018-02-17 05:05] VITALS: BP 129/92
[2018-02-17] MEDS: FUROSEMIDE 40 MG TAB PO SCH (06:13)
[2018-02-17 07:00] VITALS: BP 159/81
[2018-02-17] MEDS: BUDESONIDE/FORMOTEROL FUMARATE 80/4.5MCG 6.9 GM INH AEROSOL IH SCH (07:00)
[2018-02-17] MEDS ORDERED: POTASSIUM CHLORIDE 20 MEQ TAB CR PO NR (08:00)
[2018-02-17] MEDS ORDERED: ACETAZOLAMIDE SODIUM 500 MG/VIAL IV NR (08:00)
[2018-02-17] MEDS: ASPIRIN 81 MG CHEW TAB PO SCH (08:47)
[2018-02-17] MEDS: DILTIAZEM HCL 180 MG CAP CD PO SCH (08:48)
[2018-02-17] MEDS: PREDNISONE 10 MG TAB PO SCH (08:48)
[2018-02-17] MEDS: SERTRALINE HCL 100 MG TAB PO SCH (08:48)
[2018-02-17] MEDS: CLONIDINE HCL 0.2 MG TAB PO SCH (08:48)
[2018-02-17 12:00] VITALS: BP 152/88
[2018-02-17] MEDS: VALSARTAN 160 MG TAB PO SCH (12:19)
[2018-02-17] MEDS: TRIAMCINOLONE ACET 0.1% CREAM 15 GM TUBE TOP SCH ×2 (12:19→15:00)
[2018-02-17] MEDS: LISINOPRIL 20 MG TAB PO SCH (12:19)
[2018-02-17] MEDS: UREA 40% CRM TP SCH (12:19)
[2018-02-17 16:00] VITALS: BP 144/79
[2018-02-18] MEDS ORDERED: DILTIAZEM HCL 120 MG CAP CD PO SCH (09:00)
== END 2018-02-17 16:12 | DRG 208 ==
LOC: ER 00:44 → ERHOLD 04:44 → EDBEDREQSVC 05:03 → ICU 16:32 → IMCU 02-09 01:15 → MED/SURG2 02-14 20:26 → IMCU 02-15 23:42
PROVIDERS: ADMIT Internal Medicine Critical Care Medicine; ATTEND Internal Medicine Critical Care Medicine
PROC: 0BH18EZ Insertion of Endotracheal Airway into Trachea, Via Natural or Artificial Opening Endoscopic (ICD-10-PCS; principal; 2018-01-31)
PROC: 5A1945Z Respiratory Ventilation, 24-96 Consecutive Hours (ICD-10-PCS; 2018-01-31)
PROC: 02HV33Z Insertion of Infusion Device into Superior Vena Cava, Percutaneous Approach (ICD-10-PCS; 2018-01-31)
DX: J96.21 Acute and chronic respiratory failure with hypoxia (principal); I50.33 Acute on chronic diastolic (congestive) heart failure; I13.0 Hypertensive heart and chronic kidney disease with heart failure and stage 1 through stage 4 chronic kidney disease, or unspecified chronic kidney disease; E66.2 Morbid (severe) obesity with alveolar hypoventilation; Z68.42 Body mass index [BMI] 45.0-49.9, adult; J44.1 Chronic obstructive pulmonary disease with (acute) exacerbation; I48.92 Unspecified atrial flutter; E87.3 Alkalosis; I13.2 Hypertensive heart and chronic kidney disease with heart failure and with stage 5 chronic kidney disease, or end stage renal disease; J96.22 Acute and chronic respiratory failure with hypercapnia; L40.8 Other psoriasis; E78.5 Hyperlipidemia, unspecified; Z95.820 Peripheral vascular angioplasty status with implants and grafts; I48.91 Unspecified atrial fibrillation; Z79.01 Long term (current) use of anticoagulants; Z99.2 Dependence on renal dialysis; G47.33 Obstructive sleep apnea (adult) (pediatric); I50.813 Acute on chronic right heart failure; B35.1 Tinea unguium; R80.8 Other proteinuria; N18.9 Chronic kidney disease, unspecified; F17.210 Nicotine dependence, cigarettes, uncomplicated; L30.1 Dyshidrosis [pompholyx]
CPT/HCPCS: 31500; 36415; 36569; 36600; 71045; 74018; 76604; 76770; 80048; 80053; 81001; 81050; 82044; 82550; 82553; 82570; 82805; 82948; 83605; 83735; 83880; 84156; 84484; 85025; 85610; 85730; 87040; 87086; 93005; 93970; 94002; 94003; 94640; 94660; 99285; J1650; J1720; J1940; J1956; J2930

== ENCOUNTER 2018-05-11 23:40 | Inpatient (IN) | payer OTHER ==
[~2018-05-11] VITALS: Ht 165.1 cm; Wt 122.1 kg
[~2018-05-11 23:40] MED LIST changes: +CLONIDINE HCL0.2 MG PO; +LASIX20 MG PO; +POTASSIUM CHLO10 ME1 PO; +TRIAMCINOLONE A15 G2 TOP; +VENTOLIN HFA18 GM IH; +ZEBETA10 MG PO
[2018-05-11] MEDS ORDERED: ALBUTEROL SULF 0.083% NEB SOLN 3 ML NEB NEB STA (23:57)
[2018-05-12] MEDS ORDERED: IPRATROPIUM BROMIDE 0.02% 2.5 ML NEB NEB ONE
[2018-05-12] MEDS ORDERED: IPRATROPIUM BROMIDE 0.02% 2.5 ML NEB ONE (00:06)
[2018-05-12] MEDS ORDERED: ALBUTEROL SULF 0.083% NEB SOLN 3 ML NEB ONE (00:06)
[2018-05-12 00:15] LABS: BASOPHILS # (AUTO) 0.1 (0.0-0.1); BASOPHILS % 0.7 % (0.0-1.0); EOSINOPHILS % 0.2 % (0.0-6.0); HEMATOCRIT 59.2 % (38.2-49.6); HEMOGLOBIN 17.8 g/dL (14.0-18.0); LYMPHOCYTES # (AUTO) 1.5 (1.0-3.2); LYMPHOCYTES % 15.1 % (18.0-39.1); MEAN CORPUSCULAR HEMOGLOBIN 31.3 pg (28-32); MEAN CORPUSCULAR HGB CONC 30.1 g/dL (31-35); MONOCYTES % 9.9 % (4.4-11.3); NEUTROPHILS # (AUTO) 7.3 (2.1-6.9); NEUTROPHILS % 73.5 % (38.7-80.0); PLATELET COUNT 152 x10e3/uL (140-360); RED BLOOD COUNT 5.69 x10e6/uL (4.3-5.7)
[2018-05-12] MEDS ORDERED: PREDNISONE10 MG PO (00:25)
[2018-05-12] MEDS ORDERED: STOOL SOFTENER100 MG PO (00:25)
[2018-05-12] MEDS ORDERED: RISPERIDONE1 MG PO (00:25)
[2018-05-12] MEDS ORDERED: ZOLPIDEM TARTRAT5 MG PO (00:25)
[2018-05-12] MEDS ORDERED: LASIX40 MG PO (00:25)
[2018-05-12] MEDS ORDERED: SYMBICORT 16010.2 GM INH (00:25)
[2018-05-12] MEDS ORDERED: LISINOPRIL10 MG PO (00:25)
[2018-05-12 00:41] LABS: ALANINE AMINOTRANSFERASE 43 IU/L (0-55); ALBUMIN/GLOBULIN RATIO 0.7 (0.8-2.0); ALKALINE PHOSPHATASE 101 IU/L (40-150); ANION GAP 14.2 mmol/L (8-16); BLOOD UREA NITROGEN 13 mg/dL (7-26); BUN/CREATININE RATIO 18 (6-25); CALCIUM 9.3 mg/dL (8.4-10.2); CARBON DIOXIDE 39 mmol/L (22-29); CHLORIDE 96 mmol/L (98-107); CREATINE KINASE 39 IU/L (30-200); CREATININE, SERUM 0.72 mg/dL (0.72-1.25); EST GLOMERULAR FILTRATION RATE > 60 ML/MIN (60-); GLUCOSE 163 mg/dL (74-118); POTASSIUM 4.2 mmol/L (3.5-5.1); SODIUM 145 mmol/L (136-145)
--- NOTE | 2018-05-12 01:19 | Diagnostic Imaging Report ---
CHEST SINGLE (PORTABLE), 05/12/2018 12:00 AM Technique: CHEST SINGLE (PORTABLE) Comparison: 02/09/2018 Clinical history: Shortness of breath Findings: See Impression. Right costophrenic angle excluded. Impression: Severely limited by portable technique, motion and soft tissue attenuation. Recommend upright PA and lateral when feasible. 1. Stable enlarged cardiomediastinal silhouette. 2. Central vascular congestion and/or edema. Stable left basilar opacity and pleural effusion. Signed by: Dr Lisa Heaton MD on 05/12/2018 1:15 AM
[2018-05-12] MEDS ORDERED: FUROSEMIDE INJ 10 MG/ML 4 ML VIAL IV ONE (01:45)
[2018-05-12] MEDS: ALBUTEROL/IPRATROPIUM 3 ML NEB NEB SCH ×6 (03:25→23:45)
[2018-05-12 05:37] LABS: ABG PCO2 100 mmHg (41-51); ABG PH 7.27 (7.31-7.41); ABG PO2 142 mmHg (80-105)
[2018-05-12 05:38] LABS: ABG HCO3 46 mmol/L (23-28)
[2018-05-12] MEDS ORDERED: METHYLPREDNISOLONE SOD SUCC 40 MG/ML VIAL IV STA (08:26)
[2018-05-12] MEDS ORDERED: METHYLPREDNISOLONE SOD SUCC 40 MG/ML VIAL IV NR (08:45)
[2018-05-12] MEDS: FUROSEMIDE INJ 10 MG/ML 4 ML VIAL IV SCH ×2 (08:55→17:15)
[2018-05-12] MEDS: DOXYCYCLINE 100MG/NS 100ML 100 ML IV SCH ×2 (08:57→20:58)
[2018-05-12] MEDS: DESOXIMETASONE TOP SCH ×2 (09:00→16:40)
[2018-05-12] MEDS: TRIAMCINOLONE ACET 0.1% CREAM 15 GM TUBE TOP SCH ×3 (09:00→20:58)
[2018-05-12] MEDS ORDERED: FUROSEMIDE INJ 10 MG/ML 4 ML VIAL IV SCH (09:00)
[2018-05-12] MEDS ORDERED: CHOLECALCIFEROL 2000 UNIT PO SCH (09:00)
--- NOTE | 2018-05-12 09:14 | History and Physical ---
CHIEF COMPLAINT: Worsening dyspnea and congestion. HISTORY OF PRESENT ILLNESS: The patient is a 63-year-old man. He has a history of COPD, obstructive sleep apnea, obesity hypoventilation syndrome, and recurrent congestive heart failure. He required hospitalization several times over the past year for fluid overload. He improved with Lasix. The patient comes in complaining of worsening dyspnea. He does not have any chest pain. There are no fevers. He is not having phlegm production. He has no abdominal pain. There is no nausea or vomiting. Upon evaluation in the ER, he had pulmonary edema on his chest x-ray. He received some diuretics and notes some improvement. He also received some BiPAP. PAST MEDICAL HISTORY: 1. COPD. 2. Obstructive sleep apnea. 3. Obesity hypoventilation syndrome. 4. Atrial fibrillation. 5. Congestive heart failure. SOCIAL HISTORY: The patient is a former smoker. He is not a drinker. SURGICAL HISTORY: 1. Knee surgery. 2. Iliac stent, 2004. REVIEW OF SYSTEMS: He does note some dyspnea. He is not having any headache. He has no neck pain. He is not having any chest pain. He does complain of some dyspnea and cough. He is not having any abdominal pain. There is no nausea or vomiting. He does have some leg edema. PHYSICAL EXAMINATION: VITAL SIGNS: The patient is afebrile. The vital signs are stable. He is on BiPAP. His blood pressure is 147/78 and his pulse is 78. HEENT: Shows no facial swelling or erythema. The oropharynx is normal. LYMPHATIC: Shows no submandibular, cervical, or supraclavicular adenopathy. NECK: Shows no JVD or thyromegaly. There is no nuchal rigidity. CARDIAC: Reveals a regular rate and rhythm with a normal S1 and S2. CHEST: Auscultation of lungs reveals crackles at both bases. ABDOMEN: Soft and nontender. There is no rebound or guarding. EXTREMITIES: Shows 2+ leg edema. LABORATORY DATA: The blood counts are within normal limits. The BUN to creatinine ratio is normal. The other electrolytes are within normal limits. BNP is 1790. RADIOGRAPHIC DATA: Chest x-ray shows bilateral interstitial changes and cephalization along with cardiomegaly. IMPRESSION: 1. Tpbfy-dg-mgetsdn hypercapnic respiratory failure. 2. Chronic obstructive pulmonary disease. 3. Obesity hypoventilation syndrome. 4. Sleep apnea. 5. Atrial fibrillation. 6. Congestive heart failure. PLAN: 1. The patient will receive diuresis. 2. To continue BiPAP and monitor. 3. Bronchodilators. 4. Low-dose corticosteroids. Job#: [id number]
[2018-05-12] MEDS: SERTRALINE HCL 100 MG TAB PO SCH (10:08)
[2018-05-12] MEDS: CHOLECALCIFEROL 1,000 UNIT TAB PO SCH (10:08)
[2018-05-12] MEDS: POTASSIUM CHLORIDE 10 MEQ TABCR PO SCH (10:08)
[2018-05-12] MEDS: BISOPROLOL FUMARATE 10 MG TAB PO SCH ×2 (10:08→17:15)
[2018-05-12] MEDS: CLONIDINE HCL 0.2 MG TAB PO SCH ×2 (10:08→17:16)
[2018-05-12 10:20] LABS: CREATINE KINASE MB 2.1 ng/mL (0-5.0)
[2018-05-12 14:09] VITALS: BP 147/83
[2018-05-12 14:15] VITALS: BP 147/83
[2018-05-12 14:26] VITALS: BP 147/83
[2018-05-12 14:52] LABS: CHOL/HDL RATIO 4.2 (3.9-4.7)
[2018-05-12 15:12] LABS: THYROID STIMULATING HORMONE 0.45 uIU/mL (0.350-4.940)
--- NOTE | 2018-05-12 15:57 | Consultation ---
DATE OF CONSULTATION: May 12, 2018 CARDIOLOGY CONSULTATION REQUESTING PHYSICIAN: Dr. Sandeep Chester. REASON FOR CONSULTATION: CHF. HISTORY OF PRESENT ILLNESS: Mr. Hough is a 63-year-old gentleman with past medical history as listed below. Presented with complaints of shortness of breath. Patient states that he has been short of breath for the last 3 to 4 days, which has been getting gradually worse. He has also had a lot of leg swelling, short of breath at rest and on minimal exertion. He was noted to be in CHF and is being admitted to the hospital. He normally follows up with Dr. Mo Chester. He denies any chest pain. No abdominal pain, vomiting or diarrhea. REVIEW OF SYMPTOMS: CONSTITUTIONAL: Has fatigue and weakness. HEENT: No headache, blurring of vision, seizure or syncope. CARDIOVASCULAR: No chest pain. Has dyspnea, has orthopnea, has leg edema. RESPIRATORY: No cough, fever, expectoration. GI: No abdominal pain, vomiting, diarrhea. : No dysuria, frequency, incontinence. ALLERGIES: NO KNOWN DRUG ALLERGIES. MEDICATIONS: See list. PAST MEDICAL HISTORY: 1. History of hypertension. 2. History of COPD. 3. History of CHF. 4. History of depression. 5. History of arthritis. 6. History of psoriasis. 7. History of sleep apnea. 8. History of PAD. 9. History of CAD. 10. History of diverticulitis. SOCIAL HISTORY: Smokes 1 to 2 packs a day, does not drink alcohol. FAMILY HISTORY: Noncontributory. PHYSICAL EXAMINATION: GENERAL: A morbidly obese gentleman, alert, not in any obvious distress. VITALS: Heart rate is 54, blood pressure is 147/83, respiratory rate . HEENT: Atraumatic. NECK: No JVD, bruit, thyromegaly, lymphadenopathy. CARDIOVASCULAR: First and second heart sounds heard. No murmurs, rubs or gallops appreciated. Heart sounds are muffled. RESPIRATORY: Decreased air entry at the bases. No adventitious sounds appreciated. ABDOMINAL: Obese, nontender. EXTREMITIES: 3+ edema with chronic skin changes. Has a psoriatic rash on his abdomen and his forearms. LABORATORY DATA: WBC is 9.8, hemoglobin is 17.5, hematocrit is 59.2, platelets are 152. Sodium is 145, potassium 4.2, chloride is 96, bicarb is 39, BUN is 13, creatinine 0.7, glucose is 163. Total bilirubin 0.6, AST is 19, ALT is 43, alk phos is 101. Troponin 0.021, 0.022. BNP 1790. EKG: Shows sinus rhythm at 84 beats per minute, normal axis, intraventricular conduction delay, Q waves in V1 and V2, nonspecific ST-T changes. IMPRESSION: 1. Congestive heart failure. 2. Hypertension. 3. Obesity. 4. History of sleep apnea. 5. Chronic obstructive pulmonary disease. 6. History of coronary artery disease. 7. History of peripheral arterial disease. PLAN: 1. IV diuresis. 2. Get echocardiogram to assess LV function and valvular function. 3. The patient has been placed on a BiPAP. 4. Continue with the antihypertensives. 5. Add SHAE inhibitors to his regimen. 6. I's and O's. 7. Periodic weights. 8. Fluid restriction. I discussed my impression and plan of management with the patient. As always, appreciate and thank you very much for your referrals. Job#: [id number] EV
[2018-05-12 16:50] LABS: ABG HCO3 47 mmol/L (23-28); ABG PCO2 92 mmHg (41-51); ABG PH 7.32 (7.31-7.41); ABG PO2 63 mmHg (80-105)
[2018-05-12] MEDS: LISINOPRIL 2.5 MG TAB PO SCH (17:15)
[2018-05-12 19:30] VITALS: BP 115/66
[2018-05-12 20:00] VITALS: BP 115/66
[2018-05-12] MEDS ORDERED: SODIUM CHLORIDE 0.9% 250ML 250 ML ONE (20:43)
[2018-05-12 20:47] LABS: CREATINE KINASE MB 1.5 ng/mL (0-5.0)
[2018-05-12] MEDS: TEMAZEPAM 15 MG CAP PO SCH (20:58)
[2018-05-12] MEDS: SIMVASTATIN 40 MG TAB PO SCH (20:58)
[2018-05-12 23:30] VITALS: BP 127/94
[2018-05-13] VITALS (10 sets, daily range): BP systolic 111–143; BP diastolic 57–75
[2018-05-13] MEDS: ALBUTEROL/IPRATROPIUM 3 ML NEB NEB SCH ×6 (03:15→23:25)
[2018-05-13 05:19] LABS: BASOPHILS % 0.5 % (0.0-1.0); EOSINOPHILS % 0.1 % (0.0-6.0); HEMATOCRIT 57.8 % (38.2-49.6); HEMOGLOBIN 17.3 g/dL (14.0-18.0); LYMPHOCYTES % 12.9 % (18.0-39.1); MEAN CORPUSCULAR HEMOGLOBIN 30.9 pg (28-32); MEAN CORPUSCULAR HGB CONC 29.9 g/dL (31-35); MEAN CORPUSCULAR VOLUME 103.4 fL (81-99); MONOCYTES # (AUTO) 0.8 (0.2-0.8); MONOCYTES % 10.3 % (4.4-11.3); NEUTROPHILS # (AUTO) 5.6 (2.1-6.9); NEUTROPHILS % 75.8 % (38.7-80.0); PLATELET COUNT 149 x10e3/uL (140-360); RED BLOOD COUNT 5.59 x10e6/uL (4.3-5.7); RED CELL DISTRIBUTION WIDTH 16.9 % (11.7-14.4)
[2018-05-13 05:42] LABS: ALANINE AMINOTRANSFERASE 28 IU/L (0-55); ALBUMIN 2.6 g/dL (3.5-5.0); ALBUMIN/GLOBULIN RATIO 0.8 (0.8-2.0); ALKALINE PHOSPHATASE 75 IU/L (40-150); BLOOD UREA NITROGEN 20 mg/dL (7-26); BUN/CREATININE RATIO 30 (6-25); CALCIUM 8.7 mg/dL (8.4-10.2); CHLORIDE 93 mmol/L (98-107); CREATININE, SERUM 0.67 mg/dL (0.72-1.25); EST GLOMERULAR FILTRATION RATE > 60 ML/MIN (60-); GLUCOSE 99 mg/dL (74-118); SODIUM 145 mmol/L (136-145)
[2018-05-13 05:44] LABS: CARBON DIOXIDE 41 mmol/L (22-29)
[2018-05-13] MEDS: DESOXIMETASONE TOP SCH ×2 (08:12→16:09)
--- NOTE | 2018-05-13 09:07 | Progress Note ---
DATE: PULMONARY/CRITICAL CARE PROGRESS NOTE SUBJECTIVE: The patient is negative about 2.5 liters over the past 3 to 6 hours. He reports some improvement in his dyspnea. He continues on BiPAP. PHYSICAL EXAMINATION VITAL SIGNS: The patient is afebrile. Blood pressure is 113/57, and the saturation is 89% on BiPAP. HEENT: Examination shows no facial swelling or erythema. The oropharynx is normal. LYMPHATIC: Examination shows no submandibular, cervical or supraclavicular adenopathy. CARDIAC: Exam reveals regular rate and rhythm with normal S1 and S2. There are no murmurs or rubs. LUNGS: Auscultation of the lungs reveals decreased breath sounds at the bases. ABDOMEN: Soft and nontender. There is no rebound or guarding. EXTREMITIES: There is 2+ leg edema. LABORATORY DATA: The CBC is within normal limits. The XHG-oq-jimorsrlph ratio is normal. Magnesium is 1.4. IMPRESSION 1. Vcqzm-ph-ehxozmn mixed systolic and diastolic heart failure. 2. Wmdby-gr-nhrkrgc respiratory failure. 3. Chronic obstructive pulmonary disease. 4. Obesity-hypoventilation syndrome. 5. Obstructive sleep apnea. PLAN 1. Continue diuretics. 2. Bronchodilators. 3. Corticosteroids as needed. 4. Continue BiPAP and wean oxygen as tolerated. 5. Physical therapy. 6. Dietary consult. Job#: [id number]
[2018-05-13] MEDS: BISOPROLOL FUMARATE 10 MG TAB PO SCH ×2 (09:11→17:36)
[2018-05-13] MEDS: FUROSEMIDE INJ 10 MG/ML 4 ML VIAL IV SCH ×2 (09:11→17:36)
[2018-05-13] MEDS: CHOLECALCIFEROL 1,000 UNIT TAB PO SCH (09:11)
[2018-05-13] MEDS: LISINOPRIL 2.5 MG TAB PO SCH (09:11)
[2018-05-13] MEDS: TRIAMCINOLONE ACET 0.1% CREAM 15 GM TUBE TOP SCH ×3 (09:11→20:01)
[2018-05-13] MEDS: CLONIDINE HCL 0.2 MG TAB PO SCH ×2 (09:11→17:36)
[2018-05-13] MEDS: SERTRALINE HCL 100 MG TAB PO SCH (09:11)
[2018-05-13] MEDS: DOXYCYCLINE 100MG/NS 100ML 100 ML IV SCH ×2 (09:11→20:01)
[2018-05-13] MEDS: POTASSIUM CHLORIDE 10 MEQ TABCR PO SCH (09:17)
--- NOTE | 2018-05-13 15:12 | Diagnostic Imaging Report ---
EXAMINATION: CHEST 2 VIEWS 05/13/2018 7:00 AM COMPARISON: 05/12/2018 and prior INDICATION: CHF DISCUSSION: Limited examination due to portable technique and soft tissue attenuation LINES: None. LUNGS: Pulmonary edema is stable or slightly improved. PLEURA: Left pleural effusion with left basilar atelectasis, unchanged HEART AND MEDIASTINUM: Mild cardiomegaly, unchanged. Atherosclerosis of the thoracic aorta. BONES AND SOFT TISSUES: No acute osseous lesion. The soft tissues are normal. IMPRESSION: Interstitial edema is stable or slightly improved. Persistent cardiomegaly and left pleural effusion. Peña Treadwell MD Signed by: Dr. Peña Treadwell M.D. on 05/13/2018 3:08 PM
[2018-05-13] MEDS: TEMAZEPAM 15 MG CAP PO SCH (20:01)
[2018-05-13] MEDS: SIMVASTATIN 40 MG TAB PO SCH (20:01)
[2018-05-14] VITALS (8 sets, daily range): BP systolic 138–164; BP diastolic 68–85
[2018-05-14] MEDS: ALBUTEROL/IPRATROPIUM 3 ML NEB NEB SCH ×6 (03:45→23:55)
--- NOTE | 2018-05-14 05:34 | Diagnostic Imaging Report ---
CHEST 2 VIEWS, 05/14/2018 7:00 AM Technique: CHEST 2 VIEWS Comparison: 05/13/2018 Clinical history: Congestive heart failure Findings: See Impression. Impression: Limited by soft tissue attenuation 1. Stable enlarged cardiomediastinal silhouette. 2. Pulmonary edema. Stable small left effusion. Trace right effusion. Signed by: Dr Lisa Heaton MD on 05/14/2018 5:30 AM
[2018-05-14 05:50] LABS: BASOPHILS # (AUTO) 0.1 (0.0-0.1); BASOPHILS % 0.8 % (0.0-1.0); EOSINOPHILS # (AUTO) 0.1 (0.0-0.4); EOSINOPHILS % 0.8 % (0.0-6.0); HEMATOCRIT 54.2 % (38.2-49.6); HEMOGLOBIN 16.5 g/dL (14.0-18.0); LYMPHOCYTES % 13.6 % (18.0-39.1); MEAN CORPUSCULAR HEMOGLOBIN 31.1 pg (28-32); MEAN CORPUSCULAR HGB CONC 30.4 g/dL (31-35); MEAN CORPUSCULAR VOLUME 102.3 fL (81-99); MONOCYTES # (AUTO) 0.7 (0.2-0.8); MONOCYTES % 8.8 % (4.4-11.3); NEUTROPHILS # (AUTO) 5.7 (2.1-6.9); NEUTROPHILS % 75.5 % (38.7-80.0); PLATELET COUNT 153 x10e3/uL (140-360); RED CELL DISTRIBUTION WIDTH 16.4 % (11.7-14.4)
[2018-05-14 06:28] LABS: ALANINE AMINOTRANSFERASE 21 IU/L (0-55); ALBUMIN 2.7 g/dL (3.5-5.0); ALBUMIN/GLOBULIN RATIO 0.8 (0.8-2.0); ALKALINE PHOSPHATASE 70 IU/L (40-150); ANION GAP 12.5 mmol/L (8-16); BLOOD UREA NITROGEN 24 mg/dL (7-26); BUN/CREATININE RATIO 35 (6-25); CHLORIDE 92 mmol/L (98-107); CREATININE, SERUM 0.69 mg/dL (0.72-1.25); EST GLOMERULAR FILTRATION RATE > 60 ML/MIN (60-); GLUCOSE 135 mg/dL (74-118); POTASSIUM 3.5 mmol/L (3.5-5.1); SODIUM 145 mmol/L (136-145)
[2018-05-14 06:31] LABS: CARBON DIOXIDE 44 mmol/L (22-29)
[2018-05-14] MEDS: FUROSEMIDE INJ 10 MG/ML 4 ML VIAL IV SCH ×2 (08:08→16:28)
[2018-05-14] MEDS: DESOXIMETASONE TOP SCH ×2 (08:08→16:18)
[2018-05-14] MEDS: BISOPROLOL FUMARATE 10 MG TAB PO SCH ×2 (08:08→16:28)
[2018-05-14] MEDS: SERTRALINE HCL 100 MG TAB PO SCH (08:08)
[2018-05-14] MEDS: CHOLECALCIFEROL 1,000 UNIT TAB PO SCH (08:08)
[2018-05-14] MEDS: CLONIDINE HCL 0.2 MG TAB PO SCH ×2 (08:09→16:28)
[2018-05-14] MEDS: TRIAMCINOLONE ACET 0.1% CREAM 15 GM TUBE TOP SCH ×3 (08:09→20:49)
[2018-05-14] MEDS: LISINOPRIL 2.5 MG TAB PO SCH (08:09)
[2018-05-14] MEDS: DOXYCYCLINE 100MG/NS 100ML 100 ML IV SCH (08:09)
[2018-05-14] MEDS: POTASSIUM CHLORIDE 10 MEQ TABCR PO SCH (08:10)
[2018-05-14] MEDS ORDERED: POTASSIUM CHLORIDE 20 MEQ TAB CR PO NR ×2 (08:45→16:30)
[2018-05-14] MEDS ORDERED: ACETAZOLAMIDE SODIUM 500 MG/VIAL IV NR (08:45)
[2018-05-14] MEDS ORDERED: ZOLPIDEM TARTRATE 5 MG TAB PO PRN (08:45)
[2018-05-14] MEDS ORDERED: METHYLPREDNISOLONE SOD SUCC 125 MG/2ML VIAL IV NR (08:45)
[2018-05-14] MEDS: AZITHROMYCIN 500MG/NS 250 ML 250 ML IV SCH (09:43)
--- NOTE | 2018-05-14 09:48 | Progress Note ---
DATE: PULMONARY PROGRESS NOTE SUBJECTIVE: The patient reports some improvement. He still requires BiPAP. He did have another 700 mL of diuresis last night. PHYSICAL EXAMINATION VITAL SIGNS: Stable. He is on BiPAP at this time with 60% oxygen. HEENT: No facial swelling or erythema. CARDIAC: Regular rate and rhythm with normal S1 and S2. There are no murmurs or rubs. LUNGS: Auscultation of the lungs reveals decreased breath sounds at the bases. ABDOMEN: Soft and nontender. There is 1 to 2+ leg edema. IMPRESSION 1. Crsah-wb-qkcmgjq respiratory failure. 2. Tclbd-gc-pckanxz systolic and diastolic heart failure. PLAN 1. The patient will continue to receive diuretics. 2. He will receive a dose of Diamox today. 3. Solu-Medrol times 1 dose. 4. Replace potassium. 5. Physical therapy. 6. Wean BiPAP as tolerated. Job#: [id number]
[2018-05-14 11:28] LABS: CLARITY,URINE CLEAR (CLEAR); COLOR,URINE STRAW (YELLOW)
[2018-05-14 11:29] LABS: BILIRUBIN,URINE NEGATIVE (NEGATIVE); KETONES,URINE NEGATIVE (NEGATIVE); LEUKOCYTE ESTERASE ,URINE NEGATIVE (NEGATIVE); NITRITE,URINE NEGATIVE (NEGATIVE); PROTEIN,URINE DIPSTICK NEGATIVE (NEGATIVE); URINE UROBILINOGEN 0.2 mg/dL (0.2 - 1)
[2018-05-14] MEDS: HYDROCODONE/APAP 5MG-325MG TAB PO PRN (19:27)
[2018-05-14] MEDS: SIMVASTATIN 40 MG TAB PO SCH (20:49)
[2018-05-14] MEDS: TEMAZEPAM 15 MG CAP PO SCH (20:49)
[2018-05-15] VITALS (7 sets, daily range): BP systolic 135–169; BP diastolic 65–77
[2018-05-15] MEDS: ALBUTEROL/IPRATROPIUM 3 ML NEB NEB SCH ×6 (04:00→22:20)
[2018-05-15 04:54] LABS: BASOPHILS % 0.7 % (0.0-1.0); EOSINOPHILS % 0.3 % (0.0-6.0); HEMATOCRIT 55.2 % (38.2-49.6); HEMOGLOBIN 16.9 g/dL (14.0-18.0); LYMPHOCYTES # (AUTO) 0.9 (1.0-3.2); LYMPHOCYTES % 15.5 % (18.0-39.1); MEAN CORPUSCULAR HGB CONC 30.6 g/dL (31-35); MEAN CORPUSCULAR VOLUME 101.1 fL (81-99); MONOCYTES # (AUTO) 0.5 (0.2-0.8); MONOCYTES % 7.9 % (4.4-11.3); NEUTROPHILS # (AUTO) 4.6 (2.1-6.9); NEUTROPHILS % 75.3 % (38.7-80.0); PLATELET COUNT 142 x10e3/uL (140-360); RED BLOOD COUNT 5.46 x10e6/uL (4.3-5.7); RED CELL DISTRIBUTION WIDTH 16.1 % (11.7-14.4)
[2018-05-15 05:22] LABS: ALANINE AMINOTRANSFERASE 21 IU/L (0-55); ALBUMIN 2.8 g/dL (3.5-5.0); ALBUMIN/GLOBULIN RATIO 0.8 (0.8-2.0); ALKALINE PHOSPHATASE 66 IU/L (40-150); ANION GAP 13.3 mmol/L (8-16); BLOOD UREA NITROGEN 21 mg/dL (7-26); BUN/CREATININE RATIO 29 (6-25); CARBON DIOXIDE 36 mmol/L (22-29); CHLORIDE 99 mmol/L (98-107); CREATININE, SERUM 0.72 mg/dL (0.72-1.25); EST GLOMERULAR FILTRATION RATE > 60 ML/MIN (60-); GLUCOSE 176 mg/dL (74-118); MAGNESIUM 1.8 MG/DL (1.3-2.1); POTASSIUM 3.3 mmol/L (3.5-5.1); SODIUM 145 mmol/L (136-145)
[2018-05-15] MEDS ORDERED: POTASSIUM CHLORIDE 20 MEQ TAB CR PO STA (08:09)
[2018-05-15] MEDS ORDERED: ACETAZOLAMIDE SODIUM 500 MG/VIAL IV ONE (08:30)
[2018-05-15] MEDS: DESOXIMETASONE TOP SCH ×2 (09:00→17:00)
[2018-05-15] MEDS: AZITHROMYCIN 500MG/NS 250 ML 250 ML IV SCH (09:51)
[2018-05-15] MEDS: CHOLECALCIFEROL 1,000 UNIT TAB PO SCH (09:52)
[2018-05-15] MEDS: POTASSIUM CHLORIDE 10 MEQ TABCR PO SCH (09:52)
[2018-05-15] MEDS: SERTRALINE HCL 100 MG TAB PO SCH (09:52)
[2018-05-15] MEDS: FUROSEMIDE INJ 10 MG/ML 4 ML VIAL IV SCH ×2 (09:53→18:11)
[2018-05-15] MEDS: BISOPROLOL FUMARATE 10 MG TAB PO SCH ×2 (09:53→18:11)
[2018-05-15] MEDS: POTASSIUM CHLORIDE 20 MEQ TAB CR PO STA ×2 (09:56→11:50)
[2018-05-15] MEDS: CLONIDINE HCL 0.2 MG TAB PO SCH ×2 (09:57→18:11)
[2018-05-15] MEDS: LISINOPRIL 2.5 MG TAB PO SCH (09:57)
[2018-05-15] MEDS: TRIAMCINOLONE ACET 0.1% CREAM 15 GM TUBE TOP SCH ×3 (11:04→20:12)
[2018-05-15] MEDS ORDERED: POTASSIUM CHLORIDE 20 MEQ TAB CR PO SCH (18:00)
[2018-05-15] MEDS: TEMAZEPAM 15 MG CAP PO SCH (20:12)
[2018-05-15] MEDS: SIMVASTATIN 40 MG TAB PO SCH (20:12)
[2018-05-16] VITALS (9 sets, daily range): BP systolic 123–149; BP diastolic 60–79
[2018-05-16] MEDS: ALBUTEROL/IPRATROPIUM 3 ML NEB NEB SCH ×6 (02:28→22:20)
[2018-05-16 04:43] LABS: BASOPHILS # (AUTO) 0.1 (0.0-0.1); BASOPHILS % 1.1 % (0.0-1.0); EOSINOPHILS # (AUTO) 0.1 (0.0-0.4); EOSINOPHILS % 1.4 % (0.0-6.0); HEMATOCRIT 56.8 % (38.2-49.6); HEMOGLOBIN 17.1 g/dL (14.0-18.0); LYMPHOCYTES # (AUTO) 1.2 (1.0-3.2); LYMPHOCYTES % 20.4 % (18.0-39.1); MEAN CORPUSCULAR HEMOGLOBIN 30.7 pg (28-32); MEAN CORPUSCULAR HGB CONC 30.1 g/dL (31-35); MONOCYTES # (AUTO) 0.5 (0.2-0.8); MONOCYTES % 9.4 % (4.4-11.3); NEUTROPHILS # (AUTO) 3.8 (2.1-6.9); NEUTROPHILS % 67.3 % (38.7-80.0); PLATELET COUNT 143 x10e3/uL (140-360); RED BLOOD COUNT 5.57 x10e6/uL (4.3-5.7); RED CELL DISTRIBUTION WIDTH 15.9 % (11.7-14.4)
[2018-05-16 05:21] LABS: ALANINE AMINOTRANSFERASE 19 IU/L (0-55); ALBUMIN 2.8 g/dL (3.5-5.0); ALBUMIN/GLOBULIN RATIO 0.8 (0.8-2.0); ALKALINE PHOSPHATASE 61 IU/L (40-150); ANION GAP 14.8 mmol/L (8-16); BLOOD UREA NITROGEN 27 mg/dL (7-26); BUN/CREATININE RATIO 39 (6-25); CALCIUM 8.9 mg/dL (8.4-10.2); CARBON DIOXIDE 33 mmol/L (22-29); CHLORIDE 103 mmol/L (98-107); EST GLOMERULAR FILTRATION RATE > 60 ML/MIN (60-); GLUCOSE 87 mg/dL (74-118); POTASSIUM 3.8 mmol/L (3.5-5.1); SODIUM 147 mmol/L (136-145)
[2018-05-16] MEDS: DESOXIMETASONE TOP SCH ×2 (09:00→17:00)
--- NOTE | 2018-05-16 09:08 | Progress Note ---
DATE: Patient is now on cannula. He still uses the BiPAP at night and intermittently. PHYSICAL EXAMINATION VITALS: The patient is afebrile. The vital signs are stable. HEENT: Shows no facial swelling or erythema. The nasal mucosa is normal. LYMPHATICS: Shows no submandibular, cervical or supraclavicular adenopathy. CARDIAC: Reveals a regular rate and rhythm with a normal S1 and S2. There are no murmurs or rubs. LUNGS: Auscultation of the lungs reveals clear breath sounds bilaterally. There is no wheezing. ABDOMEN: Soft and nontender. There is no rebound or guarding. EXTREMITIES: No leg edema or calf tenderness. IMPRESSION 1. Uugct-fl-dtrmvzl respiratory failure. 2. Pulmonary edema. 3. Hypertension. PLAN 1. Repeat PA and lateral chest x-ray. 2. Decrease diuretics. 3. Continue physical therapy. 4. Continue BiPAP intermittently. Job#: [id number] ADRI
[2018-05-16] MEDS: POTASSIUM CHLORIDE 10 MEQ TABCR PO SCH (10:01)
[2018-05-16] MEDS: SERTRALINE HCL 100 MG TAB PO SCH (10:01)
[2018-05-16] MEDS: FUROSEMIDE INJ 10 MG/ML 4 ML VIAL IV SCH (10:01)
[2018-05-16] MEDS: CHOLECALCIFEROL 1,000 UNIT TAB PO SCH (10:01)
[2018-05-16] MEDS: AZITHROMYCIN 500MG/NS 250 ML 250 ML IV SCH (10:01)
[2018-05-16] MEDS: TRIAMCINOLONE ACET 0.1% CREAM 15 GM TUBE TOP SCH ×3 (10:02→20:20)
[2018-05-16] MEDS: HYDROCODONE/APAP 5MG-325MG TAB PO PRN ×2 (10:28→20:20)
[2018-05-16] MEDS: CLONIDINE HCL 0.2 MG TAB PO SCH ×2 (10:39→18:59)
[2018-05-16] MEDS: BISOPROLOL FUMARATE 10 MG TAB PO SCH ×2 (10:40→19:30)
[2018-05-16] MEDS: LISINOPRIL 2.5 MG TAB PO SCH (10:40)
--- NOTE | 2018-05-16 11:04 | Diagnostic Imaging Report ---
PROCEDURE: X-RAY CHEST, TWO VIEWS COMPARISON: Patients [facility], DX, CHEST 2 VIEWS, 05/14/2018, 4:33. INDICATIONS: SHORTNESS OF BREATH FINDINGS: LUNGS: No change in the pulmonary edema. PLEURA: There is a small-moderate left pleural effusion. HEART \T\ MEDIASTINUM: The heart remains enlarged. BONES \T\ SOFT TISSUES: No acute findings. Degenerative changes of the spine. CONCLUSION: Cardiomegaly, pulmonary edema and left pleural effusion not significantly changed. Deo Davalos D.O. Dictated by: Deo Davalos D.O. on 05/16/2018 at 9:28 Electronically approved by: Deo Davalos D.O. on 05/16/2018 at 9:28
[2018-05-16] MEDS: SIMVASTATIN 40 MG TAB PO SCH (20:20)
[2018-05-16] MEDS: TEMAZEPAM 15 MG CAP PO SCH (21:00)
[2018-05-17] VITALS (8 sets, daily range): BP systolic 127–174; BP diastolic 52–77
[2018-05-17] MEDS: ALBUTEROL/IPRATROPIUM 3 ML NEB NEB SCH ×6 (02:50→22:10)
[2018-05-17 05:12] LABS: BASOPHILS # (AUTO) 0.1 (0.0-0.1); BASOPHILS % 1.2 % (0.0-1.0); EOSINOPHILS # (AUTO) 0.1 (0.0-0.4); EOSINOPHILS % 1.8 % (0.0-6.0); HEMATOCRIT 56.7 % (38.2-49.6); LYMPHOCYTES # (AUTO) 1.3 (1.0-3.2); LYMPHOCYTES % 20.6 % (18.0-39.1); MEAN CORPUSCULAR HEMOGLOBIN 30.7 pg (28-32); MEAN CORPUSCULAR VOLUME 102.3 fL (81-99); MONOCYTES # (AUTO) 0.6 (0.2-0.8); MONOCYTES % 9.2 % (4.4-11.3); NEUTROPHILS # (AUTO) 4.1 (2.1-6.9); NEUTROPHILS % 66.9 % (38.7-80.0); PLATELET COUNT 137 x10e3/uL (140-360); RED BLOOD COUNT 5.54 x10e6/uL (4.3-5.7); RED CELL DISTRIBUTION WIDTH 15.8 % (11.7-14.4)
[2018-05-17 06:21] LABS: ALANINE AMINOTRANSFERASE 18 IU/L (0-55); ALBUMIN 2.8 g/dL (3.5-5.0); ALBUMIN/GLOBULIN RATIO 0.8 (0.8-2.0); ALKALINE PHOSPHATASE 62 IU/L (40-150); ANION GAP 11.9 mmol/L (8-16); BLOOD UREA NITROGEN 25 mg/dL (7-26); BUN/CREATININE RATIO 38 (6-25); CALCIUM 8.9 mg/dL (8.4-10.2); CARBON DIOXIDE 33 mmol/L (22-29); CHLORIDE 107 mmol/L (98-107); CREATININE, SERUM 0.66 mg/dL (0.72-1.25); EST GLOMERULAR FILTRATION RATE > 60 ML/MIN (60-); GLUCOSE 90 mg/dL (74-118); POTASSIUM 3.9 mmol/L (3.5-5.1); SODIUM 148 mmol/L (136-145)
[2018-05-17] MEDS: FUROSEMIDE INJ 10 MG/ML 4 ML VIAL IV SCH (08:54)
[2018-05-17] MEDS: AZITHROMYCIN 500MG/NS 250 ML 250 ML IV SCH (08:54)
[2018-05-17] MEDS: POTASSIUM CHLORIDE 10 MEQ TABCR PO SCH (08:55)
[2018-05-17] MEDS: CLONIDINE HCL 0.2 MG TAB PO SCH ×2 (08:55→17:04)
[2018-05-17] MEDS: LISINOPRIL 10 MG TAB PO SCH (08:55)
[2018-05-17] MEDS: CHOLECALCIFEROL 1,000 UNIT TAB PO SCH (08:55)
[2018-05-17] MEDS: BISOPROLOL FUMARATE 10 MG TAB PO SCH ×2 (08:56→17:04)
[2018-05-17] MEDS: DESOXIMETASONE TOP SCH ×2 (08:56→16:47)
[2018-05-17] MEDS: TRIAMCINOLONE ACET 0.1% CREAM 15 GM TUBE TOP SCH ×3 (08:56→20:36)
[2018-05-17] MEDS: SERTRALINE HCL 100 MG TAB PO SCH (08:56)
[2018-05-17] MEDS: HYDROCODONE/APAP 5MG-325MG TAB PO PRN (15:51)
[2018-05-17] MEDS: TEMAZEPAM 15 MG CAP PO SCH (20:36)
[2018-05-17] MEDS: SIMVASTATIN 40 MG TAB PO SCH (20:36)
[2018-05-18] MEDS: ALBUTEROL/IPRATROPIUM 3 ML NEB NEB SCH ×6 (02:10→23:25)
[2018-05-18 05:05] LABS: BASOPHILS # (AUTO) 0.1 (0.0-0.1); BASOPHILS % 0.9 % (0.0-1.0); EOSINOPHILS # (AUTO) 0.1 (0.0-0.4); EOSINOPHILS % 1.5 % (0.0-6.0); HEMATOCRIT 56.4 % (38.2-49.6); HEMOGLOBIN 17.2 g/dL (14.0-18.0); LYMPHOCYTES # (AUTO) 1.3 (1.0-3.2); MEAN CORPUSCULAR HEMOGLOBIN 30.9 pg (28-32); MEAN CORPUSCULAR HGB CONC 30.5 g/dL (31-35); MEAN CORPUSCULAR VOLUME 101.3 fL (81-99); MONOCYTES # (AUTO) 0.6 (0.2-0.8); MONOCYTES % 8.5 % (4.4-11.3); NEUTROPHILS # (AUTO) 4.6 (2.1-6.9); NEUTROPHILS % 69.8 % (38.7-80.0); PLATELET COUNT 124 x10e3/uL (140-360); RED BLOOD COUNT 5.57 x10e6/uL (4.3-5.7); RED CELL DISTRIBUTION WIDTH 15.6 % (11.7-14.4)
[2018-05-18 05:38] LABS: ALANINE AMINOTRANSFERASE 17 IU/L (0-55); ALBUMIN 2.8 g/dL (3.5-5.0); ALBUMIN/GLOBULIN RATIO 0.8 (0.8-2.0); ALKALINE PHOSPHATASE 60 IU/L (40-150); BLOOD UREA NITROGEN 21 mg/dL (7-26); BUN/CREATININE RATIO 33 (6-25); CALCIUM 8.8 mg/dL (8.4-10.2); CARBON DIOXIDE 32 mmol/L (22-29); CHLORIDE 106 mmol/L (98-107); CREATININE, SERUM 0.63 mg/dL (0.72-1.25); EST GLOMERULAR FILTRATION RATE > 60 ML/MIN (60-); GLUCOSE 88 mg/dL (74-118); SODIUM 148 mmol/L (136-145)
[2018-05-18] MEDS ORDERED: SODIUM CHLORIDE 0.9% 250ML 250 ML ONE (06:58)
[2018-05-18 07:05] VITALS: BP 150/75
[2018-05-18] MEDS: CHOLECALCIFEROL 1,000 UNIT TAB PO SCH (08:00)
[2018-05-18] MEDS: AZITHROMYCIN 500MG/NS 250 ML 250 ML IV SCH (08:00)
[2018-05-18] MEDS ORDERED: MAGNESIUM SULFATE 2GM/50ML 50 ML IV ONE (08:00)
[2018-05-18] MEDS: FUROSEMIDE INJ 10 MG/ML 4 ML VIAL IV SCH (08:00)
[2018-05-18] MEDS: LISINOPRIL 10 MG TAB PO SCH (08:04)
[2018-05-18] MEDS: CLONIDINE HCL 0.2 MG TAB PO SCH (08:04)
[2018-05-18] MEDS: BISOPROLOL FUMARATE 10 MG TAB PO SCH ×2 (08:04→17:23)
[2018-05-18] MEDS: SERTRALINE HCL 100 MG TAB PO SCH (08:04)
[2018-05-18] MEDS: TRIAMCINOLONE ACET 0.1% CREAM 15 GM TUBE TOP SCH ×3 (08:05→21:14)
[2018-05-18] MEDS: DESOXIMETASONE TOP SCH ×2 (08:05→16:19)
[2018-05-18] MEDS: POTASSIUM CHLORIDE 10 MEQ TABCR PO SCH (08:05)
[2018-05-18 11:45] VITALS: BP 135/76
--- NOTE | 2018-05-18 14:57 | Diagnostic Imaging Report ---
EXAMINATION: CHEST 2 VIEWS INDICATION: \S\CHF \[id number] \S\[id number] COMPARISON: Multiple chest radiographs with the most recent from 05/14/2018 FINDINGS: PA and lateral views TUBES and LINES: None. LUNGS: Lungs are well inflated. Unchanged bibasilar atelectasis. Bilateral interstitial edema, improved since prior exam. No new consolidations. PLEURA: Stable small left pleural effusion. No right pleural effusion. No pneumothorax. HEART AND MEDIASTINUM: Stable mild enlargement of the cardiac silhouette. BONES AND SOFT TISSUES: No acute osseous lesion. Soft tissues are unremarkable. UPPER ABDOMEN: No free air under the diaphragm. IMPRESSION: Bilateral interstitial edema, improved since 05/14/2018. Stable small left pleural effusion. Signed by: Dr. Yadira Blanchard M.D. on 05/18/2018 2:53 PM
[2018-05-18] MEDS: AMIODARONE HCL 200 MG TAB PO SCH ×2 (15:47→21:14)
[2018-05-18] MEDS ORDERED: CLONIDINE HCL 0.2 MG TAB PO SCH (17:00)
[2018-05-18] MEDS: CLONIDINE HCL 0.1 MG TAB PO SCH (17:22)
[2018-05-18 17:23] VITALS: BP 140/69
[2018-05-18 19:28] VITALS: BP 149/86
[2018-05-18 21:00] VITALS: BP 149/86
[2018-05-18] MEDS: TEMAZEPAM 15 MG CAP PO SCH (21:14)
[2018-05-18] MEDS: SIMVASTATIN 40 MG TAB PO SCH (21:14)
[2018-05-19] VITALS (7 sets, daily range): BP systolic 131–162; BP diastolic 63–100
[2018-05-19] MEDS: ALBUTEROL/IPRATROPIUM 3 ML NEB NEB SCH ×6 (02:35→23:13)
[2018-05-19] MEDS: DESOXIMETASONE TOP SCH ×2 (09:00→16:30)
[2018-05-19] MEDS: FUROSEMIDE INJ 10 MG/ML 4 ML VIAL IV SCH (09:33)
[2018-05-19] MEDS: POTASSIUM CHLORIDE 10 MEQ TABCR PO SCH (09:33)
[2018-05-19] MEDS: CLONIDINE HCL 0.1 MG TAB PO SCH ×2 (09:33→16:30)
[2018-05-19] MEDS: AZITHROMYCIN 500MG/NS 250 ML 250 ML IV SCH (09:33)
[2018-05-19] MEDS: TRIAMCINOLONE ACET 0.1% CREAM 15 GM TUBE TOP SCH ×3 (09:34→21:41)
[2018-05-19] MEDS: SERTRALINE HCL 100 MG TAB PO SCH (09:34)
[2018-05-19] MEDS: LISINOPRIL 10 MG TAB PO SCH (09:34)
[2018-05-19] MEDS: CHOLECALCIFEROL 1,000 UNIT TAB PO SCH (09:34)
[2018-05-19] MEDS: AMIODARONE HCL 200 MG TAB PO SCH ×3 (09:35→21:41)
[2018-05-19] MEDS: BISOPROLOL FUMARATE 10 MG TAB PO SCH ×2 (09:36→16:30)
[2018-05-19] MEDS: TEMAZEPAM 15 MG CAP PO SCH (21:22)
[2018-05-19] MEDS: HYDROCODONE/APAP 5MG-325MG TAB PO PRN (21:22)
[2018-05-19] MEDS: SIMVASTATIN 40 MG TAB PO SCH (21:41)
[2018-05-20] MEDS: ALBUTEROL/IPRATROPIUM 3 ML NEB NEB SCH ×2 (02:31→07:00)
[2018-05-20 04:11] VITALS: BP 128/61
[2018-05-20 07:44] VITALS: BP 145/76
[2018-05-20 07:45] VITALS: BP 145/76
[2018-05-20] MEDS: CLONIDINE HCL 0.1 MG TAB PO SCH (08:31)
[2018-05-20] MEDS: FUROSEMIDE INJ 10 MG/ML 4 ML VIAL IV SCH (08:31)
[2018-05-20] MEDS: SERTRALINE HCL 100 MG TAB PO SCH (08:31)
[2018-05-20] MEDS: AMIODARONE HCL 200 MG TAB PO SCH (08:31)
[2018-05-20] MEDS: LISINOPRIL 10 MG TAB PO SCH (08:31)
[2018-05-20] MEDS: POTASSIUM CHLORIDE 10 MEQ TABCR PO SCH (08:31)
[2018-05-20] MEDS: BISOPROLOL FUMARATE 10 MG TAB PO SCH (08:31)
[2018-05-20] MEDS: CHOLECALCIFEROL 1,000 UNIT TAB PO SCH (08:31)
[2018-05-20] MEDS: TRIAMCINOLONE ACET 0.1% CREAM 15 GM TUBE TOP SCH (08:32)
[2018-05-20] MEDS: DESOXIMETASONE TOP SCH (08:32)
== END 2018-05-20 12:07 | disposition home health service (06) | DRG 291 ==
LOC: ER 23:40 → ERHOLD 05-12 01:52 → IMCU 05-12 13:46
PROVIDERS: ADMIT Internal Medicine Critical Care Medicine; ATTEND Internal Medicine Critical Care Medicine
DX: I11.0 Hypertensive heart disease with heart failure (principal); J96.20 Acute and chronic respiratory failure, unspecified whether with hypoxia or hypercapnia; E66.2 Morbid (severe) obesity with alveolar hypoventilation; Z68.41 Body mass index [BMI] 40.0-44.9, adult; I50.43 Acute on chronic combined systolic (congestive) and diastolic (congestive) heart failure; G47.33 Obstructive sleep apnea (adult) (pediatric); J44.9 Chronic obstructive pulmonary disease, unspecified; F32.9 Major depressive disorder, single episode, unspecified; I25.10 Atherosclerotic heart disease of native coronary artery without angina pectoris; F17.210 Nicotine dependence, cigarettes, uncomplicated; E11.51 Type 2 diabetes mellitus with diabetic peripheral angiopathy without gangrene; Z79.4 Long term (current) use of insulin
CPT/HCPCS: 36415; 36600; 71045; 71046; 80053; 80061; 81001; 82550; 82553; 82805; 83735; 83880; 84443; 84484; 85025; 93005; 93306; 93970; 94640; 94660; 97139; 99284; J0456; J1940; J2920; J2930; J7050